=== PATIENT | female | born 1930 | race Caucasian/White ===

== ENCOUNTER 2017-10-26 19:03 | Inpatient (IN) | payer MEDICARE, OTHER ==
--- NOTE | 2017-10-26 20:23 | ED Physician Chart ---
ED Chief Complaint/HPI - Patient Information Date Seen:: 10/26/17 Time Seen:: 20:20 Chief Complaint:: agitation History of Present Illness:: location: general quality: agitation severity: moderate duration: one day context: SNF pt with psyc history today very agitated, striking out at staff and other residents, confused. no trauma to staff or patient reported. pt has no pain complaint. pt is deaf, cannot hear but is alert and can follow commands and read. transferred here from [facility]. no fever, no vomiting, no diarrhea. mod factors: none assoc s/s: none hx from SNF/EMS Allergies:: Allergies Allergy/AdvReac Type Severity Reaction Status Date / Time amoxicillin [From Augmentin] Allergy Verified 10/26/17 19:24 aspirin Allergy Verified 10/26/17 19:24 clavulanic acid Allergy Verified 10/26/17 19:24 [From Augmentin] Vitals:: Vital Signs - 8 hr 10/26/17 19:25 Temp 97.6 F HR 87 RR 19 BP 94/60 O2 Sat % 96 Historian:: EMS, Medical Records Review:: Nurse's Note Reviewed, EMS run form Reviewed ED Review of Systems - Review of Systems General/Constitutional: No fever Skin: No skin lesions ENT: No nasal drainage Neck: No stiffness Cardio Vascular: No edema Pulmonary: No cough GI: No vomiting, No diarrhea G/U: No hematuria Musculoskeletal: No bone or joint pain Psychiatric: Prior psych history Hematopoietic: No bruising Allergic/Immuno: No angioedema Neurological: No syncope, No seizure ED Past Medical History - Past Medical History Past Medical History: CHF, Dyslipidemia, Thyroid disorder, Other (pulmonary embolism) Family History: None Social History: Non Smoker, No Alcohol, No Drug Use, Single, Care Facility Surgical History: other (thyroidectomy) Psychiatricy History: Other Medication: Reviewed Family Medical History - Family Member Mother History Unknown: Yes ED Physical Exam - Physical Examination General/Constitutional: Awake, Well-developed, well-nourished, Alert, No distress, GCS 15, Non-toxic appearing, Ambulatory Head: Atraumatic Eyes: Lids, conjuctiva normal, PERRL, EOMI Skin: Nl inspection, No skin lesions, Well hydrated, No lymphadenopathy ENMT: External ears, nose nl, Nasal exam nl, Oropharynx nl Neck: Nontender, Full ROM w/o pain, No nuchal rigidity Respiratory: Nl effort/Exclusion, Clear to Auscultation, No Wheeze/Rhonchi/Rales Cardio Vascular: RRR, No murmur, gallop, rubs, NL S1 S2 GI: No tenderness/rebounding/guarding, Normal BS's, Nondistended : No CVA tenderness Extremities: No tenderness or effusion, Full ROM, normal strength in all extremities, No edema, Normal digits & nails Neuro/Psych: Normal motor strength, No focal deficits Misc: Normal back, No paraspinal tenderness ED Labs/Radiology/EKG Results - Lab Results Results: Laboratory Tests 10/26/17 10/26/17 10/26/17 20:30 20:30 20:30 WBC 6.4 RBC 4.96 Hgb 11.4 L Hct 35.5 L MCV 71.4 L MCH 23.0 L MCHC Differential 32.1 RDW 16.1 Plt Count 216 MPV 8.6 Band Neutrophils % 1 Neutrophils (Manual) 78 Lymphocytes 19 L Monocytes 2 Eosinophils 0 Basophils 0 Microcytosis 3+ Sodium 139 Potassium 4.0 Chloride 106 Carbon Dioxide 24.8 Anion Gap 12.2 BUN 27 H Creatinine 1.3 H Est GFR ( Amer) TNP Est GFR (Non-Af Amer) TNP BUN/Creatinine Ratio 20.8 Glucose 134 H Calcium 9.1 Total Bilirubin 0.5 AST 17 ALT 14 Alkaline Phosphatase 80 Total Protein 6.0 Albumin 3.7 Globulin 2.3 Albumin/Globulin Ratio 1.6 Triglycerides 64 Cholesterol 93 LDL Cholesterol Direct 39 L HDL Cholesterol 40 TSH 0.30 L Salicylates < 25.0 L Urine Opiates Screen Urine Methadone Screen Acetaminophen < 10.0 L Ur Barbiturates Screen Ur Tricyclics Screen Ur Phencyclidine Scrn Amphetamines Screen U Methamphetamines Scrn U Benzodiazepines Scrn U Cocaine Metab Screen U Cannabinoids Screen Ethyl Alcohol < 10 10/26/17 21:00 WBC RBC Hgb Hct MCV MCH MCHC Differential RDW Plt Count MPV Band Neutrophils % Neutrophils (Manual) Lymphocytes Monocytes Eosinophils Basophils Microcytosis Sodium Potassium Chloride Carbon Dioxide Anion Gap BUN Creatinine Est GFR ( Amer) Est GFR (Non-Af Amer) BUN/Creatinine Ratio Glucose Calcium Total Bilirubin AST ALT Alkaline Phosphatase Total Protein Albumin Globulin Albumin/Globulin Ratio Triglycerides Cholesterol LDL Cholesterol Direct HDL Cholesterol TSH Salicylates Urine Opiates Screen NEGATIVE Urine Methadone Screen NEGATIVE Acetaminophen Ur Barbiturates Screen NEGATIVE Ur Tricyclics Screen NEGATIVE Ur Phencyclidine Scrn NEGATIVE Amphetamines Screen NEGATIVE U Methamphetamines Scrn NEGATIVE U Benzodiazepines Scrn NEGATIVE U Cocaine Metab Screen NEGATIVE U Cannabinoids Screen NEGATIVE Ethyl Alcohol - EKG Interpretations Comments:: EKG NSR 80 prolonged [place] interval right bundle branch block inferior infarct, age indeterminate pt with no chest pain, no discomfort abnormal EKG with chronic findings ER READ ED Assessment - Assessment General Assessment: pt with stable vital signs in ER. ED Septic Shock - . Is Septic Shock (SBP<90, OR Lactate>4 mmol\L) present?: No - <6hrs of presentation: Vital Signs: Vital Signs - 8 hr 10/26/17 19:25 Temp 97.6 F HR 87 RR 19 BP 94/60 O2 Sat % 96 ED Reassessment (Disposition) - Reassessment Reassessment:: pt with medical clearance for asad psyc Reassessment Condition:: Unchanged - Diagnosis Diagnosis:: acute psychosis NOS, medical clearance for asad psyc - Patient Disposition Discharge/Transfer:: Acute Care w/in this hosp Admitted to:: [facility] Admitting Medical Physician:: Gopi Hodgson Admitting Psych Physician:: Kieran Drummond Time:: 23:05 Condition at Disposition:: Stable ED Discharge Plan - Patient Disposition Instructions: Psychosis
[2017-10-26 20:43] LABS: HEMATOCRIT 35.5 % (41.0-60); HEMOGLOBIN 11.4 gm/dL (12-16); MEAN CELL VOLUME 71.4 fl (81-100); MEAN CORPUSCULAR HGB CONC 32.1 pg (28.0-36.0); MEAN PLATELET VOLUME 8.6 fl; PLATELET COUNT 216 Th/cmm (150-400); RED BLOOD COUNT 4.96 Mil/cmm (3.80-5.20); RED CELL DISTRIBUTION WIDTH 16.1 % (11.5-20.0); WHITE BLOOD COUNT 6.4 Th/cmm (4.8-10.8)
[2017-10-26 20:46] LABS: MANUAL DIFF REQUIRED? YES
[2017-10-26 20:54] LABS: ACETAMINOPHEN < 10.0 ug/mL (10.0-30.0); ALB/GLOB RATIO 1.6 (1.0-1.8); ALBUMIN 3.7 gm/dL (3.7-5.3); ALKALINE PHOSPHATASE 80 U/L (34-104); ANION GAP 12.2 (7.0-16.0); BILIRUBIN,TOTAL 0.5 mg/dL (0.3-1.0); BUN - UREA NITROGEN 27 mg/dL (7-25); CALCIUM SERUM 9.1 mg/dL (8.6-10.3); CARBON DIOXIDE 24.8 mEq/L (21.0-31.0); CHLORIDE 106 mEq/L (98-107); CHOLESTEROL 93 mg/dL (<200); CREATININE - SERUM 1.3 mg/dL (0.6-1.2); GLUCOSE 134 mg/dL (70-105); HDL -HIGH DENSITY LIPOPROTEIN 40 mg/dL (23-92); SGOT 17 U/L (13-39); SGPT/ALT 14 U/L (7-52); SODIUM SERUM 139 mEq/L (136-145); TRIGLYCERIDES 64 mg/dL (<150)
[2017-10-26 21:11] LABS: SALICYLATES (ASPIRIN) < 25.0 mg/L (30.0-100.0)
[2017-10-26 21:16] LABS: BAND NEUTROPHILE 1 % (0-10); BASOPHIL 0 % (0-3); EOSINOPHIL 0 % (0-5); LYMPHOCYTE 19 % (20-50); MONOCYTE 2 % (2-10); NEUTROPHILS 78 % (40-80); TOTAL CELLS COUNTED 100
[2017-10-26 21:44] LABS: AMPHETAMINE URINE NEGATIVE (NEGATIVE); BARBITURATES URINE NEGATIVE (NEGATIVE); BENZODIAZEPINES QUAL URINE NEGATIVE (NEGATIVE); CANNABINOID THC NEGATIVE (NEGATIVE); COCAINE METABOLITE QUAL URINE NEGATIVE (NEGATIVE); METHADONE URINE NEGATIVE (NEGATIVE); METHAMPHETAMINES QUAL URINE NEGATIVE (NEGATIVE); OPIATES (MORPHINE) QUAL. URINE NEGATIVE (NEGATIVE); PHENCYCLIDINE (PCP) URINE NEGATIVE (NEGATIVE); TRICYCLICS (TCA) QUAL. URINE NEGATIVE (NEGATIVE)
[2017-10-27 00:12] VITALS: BP 100/64
--- NOTE | 2017-10-27 13:17 | Internal Medicine Prog Note ---
Internal Medicine Subjective - Subjective Service Date: 10/27/17 ([facility] dictated [id number]) Internal Medicine Objective - Results Result Diagrams: 10/26/17 20:30 10/26/17 20:30 Recent Labs: Laboratory Last Values WBC 6.4 Th/cmm (4.8-10.8) 10/26/17 20:30 RBC 4.96 Mil/cmm (3.80-5.20) 10/26/17 20:30 Hgb 11.4 gm/dL (12-16) L 10/26/17 20:30 Hct 35.5 % (41.0-60) L 10/26/17 20:30 MCV 71.4 fl (81-100) L 10/26/17 20:30 MCH 23.0 pg (27.0-31.0) L 10/26/17 20:30 MCHC Differential 32.1 pg (28.0-36.0) 10/26/17 20:30 RDW 16.1 % (11.5-20.0) 10/26/17 20:30 Plt Count 216 Th/cmm (150-400) 10/26/17 20:30 MPV 8.6 fl 10/26/17 20:30 Band Neutrophils % 1 % (0-10) 10/26/17 20:30 Neutrophils (Manual) 78 % (40-80) 10/26/17 20:30 Lymphocytes 19 % (20-50) L 10/26/17 20:30 Monocytes 2 % (2-10) 10/26/17 20:30 Eosinophils 0 % (0-5) 10/26/17 20:30 Basophils 0 % (0-3) 10/26/17 20:30 Microcytosis 3+ 10/26/17 20:30 Sodium 139 mEq/L (136-145) 10/26/17 20:30 Potassium 4.0 mEq/L (3.5-5.1) 10/26/17 20:30 Chloride 106 mEq/L (98-107) 10/26/17 20:30 Carbon Dioxide 24.8 mEq/L (21.0-31.0) 10/26/17 20:30 Anion Gap 12.2 (7.0-16.0) 10/26/17 20:30 BUN 27 mg/dL (7-25) H 10/26/17 20:30 Creatinine 1.3 mg/dL (0.6-1.2) H 10/26/17 20:30 Est GFR ( Amer) TNP 10/26/17 20:30 Est GFR (Non-Af Amer) TNP 10/26/17 20:30 BUN/Creatinine Ratio 20.8 10/26/17 20:30 Glucose 134 mg/dL (70-105) H 10/26/17 20:30 Calcium 9.1 mg/dL (8.6-10.3) 10/26/17 20:30 Total Bilirubin 0.5 mg/dL (0.3-1.0) 10/26/17 20:30 AST 17 U/L (13-39) 10/26/17 20:30 ALT 14 U/L (7-52) 10/26/17 20:30 Alkaline Phosphatase 80 U/L (34-104) 10/26/17 20:30 Total Protein 6.0 gm/dL (6.0-8.3) 10/26/17 20:30 Albumin 3.7 gm/dL (3.7-5.3) 10/26/17 20:30 Globulin 2.3 gm/dL 10/26/17 20:30 Albumin/Globulin Ratio 1.6 (1.0-1.8) 10/26/17 20:30 Triglycerides 64 mg/dL (<150) 10/26/17 20:30 Cholesterol 93 mg/dL (<200) 10/26/17 20:30 LDL Cholesterol Direct 39 mg/dL (75-193) L 10/26/17 20:30 HDL Cholesterol 40 mg/dL (23-92) 10/26/17 20:30 TSH 0.30 uIU/ml (0.34-5.60) L 10/26/17 20:30 Salicylates < 25.0 mg/L (30.0-100.0) L 10/26/17 20:30 Urine Opiates Screen NEGATIVE (NEGATIVE) 10/26/17 21:00 Urine Methadone Screen NEGATIVE (NEGATIVE) 10/26/17 21:00 Acetaminophen < 10.0 ug/mL (10.0-30.0) L 10/26/17 20:30 Ur Barbiturates Screen NEGATIVE (NEGATIVE) 10/26/17 21:00 Ur Tricyclics Screen NEGATIVE (NEGATIVE) 10/26/17 21:00 Ur Phencyclidine Scrn NEGATIVE (NEGATIVE) 10/26/17 21:00 Amphetamines Screen NEGATIVE (NEGATIVE) 10/26/17 21:00 U Methamphetamines Scrn NEGATIVE (NEGATIVE) 10/26/17 21:00 U Benzodiazepines Scrn NEGATIVE (NEGATIVE) 10/26/17 21:00 U Cocaine Metab Screen NEGATIVE (NEGATIVE) 10/26/17 21:00 U Cannabinoids Screen NEGATIVE (NEGATIVE) 10/26/17 21:00 Ethyl Alcohol < 10 mg/dL (0-10) 10/26/17 20:30 - Physical Exam Vitals and I&O: Vital Signs Temp 99.3 F 10/27/17 06:44 Pulse 71 10/27/17 06:44 Resp 20 10/27/17 06:44 BP 96/54 10/27/17 06:44 Pulse Ox 98 10/27/17 06:44 Intake & Output 10/26/17 10/27/17 10/27/17 18:59 06:59 18:59 Weight (lbs) 165 lb Other: # Voids 3 # Bowel Movements 0 Weight Source Bedscale Active Medications: Current Medications Acetaminophen (Tylenol) 650 mg PO Q4HR PRN PRN Reason: Mild Pain / Temp above 100 Stop: 12/26/17 00:12 Acetaminophen (Tylenol) 325 mg PO Q4H PRN PRN Reason: MILD PAIN Stop: 12/26/17 12:39 Atorvastatin Calcium (Lipitor) 20 mg PO HS BEVERLY Stop: 12/26/17 20:59 Ferrous Sulfate (Iron) 325 mg PO DAILY BEVERLY Stop: 12/27/17 08:59 Furosemide (Lasix) 20 mg PO DAILY [facility]LY Stop: 12/27/17 08:59 Levothyroxine Sodium (Synthroid) 0.1 mg PO QDAC [facility] Stop: 12/27/17 07:29 Lorazepam (Ativan) 0.5 mg PO Q4H PRN; Protocol PRN Reason: Anxiety Stop: 12/26/17 00:12 Losartan Potassium (Cozaar) 100 mg PO DAILY BEVERLY Stop: 12/27/17 08:59 Magnesium Hydroxide (Milk Of Magnesia) 30 ml PO DAILY BEVERLY Stop: 12/27/17 08:59 Magnesium Oxide (Mag-Oxide) 400 mg PO DAILY BEVERLY Stop: 12/27/17 08:59 Pantoprazole Sodium (Protonix) 40 mg PO QDAC [facility] Stop: 12/27/17 07:29 Potassium Chloride (Klor-Con) 20 meq PO DAILY BEVERLY Stop: 12/27/17 08:59 Rivaroxaban (Xarelto) 10 mg PO DAILY BEVERLY Stop: 12/27/17 08:59 Zolpidem Tartrate (Ambien) 5 mg PO HS PRN PRN Reason: Insomnia Stop: 12/26/17 00:12
--- NOTE | 2017-10-27 15:15 | History & Physical ---
ADMIT DATE: 10/27/2017 CHIEF COMPLAINT: Agitation. HISTORY OF PRESENT ILLNESS: This is an 87-year-old female who is a skilled nursing resident with a 1-day history of agitation and striking out again towards nursing staff. PAST MEDICAL HISTORY: CHF, dyslipidemia, hypothyroid, pulmonary embolism. FAMILY HISTORY: Noncontributory. SOCIAL HISTORY: The patient is a skilled nursing resident requiring 24-hour nursing care. SURGICAL HISTORY: Thyroidectomy. MEDICATIONS: Please see medication list. REVIEW OF SYSTEMS: GENERAL: Denies any fevers and chills. CARDIOVASCULAR: Denies chest pain. RESPIRATORY: Denies shortness of breath. GASTROINTESTINAL: Denies nausea, vomiting, abdominal pain. GENITOURINARY: Denies increased frequency or dysuria. NEUROLOGIC: No headaches, seizures or syncope. All other systems are reviewed and are negative. PHYSICAL EXAMINATION: GENERAL: Elderly female, awake, alert with some confusion. No apparent distress. VITAL SIGNS: Temperature 99.3, heart rate 71, blood pressure 196/54, respirations 20, O2 98%. HEENT: Head normocephalic, atraumatic. NECK: Supple. No mass. LUNGS: Clear bilaterally. HEART: Regular rate and rhythm. ABDOMEN: Soft, nontender. LABORATORY DATA: WBC 6.4, H and H 11.4 and 35.5, platelet of 216. Sodium 139, potassium 4.0, chloride 106, BUN 27, creatinine 1.3. ASSESSMENT: Acute dehydration, agitation, hypothyroid, congestive heart failure, dyslipidemia. PLAN: We will give the patient some gentle hydration. We will monitor the patient's I's and O's. Fall precautions will be initiated. We will continue to monitor this patient. JOB# [id number]
[2017-10-27 17:27] LABS: A1C % 6.7 % (4.0-6.0)
--- NOTE | 2017-10-27 20:18 | Psychosocial Evaluation ---
DATE OF SERVICE: 10/27/2017 IDENTIFYING DATA: The patient is an 87-year-old woman, resident of [facility]. JUSTIFICATION FOR HOSPITALIZATION: The patient is admitted here for acute agitation and confusion. CHIEF COMPLAINT: "I don't know, I cannot hear." HISTORY OF PRESENT ILLNESS: This is the first psychiatric hospitalization to [facility] for this patient who is reported to have been getting easily agitated and has been screaming and yelling. The patient could not be contained at a lower level of care and hence the patient has been referred over here for stabilization, I tried to interview the patient and get more information, but the patient is stating that she is hard of hearing and she cannot give any information. It is noted that the patient's lower extremity is noted to be extremely edematous and the case management coordinator and the staff have been requested to contact Dr. Barakat to review the labs and examined the patient. PAST PSYCHIATRIC HISTORY: Details are not known. MEDICAL HISTORY AND PHYSICAL EXAMINATION: Requested done by Dr. Barakat. SUBSTANCE ABUSE HISTORY: None. PHYSICAL OR SEXUAL ABUSE HISTORY: None. LEGAL PROBLEMS: None at this time. MENTAL STATUS EXAMINATION: The patient is an 87-year-old woman looking at her stated age, superficially cooperative. Eye contact is poor. Mood is irritable. Affect is constricted. Insight and judgment at this time are to be still impaired. Impulse control seems to be limited. The patient has poor short-term and residential memory deficits. The patient has been getting easily agitated. The patient is confused and patient has been having problems with both short as well as long-term memory. The patient gets easily angry and frustrated. DIAGNOSTIC IMPRESSION: AXIS I: Dementia and behavioral change, secondary trait. AXIS II: None. AXIS III: As per Dr. Hodgson. IMMEDIATE TREATMENT PLAN: The patient is going to be observed on inpatient unit, provided with supportive psychotherapy. The patient is going to be closely monitored. Once stabilized, the patient is going to be discharged to [facility] to be followed up on an outpatient basis. JOB# [id number]
[2017-10-27] MEDS: Atorvastatin Calcium 10 MG TAB PO SCH (21:25)
[2017-10-28] MEDS: Pantoprazole 40 mg EC Tab PO SCH (06:39)
[2017-10-28] MEDS: Levothyroxine 0.1 Mg Tab PO SCH (06:39)
[2017-10-28] MEDS: Ferrous Sulfate 325 MG TAB PO SCH (08:48)
[2017-10-28] MEDS: Potassium Chloride 20 mEq ER Tab PO SCH (08:48)
[2017-10-28] MEDS: Magnesium Hydroxide (MOM) 30 mL UDC PO SCH ×2 (08:48→09:01)
[2017-10-28] MEDS: Multivitamin w/ Minerals Tab PO SCH (08:48)
--- NOTE | 2017-10-28 15:05 | Internal Medicine Prog Note ---
Internal Medicine Subjective - Subjective Service Date: 10/28/17 Patient seen and examined:: with staff Patient is:: awake Per staff patient has:: tolerating meds Internal Medicine Objective - Results Result Diagrams: 10/26/17 20:30 10/26/17 20:30 Recent Labs: Laboratory Last Values WBC 6.4 Th/cmm (4.8-10.8) 10/26/17 20:30 RBC 4.96 Mil/cmm (3.80-5.20) 10/26/17 20:30 Hgb 11.4 gm/dL (12-16) L 10/26/17 20:30 Hct 35.5 % (41.0-60) L 10/26/17 20:30 MCV 71.4 fl (81-100) L 10/26/17 20:30 MCH 23.0 pg (27.0-31.0) L 10/26/17 20:30 MCHC Differential 32.1 pg (28.0-36.0) 10/26/17 20:30 RDW 16.1 % (11.5-20.0) 10/26/17 20:30 Plt Count 216 Th/cmm (150-400) 10/26/17 20:30 MPV 8.6 fl 10/26/17 20:30 Band Neutrophils % 1 % (0-10) 10/26/17 20:30 Neutrophils (Manual) 78 % (40-80) 10/26/17 20:30 Lymphocytes 19 % (20-50) L 10/26/17 20:30 Monocytes 2 % (2-10) 10/26/17 20:30 Eosinophils 0 % (0-5) 10/26/17 20:30 Basophils 0 % (0-3) 10/26/17 20:30 Microcytosis 3+ 10/26/17 20:30 Sodium 139 mEq/L (136-145) 10/26/17 20:30 Potassium 4.0 mEq/L (3.5-5.1) 10/26/17 20:30 Chloride 106 mEq/L (98-107) 10/26/17 20:30 Carbon Dioxide 24.8 mEq/L (21.0-31.0) 10/26/17 20:30 Anion Gap 12.2 (7.0-16.0) 10/26/17 20:30 BUN 27 mg/dL (7-25) H 10/26/17 20:30 Creatinine 1.3 mg/dL (0.6-1.2) H 10/26/17 20:30 Est GFR ( Amer) TNP 10/26/17 20:30 Est GFR (Non-Af Amer) TNP 10/26/17 20:30 BUN/Creatinine Ratio 20.8 10/26/17 20:30 Glucose 134 mg/dL (70-105) H 10/26/17 20:30 Hemoglobin A1c % 6.7 % (4.0-6.0) H 10/26/17 20:30 Calcium 9.1 mg/dL (8.6-10.3) 10/26/17 20:30 Total Bilirubin 0.5 mg/dL (0.3-1.0) 10/26/17 20:30 AST 17 U/L (13-39) 10/26/17 20:30 ALT 14 U/L (7-52) 10/26/17 20:30 Alkaline Phosphatase 80 U/L (34-104) 10/26/17 20:30 Total Protein 6.0 gm/dL (6.0-8.3) 10/26/17 20:30 Albumin 3.7 gm/dL (3.7-5.3) 10/26/17 20:30 Globulin 2.3 gm/dL 10/26/17 20:30 Albumin/Globulin Ratio 1.6 (1.0-1.8) 10/26/17 20:30 Triglycerides 64 mg/dL (<150) 10/26/17 20:30 Cholesterol 93 mg/dL (<200) 10/26/17 20:30 LDL Cholesterol Direct 39 mg/dL (75-193) L 10/26/17 20:30 HDL Cholesterol 40 mg/dL (23-92) 10/26/17 20:30 TSH 0.30 uIU/ml (0.34-5.60) L 10/26/17 20:30 Salicylates < 25.0 mg/L (30.0-100.0) L 10/26/17 20:30 Urine Opiates Screen NEGATIVE (NEGATIVE) 10/26/17 21:00 Urine Methadone Screen NEGATIVE (NEGATIVE) 10/26/17 21:00 Acetaminophen < 10.0 ug/mL (10.0-30.0) L 10/26/17 20:30 Ur Barbiturates Screen NEGATIVE (NEGATIVE) 10/26/17 21:00 Ur Tricyclics Screen NEGATIVE (NEGATIVE) 10/26/17 21:00 Ur Phencyclidine Scrn NEGATIVE (NEGATIVE) 10/26/17 21:00 Amphetamines Screen NEGATIVE (NEGATIVE) 10/26/17 21:00 U Methamphetamines Scrn NEGATIVE (NEGATIVE) 10/26/17 21:00 U Benzodiazepines Scrn NEGATIVE (NEGATIVE) 10/26/17 21:00 U Cocaine Metab Screen NEGATIVE (NEGATIVE) 10/26/17 21:00 U Cannabinoids Screen NEGATIVE (NEGATIVE) 10/26/17 21:00 Ethyl Alcohol < 10 mg/dL (0-10) 10/26/17 20:30 - Physical Exam Vitals and I&O: Vital Signs Temp 98.4 F 10/28/17 06:28 Pulse 69 10/28/17 08:33 Resp 19 10/28/17 06:28 BP 102/64 10/28/17 08:33 Pulse Ox 95 10/28/17 06:28 Intake & Output 10/27/17 10/28/17 10/28/17 18:59 06:59 18:59 Intake Total 900 240 Balance 900 240 Intake: Oral 900 240 Other: # Voids 3 1 # Bowel Movements 0 Active Medications: Current Medications Acetaminophen (Tylenol) 650 mg PO Q4HR PRN PRN Reason: Mild Pain / Temp above 100 Stop: 12/26/17 00:12 Acetaminophen (Tylenol) 325 mg PO Q4H PRN PRN Reason: MILD PAIN Stop: 12/26/17 12:39 Atorvastatin Calcium (Lipitor) 20 mg PO HS BEVERLY Stop: 12/26/17 20:59 Last Admin: 10/27/17 21:25 Dose: 20 mg Ferrous Sulfate (Iron) 325 mg PO DAILY BEVERLY Stop: 12/27/17 08:59 Last Admin: 10/28/17 08:48 Dose: 325 mg Furosemide (Lasix) 20 mg PO DAILY [facility] Stop: 12/27/17 08:59 Last Admin: 10/28/17 08:33 Dose: Not Given Levothyroxine Sodium (Synthroid) 0.1 mg PO QDAC [facility] Stop: 12/27/17 07:29 Last Admin: 04/11/18 06:39 Dose: 0.1 mg Lorazepam (Ativan) 0.5 mg PO Q4H PRN; Protocol PRN Reason: Anxiety Stop: 12/26/17 00:12 Losartan Potassium (Cozaar) 100 mg PO DAILY BEVER[facility] Stop: 12/27/17 08:59 Last Admin: 10/28/17 08:33 Dose: Not Given Magnesium Hydroxide (Milk Of Magnesia) 30 ml PO DAILY [facility]LY Stop: 12/27/17 08:59 Last Admin: 10/28/17 09:01 Dose: Not Given Magnesium Oxide (Mag-Oxide) 400 mg PO DAILY [facility] Stop: 12/27/17 08:59 Last Admin: 10/28/17 08:49 Dose: 400 mg Pantoprazole Sodium (Protonix) 40 mg PO QDAC [facility] Stop: 12/27/17 07:29 Last Admin: 10/28/17 06:39 Dose: 40 mg Potassium Chloride (Klor-Con) 20 meq PO DAILY BEVERLY Stop: 12/27/17 08:59 Last Admin: 10/28/17 08:48 Dose: Not Given Rivaroxaban (Xarelto) 10 mg PO DAILY [facility] Stop: 12/27/17 08:59 Last Admin: 10/28/17 08:49 Dose: 10 mg Zolpidem Tartrate (Ambien) 5 mg PO HS PRN PRN Reason: Insomnia Stop: 12/26/17 00:12 General: alert HEENT: NC/AT, PERRLA Neck: Supple Lungs: CTAB Cardiovascular: RRR, Normal S1, Normal S2, without murmur Neurological: alert Internal Medicine Assmt/Plan - Assessment Assessment: acute dehydration agitation hypothyroid chf dyslipidemia - Plan Plan: hydrate patient monitor i+o fall precautions continue current plan of care
[2017-10-28] MEDS: Atorvastatin Calcium 10 MG TAB PO SCH (20:20)
--- NOTE | 2017-10-29 02:23 | Consultation ---
DATE OF CONSULTATION: 10/28/2017 REQUESTING PHYSICIAN: Dr. Kieran Drummond. TYPE OF CONSULTATION: Psychology. HISTORY OF PRESENT ILLNESS: The following is by review of the medical record and by patient's self report. The patient is an 87-year-old female who is a resident of [facility]. According to record review, the patient has been getting easily agitated with screaming and yelling episodes according to the staff at her facility. The patient was unable to be contained and behaviorally redirected. The patient presents as hard of hearing as well as guarded. The patient denied any suicidal ideation, plan or intention. The patient responded mostly by saying she was unable to hear this appeals writer and the clinical interview assessment questions. PAST MEDICAL HISTORY: Please see history and physical by Dr. Barakat. PAST PSYCHIATRIC HISTORY: Unknown. Records unavailable at this time. SUBSTANCE ABUSE HISTORY: None according to record review. PSYCHOSOCIAL HISTORY: The patient is a resident of [facility]. The patient did not answer questions about her occupational history or educational history or mu-ism affiliation. The patient did not answer questions about physical or sexual abuse history or any legal issues. The patient is hard of hearing and was having difficulty responding relevantly and coherently. MENTAL STATUS EXAMINATION: The patient appears to be her stated age. The patient's attitude is superficially cooperative. Eye contact is poor. Speech is slow and delayed. The patient presents as quite hard of hearing. Mood is irritable. Affect is constricted. The patient did not participate in the assessment for memory. The patient may have both short-term and long-term memory deficits. The patient denied any suicidal ideation, plan or intention. She denied any auditory or visual hallucinations or delusions. The patient's thought process shows to be confused and highly distractible. The patient's behavior has been easily agitated and frustrated according to the staff on the unit. Impulse control is limited. Sensorium is alert and oriented to self and place only. The patient did not participate in the interpretation of proverbs. Insight is poor. Judgment is compromised. DIAGNOSTIC IMPRESSION: AXIS I: Dementia with behavioral disturbance. AXIS II: Deferred. AXIS III: Please see history and physical by Dr. aBrakat. TREATMENT PLAN: The patient has been seen by Dr. Drummond for psychiatric evaluation and for the management of the patient's psychotropic medications. We will provide supportive psychotherapy. We will provide reality orientation, reality differentiation and reality integration. We will provide motivational enhancement for the patient to become compliant and stay compliant with all aspects of her care and treatment. We will provide coping strategies for phase of life issues. We will provide stress management skills to increase the patient's frustration tolerance as well as to encourage her to verbalize her concerns rather than act out. We will provide coping strategies for phase of life issues. Thank you, Dr. Drummond, for this consult and the opportunity to participate with you in this patient's care. JOB# [id number] GABRIELA
[2017-10-29] MEDS: Levothyroxine 0.1 Mg Tab PO SCH (06:33)
[2017-10-29] MEDS: Pantoprazole 40 mg EC Tab PO SCH (06:33)
--- NOTE | 2017-10-29 07:17 | Progress Notes ---
DATE: 10/28/2017 PSYCHIATRIC PROGRESS NOTE Staff was spoken to. The patient is interviewed. Mood is noted to be irritable. Affect is constricted. Insight and judgment are noted to be still impaired. The patient has been having difficult time to cope with the stress. The patient is getting easily agitated. Coping skills at this time are noted to be very poor. No side effects to the medications are noted. In view of her psychosis, it is decided to add 12.5 mg of the Seroquel at night time and follow the patient up. It is noted that the patient has been having both short-term as well as long-term memory deficit, but the problem with the patient is agitation and psychosis at this time. [facility]# [id number]
[2017-10-29] MEDS: Multivitamin w/ Minerals Tab PO SCH (09:48)
[2017-10-29] MEDS: Potassium Chloride 20 mEq ER Tab PO SCH (09:48)
[2017-10-29] MEDS: Ferrous Sulfate 325 MG TAB PO SCH (09:48)
[2017-10-29] MEDS: Magnesium Hydroxide (MOM) 30 mL UDC PO SCH (09:48)
--- NOTE | 2017-10-29 13:09 | Internal Medicine Prog Note ---
Internal Medicine Subjective - Subjective Service Date: 10/29/17 Patient is:: awake Per staff patient has:: tolerating meds Internal Medicine Objective - Results Result Diagrams: 10/26/17 20:30 10/26/17 20:30 Recent Labs: Laboratory Last Values WBC 6.4 Th/cmm (4.8-10.8) 10/26/17 20:30 RBC 4.96 Mil/cmm (3.80-5.20) 10/26/17 20:30 Hgb 11.4 gm/dL (12-16) L 10/26/17 20:30 Hct 35.5 % (41.0-60) L 10/26/17 20:30 MCV 71.4 fl (81-100) L 10/26/17 20:30 MCH 23.0 pg (27.0-31.0) L 10/26/17 20:30 MCHC Differential 32.1 pg (28.0-36.0) 10/26/17 20:30 RDW 16.1 % (11.5-20.0) 10/26/17 20:30 Plt Count 216 Th/cmm (150-400) 10/26/17 20:30 MPV 8.6 fl 10/26/17 20:30 Band Neutrophils % 1 % (0-10) 10/26/17 20:30 Neutrophils (Manual) 78 % (40-80) 10/26/17 20:30 Lymphocytes 19 % (20-50) L 10/26/17 20:30 Monocytes 2 % (2-10) 10/26/17 20:30 Eosinophils 0 % (0-5) 10/26/17 20:30 Basophils 0 % (0-3) 10/26/17 20:30 Microcytosis 3+ 10/26/17 20:30 Sodium 139 mEq/L (136-145) 10/26/17 20:30 Potassium 4.0 mEq/L (3.5-5.1) 10/26/17 20:30 Chloride 106 mEq/L (98-107) 10/26/17 20:30 Carbon Dioxide 24.8 mEq/L (21.0-31.0) 10/26/17 20:30 Anion Gap 12.2 (7.0-16.0) 10/26/17 20:30 BUN 27 mg/dL (7-25) H 10/26/17 20:30 Creatinine 1.3 mg/dL (0.6-1.2) H 10/26/17 20:30 Est GFR ( Amer) TNP 10/26/17 20:30 Est GFR (Non-Af Amer) TNP 10/26/17 20:30 BUN/Creatinine Ratio 20.8 10/26/17 20:30 Glucose 134 mg/dL (70-105) H 10/26/17 20:30 Hemoglobin A1c % 6.7 % (4.0-6.0) H 10/26/17 20:30 Calcium 9.1 mg/dL (8.6-10.3) 10/26/17 20:30 Total Bilirubin 0.5 mg/dL (0.3-1.0) 10/26/17 20:30 AST 17 U/L (13-39) 10/26/17 20:30 ALT 14 U/L (7-52) 10/26/17 20:30 Alkaline Phosphatase 80 U/L (34-104) 10/26/17 20:30 Total Protein 6.0 gm/dL (6.0-8.3) 10/26/17 20:30 Albumin 3.7 gm/dL (3.7-5.3) 10/26/17 20:30 Globulin 2.3 gm/dL 10/26/17 20:30 Albumin/Globulin Ratio 1.6 (1.0-1.8) 10/26/17 20:30 Triglycerides 64 mg/dL (<150) 10/26/17 20:30 Cholesterol 93 mg/dL (<200) 10/26/17 20:30 LDL Cholesterol Direct 39 mg/dL (75-193) L 10/26/17 20:30 HDL Cholesterol 40 mg/dL (23-92) 10/26/17 20:30 TSH 0.30 uIU/ml (0.34-5.60) L 10/26/17 20:30 Salicylates < 25.0 mg/L (30.0-100.0) L 10/26/17 20:30 Urine Opiates Screen NEGATIVE (NEGATIVE) 10/26/17 21:00 Urine Methadone Screen NEGATIVE (NEGATIVE) 10/26/17 21:00 Acetaminophen < 10.0 ug/mL (10.0-30.0) L 04/09/18 20:30 Ur Barbiturates Screen NEGATIVE (NEGATIVE) 10/26/17 21:00 Ur Tricyclics Screen NEGATIVE (NEGATIVE) 10/26/17 21:00 Ur Phencyclidine Scrn NEGATIVE (NEGATIVE) 10/26/17 21:00 Amphetamines Screen NEGATIVE (NEGATIVE) 10/26/17 21:00 U Methamphetamines Scrn NEGATIVE (NEGATIVE) 10/26/17 21:00 U Benzodiazepines Scrn NEGATIVE (NEGATIVE) 10/26/17 21:00 U Cocaine Metab Screen NEGATIVE (NEGATIVE) 10/26/17 21:00 U Cannabinoids Screen NEGATIVE (NEGATIVE) 10/26/17 21:00 Ethyl Alcohol < 10 mg/dL (0-10) 10/26/17 20:30 RPR NONREACTIVE (NONREACTIVE) 10/26/17 20:30 - Physical Exam Vitals and I&O: Vital Signs Temp 97 F 10/29/17 07:10 Pulse 69 10/29/17 07:10 Resp 20 10/29/17 07:10 BP 115/64 10/29/17 07:10 Pulse Ox 98 10/29/17 07:10 Intake & Output 10/28/17 10/29/17 10/29/17 18:59 06:59 18:59 Intake Total 1600 120 Balance 1600 120 Intake: Oral 1600 120 Other: # Voids 4 3 # Bowel Movements 1 Active Medications: Current Medications Acetaminophen (Tylenol) 650 mg PO Q4HR PRN PRN Reason: Mild Pain / Temp above 100 Stop: 12/26/17 00:12 Acetaminophen (Tylenol) 325 mg PO Q4H PRN PRN Reason: MILD PAIN Stop: 12/26/17 12:39 Atorvastatin Calcium (Lipitor) 20 mg PO HS [facility] Stop: 12/26/17 20:59 Last Admin: 10/28/17 20:20 Dose: 20 mg Ferrous Sulfate (Iron) 325 mg PO DAILY [facility] Stop: 12/27/17 08:59 Last Admin: 10/29/17 09:48 Dose: 325 mg Furosemide (Lasix) 20 mg PO DAILY [facility] Stop: 12/27/17 08:59 Last Admin: 10/29/17 09:40 Dose: Not Given Levothyroxine Sodium (Synthroid) 0.1 mg PO QDAC [facility] Stop: 12/27/17 07:29 Last Admin: 10/29/17 06:33 Dose: 0.1 mg Lorazepam (Ativan) 0.5 mg PO Q4H PRN; Protocol PRN Reason: Anxiety Stop: 12/26/17 00:12 Losartan Potassium (Cozaar) 100 mg PO DAILY [facility] Stop: 12/27/17 08:59 Last Admin: 10/29/17 09:40 Dose: Not Given Magnesium Hydroxide (Milk Of Magnesia) 30 ml PO DAILY [facility] Stop: 12/27/17 08:59 Last Admin: 10/29/17 09:48 Dose: Not Given Magnesium Oxide (Mag-Oxide) 400 mg PO DAILY [facility] Stop: 12/27/17 08:59 Last Admin: 10/29/17 09:48 Dose: 400 mg Pantoprazole Sodium (Protonix) 40 mg PO QDAC [facility] Stop: 12/27/17 07:29 Last Admin: 10/29/17 06:33 Dose: 40 mg Potassium Chloride (Klor-Con) 20 meq PO DAILY [facility] Stop: 12/27/17 08:59 Last Admin: 10/29/17 09:48 Dose: Not Given Quetiapine Fumarate (Seroquel) 12.5 mg PO HS [facility] PRN Reason: Protocol Stop: 12/27/17 20:59 Rivaroxaban (Xarelto) 10 mg PO DAILY [facility] Stop: 12/27/17 08:59 Last Admin: 10/29/17 09:48 Dose: 10 mg Zolpidem Tartrate (Ambien) 5 mg PO HS PRN PRN Reason: Insomnia Stop: 12/26/17 00:12 General: alert HEENT: NC/AT, PERRLA Neck: Supple Lungs: CTAB Cardiovascular: RRR, Normal S1, Normal S2, without murmur Neurological: alert Internal Medicine Assmt/Plan - Assessment Assessment: acute dehydration agitation hypothyroid chf dyslipidemia - Plan Plan: hydrate patient monitor i+o fall precautions continue current plan of care
[2017-10-29] MEDS: Atorvastatin Calcium 10 MG TAB PO SCH (21:00)
--- NOTE | 2017-10-29 23:35 | Progress Notes ---
DATE: 10/29/2017 SUBJECTIVE: Staff was spoken to. The patient is interviewed. Mood is irritable. Affect is constricted. Insight and judgment at this time are noted to be still impaired. Impulse control is noted to be limited. The patient has been having difficult time to participate in the groups. The patient is getting easily irritable. The patient is confused and has problem with both short-term as well as long-term memories. The patient has been placed on low dose of Seroquel last night in view of her paranoia. The patient has been able to tolerate the medications. No side effects to the medications are noted at this time. ASSESSMENT: The patient is still paranoid and confused. PLAN: To continue the patient with the supportive therapy. I encouraged the patient to verbalize the concerns rather than to act out. JOB# [id number]
[2017-10-30] MEDS: Pantoprazole 40 mg EC Tab PO SCH (06:50)
[2017-10-30] MEDS: Levothyroxine 0.1 Mg Tab PO SCH (06:50)
[2017-10-30] MEDS: Ferrous Sulfate 325 MG TAB PO SCH (09:02)
[2017-10-30] MEDS: Multivitamin w/ Minerals Tab PO SCH (09:03)
[2017-10-30] MEDS: Potassium Chloride 20 mEq ER Tab PO SCH (09:03)
[2017-10-30] MEDS: Magnesium Hydroxide (MOM) 30 mL UDC PO SCH (09:03)
--- NOTE | 2017-10-30 13:33 | Internal Medicine Prog Note ---
Internal Medicine Subjective - Subjective Service Date: 10/30/17 Patient is:: awake Per staff patient has:: tolerating meds Internal Medicine Objective - Results Result Diagrams: 10/26/17 20:30 10/26/17 20:30 Recent Labs: Laboratory Last Values WBC 6.4 Th/cmm (4.8-10.8) 10/26/17 20:30 RBC 4.96 Mil/cmm (3.80-5.20) 10/26/17 20:30 Hgb 11.4 gm/dL (12-16) L 10/26/17 20:30 Hct 35.5 % (41.0-60) L 10/26/17 20:30 MCV 71.4 fl (81-100) L 10/26/17 20:30 MCH 23.0 pg (27.0-31.0) L 10/26/17 20:30 MCHC Differential 32.1 pg (28.0-36.0) 10/26/17 20:30 RDW 16.1 % (11.5-20.0) 10/26/17 20:30 Plt Count 216 Th/cmm (150-400) 10/26/17 20:30 MPV 8.6 fl 10/26/17 20:30 Band Neutrophils % 1 % (0-10) 10/26/17 20:30 Neutrophils (Manual) 78 % (40-80) 10/26/17 20:30 Lymphocytes 19 % (20-50) L 10/26/17 20:30 Monocytes 2 % (2-10) 10/26/17 20:30 Eosinophils 0 % (0-5) 10/26/17 20:30 Basophils 0 % (0-3) 10/26/17 20:30 Microcytosis 3+ 10/26/17 20:30 Sodium 139 mEq/L (136-145) 10/26/17 20:30 Potassium 4.0 mEq/L (3.5-5.1) 10/26/17 20:30 Chloride 106 mEq/L (98-107) 10/26/17 20:30 Carbon Dioxide 24.8 mEq/L (21.0-31.0) 10/26/17 20:30 Anion Gap 12.2 (7.0-16.0) 10/26/17 20:30 BUN 27 mg/dL (7-25) H 10/26/17 20:30 Creatinine 1.3 mg/dL (0.6-1.2) H 10/26/17 20:30 Est GFR ( Amer) TNP 10/26/17 20:30 Est GFR (Non-Af Amer) TNP 10/26/17 20:30 BUN/Creatinine Ratio 20.8 10/26/17 20:30 Glucose 134 mg/dL (70-105) H 10/26/17 20:30 Hemoglobin A1c % 6.7 % (4.0-6.0) H 10/26/17 20:30 Calcium 9.1 mg/dL (8.6-10.3) 10/26/17 20:30 Total Bilirubin 0.5 mg/dL (0.3-1.0) 10/26/17 20:30 AST 17 U/L (13-39) 10/26/17 20:30 ALT 14 U/L (7-52) 10/26/17 20:30 Alkaline Phosphatase 80 U/L (34-104) 10/26/17 20:30 Total Protein 6.0 gm/dL (6.0-8.3) 10/26/17 20:30 Albumin 3.7 gm/dL (3.7-5.3) 10/26/17 20:30 Globulin 2.3 gm/dL 10/26/17 20:30 Albumin/Globulin Ratio 1.6 (1.0-1.8) 10/26/17 20:30 Triglycerides 64 mg/dL (<150) 10/26/17 20:30 Cholesterol 93 mg/dL (<200) 10/26/17 20:30 LDL Cholesterol Direct 39 mg/dL (75-193) L 10/26/17 20:30 HDL Cholesterol 40 mg/dL (23-92) 10/26/17 20:30 TSH 0.30 uIU/ml (0.34-5.60) L 10/26/17 20:30 Salicylates < 25.0 mg/L (30.0-100.0) L 10/26/17 20:30 Urine Opiates Screen NEGATIVE (NEGATIVE) 10/26/17 21:00 Urine Methadone Screen NEGATIVE (NEGATIVE) 10/26/17 21:00 Acetaminophen < 10.0 ug/mL (10.0-30.0) L 04/09/18 20:30 Ur Barbiturates Screen NEGATIVE (NEGATIVE) 10/26/17 21:00 Ur Tricyclics Screen NEGATIVE (NEGATIVE) 10/26/17 21:00 Ur Phencyclidine Scrn NEGATIVE (NEGATIVE) 10/26/17 21:00 Amphetamines Screen NEGATIVE (NEGATIVE) 10/26/17 21:00 U Methamphetamines Scrn NEGATIVE (NEGATIVE) 10/26/17 21:00 U Benzodiazepines Scrn NEGATIVE (NEGATIVE) 10/26/17 21:00 U Cocaine Metab Screen NEGATIVE (NEGATIVE) 10/26/17 21:00 U Cannabinoids Screen NEGATIVE (NEGATIVE) 10/26/17 21:00 Ethyl Alcohol < 10 mg/dL (0-10) 10/26/17 20:30 RPR NONREACTIVE (NONREACTIVE) 10/26/17 20:30 - Physical Exam Vitals and I&O: Vital Signs Temp 98.4 F 10/30/17 07:37 Pulse 63 10/30/17 09:02 Resp 19 10/30/17 07:37 BP 109/61 10/30/17 09:02 Pulse Ox 97 10/30/17 07:37 Intake & Output 10/29/17 10/30/17 10/30/17 18:59 06:59 18:59 Intake Total 1920 240 Balance 1920 240 Intake: Oral 1920 240 Other: # Voids 4 3 # Bowel Movements 1 1 Active Medications: Current Medications Acetaminophen (Tylenol) 650 mg PO Q4HR PRN PRN Reason: Mild Pain / Temp above 100 Stop: 12/26/17 00:12 Acetaminophen (Tylenol) 325 mg PO Q4H PRN PRN Reason: MILD PAIN Stop: 12/26/17 12:39 Last Admin: 10/29/17 21:11 Dose: 325 mg Atorvastatin Calcium (Lipitor) 20 mg PO HS [facility] Stop: 12/26/17 20:59 Last Admin: 10/29/17 21:00 Dose: 20 mg Ferrous Sulfate (Iron) 325 mg PO DAILY [facility] Stop: 12/27/17 08:59 Last Admin: 10/30/17 09:02 Dose: 325 mg Furosemide (Lasix) 20 mg PO DAILY [facility] Stop: 12/27/17 08:59 Last Admin: 10/30/17 09:02 Dose: 20 mg Levothyroxine Sodium (Synthroid) 0.1 mg PO QDAC [facility] Stop: 12/27/17 07:29 Last Admin: 10/30/17 06:50 Dose: 0.1 mg Lorazepam (Ativan) 0.5 mg PO Q4H PRN; Protocol PRN Reason: Anxiety Stop: 12/26/17 00:12 Losartan Potassium (Cozaar) 100 mg PO DAILY [facility] Stop: 12/27/17 08:59 Last Admin: 10/30/17 09:02 Dose: Not Given Magnesium Hydroxide (Milk Of Magnesia) 30 ml PO DAILY [facility] Stop: 12/27/17 08:59 Last Admin: 10/30/17 09:03 Dose: 30 ml Magnesium Oxide (Mag-Oxide) 400 mg PO DAILY [facility] Stop: 12/27/17 08:59 Last Admin: 10/30/17 09:03 Dose: 400 mg Pantoprazole Sodium (Protonix) 40 mg PO QDAC [facility] Stop: 12/27/17 07:29 Last Admin: 10/30/17 06:50 Dose: 40 mg Potassium Chloride (Klor-Con) 20 meq PO DAILY [facility] Stop: 12/27/17 08:59 Last Admin: 10/30/17 09:03 Dose: 20 meq Quetiapine Fumarate (Seroquel) 12.5 mg PO HS [facility] PRN Reason: Protocol Stop: 12/27/17 20:59 Last Admin: 10/29/17 21:04 Dose: 12.5 mg Rivaroxaban (Xarelto) 10 mg PO DAILY [facility] Stop: 12/27/17 08:59 Last Admin: 10/30/17 09:03 Dose: 10 mg Zolpidem Tartrate (Ambien) 5 mg PO HS PRN PRN Reason: Insomnia Stop: 12/26/17 00:12 General: alert HEENT: NC/AT, PERRLA Neck: Supple Lungs: CTAB Cardiovascular: RRR, Normal S1, Normal S2, without murmur Neurological: alert Internal Medicine Assmt/Plan - Assessment Assessment: acute dehydration agitation hypothyroid chf dyslipidemia - Plan Plan: hydrate patient monitor i+o fall precautions continue current plan of care
--- NOTE | 2017-10-30 19:16 | Progress Notes ---
DATE: 10/30/2017 SUBJECTIVE: Staff was spoken to. The patient is interviewed. Mood is noted to be depressed. Affect is constricted. The patient is isolative and withdrawn. Coping skills are noted to be very poor. No side effects to the medications are noted. The patient has been having difficult time to cope with the stress. The patient is getting easily upset towards the end of the day. No side effects to the medications are noted. The patient is currently 12.5 mg of the Seroquel and has been able to tolerate the medication. ASSESSMENT: The patient is still confused and demented. PLAN: To continue the patient with the supportive therapy and followup. JOB# [id number]
[2017-10-30] MEDS: Atorvastatin Calcium 10 MG TAB PO SCH (21:17)
[2017-10-31] MEDS: Levothyroxine 0.1 Mg Tab PO SCH (06:30)
[2017-10-31] MEDS: Pantoprazole 40 mg EC Tab PO SCH (06:30)
[2017-10-31] MEDS: Multivitamin w/ Minerals Tab PO SCH (09:17)
[2017-10-31] MEDS: Potassium Chloride 20 mEq ER Tab PO SCH (09:17)
[2017-10-31] MEDS: Ferrous Sulfate 325 MG TAB PO SCH (09:17)
[2017-10-31] MEDS: Magnesium Hydroxide (MOM) 30 mL UDC PO SCH (09:18)
--- NOTE | 2017-10-31 17:46 | Progress Notes ---
DATE: 10/31/2017 SUBJECTIVE: Staff was spoken to. The patient is interviewed. Mood is noted to be depressed. Affect is constricted. The patient is isolative and withdrawn. Coping skills are noted to be still poor. The patient has short-term as well as long-term memory deficits and gets easily confused towards the end of the day. The patient has been having sundowner syndrome. The patient is currently on 12.5 mg of the Seroquel and has been able to tolerate. No side effects to the medications are noted at this time. ASSESSMENT: The patient is still paranoid. PLAN: To continue the patient with the supportive therapy and followup. JOB# [id number]
--- NOTE | 2017-10-31 18:48 | Internal Medicine Prog Note ---
Internal Medicine Subjective - Subjective Patient seen and examined:: with staff, chart reviewed Patient is:: awake, verbal, interactive Patient Complaints of:: cough Per staff patient has:: no adverse event, no episodes of fall, tolerating meds Internal Medicine Objective - Results Result Diagrams: 10/26/17 20:30 10/26/17 20:30 Recent Labs: Laboratory Last Values WBC 6.4 Th/cmm (4.8-10.8) 10/26/17 20:30 RBC 4.96 Mil/cmm (3.80-5.20) 10/26/17 20:30 Hgb 11.4 gm/dL (12-16) L 10/26/17 20:30 Hct 35.5 % (41.0-60) L 10/26/17 20:30 MCV 71.4 fl (81-100) L 10/26/17 20:30 MCH 23.0 pg (27.0-31.0) L 10/26/17 20:30 MCHC Differential 32.1 pg (28.0-36.0) 10/26/17 20:30 RDW 16.1 % (11.5-20.0) 10/26/17 20:30 Plt Count 216 Th/cmm (150-400) 10/26/17 20:30 MPV 8.6 fl 10/26/17 20:30 Band Neutrophils % 1 % (0-10) 10/26/17 20:30 Neutrophils (Manual) 78 % (40-80) 10/26/17 20:30 Lymphocytes 19 % (20-50) L 10/26/17 20:30 Monocytes 2 % (2-10) 10/26/17 20:30 Eosinophils 0 % (0-5) 10/26/17 20:30 Basophils 0 % (0-3) 10/26/17 20:30 Microcytosis 3+ 10/26/17 20:30 Sodium 139 mEq/L (136-145) 10/26/17 20:30 Potassium 4.0 mEq/L (3.5-5.1) 10/26/17 20:30 Chloride 106 mEq/L (98-107) 10/26/17 20:30 Carbon Dioxide 24.8 mEq/L (21.0-31.0) 10/26/17 20:30 Anion Gap 12.2 (7.0-16.0) 10/26/17 20:30 BUN 27 mg/dL (7-25) H 10/26/17 20:30 Creatinine 1.3 mg/dL (0.6-1.2) H 10/26/17 20:30 Est GFR ( Amer) TNP 10/26/17 20:30 Est GFR (Non-Af Amer) TNP 10/26/17 20:30 BUN/Creatinine Ratio 20.8 10/26/17 20:30 Glucose 134 mg/dL (70-105) H 10/26/17 20:30 Hemoglobin A1c % 6.7 % (4.0-6.0) H 10/26/17 20:30 Calcium 9.1 mg/dL (8.6-10.3) 10/26/17 20:30 Total Bilirubin 0.5 mg/dL (0.3-1.0) 10/26/17 20:30 AST 17 U/L (13-39) 10/26/17 20:30 ALT 14 U/L (7-52) 10/26/17 20:30 Alkaline Phosphatase 80 U/L (34-104) 10/26/17 20:30 Total Protein 6.0 gm/dL (6.0-8.3) 10/26/17 20:30 Albumin 3.7 gm/dL (3.7-5.3) 10/26/17 20:30 Globulin 2.3 gm/dL 10/26/17 20:30 Albumin/Globulin Ratio 1.6 (1.0-1.8) 10/26/17 20:30 Triglycerides 64 mg/dL (<150) 10/26/17 20:30 Cholesterol 93 mg/dL (<200) 10/26/17 20:30 LDL Cholesterol Direct 39 mg/dL (75-193) L 10/26/17 20:30 HDL Cholesterol 40 mg/dL (23-92) 10/26/17 20:30 TSH 0.30 uIU/ml (0.34-5.60) L 10/26/17 20:30 Salicylates < 25.0 mg/L (30.0-100.0) L 10/26/17 20:30 Urine Opiates Screen NEGATIVE (NEGATIVE) 10/26/17 21:00 Urine Methadone Screen NEGATIVE (NEGATIVE) 10/26/17 21:00 Acetaminophen < 10.0 ug/mL (10.0-30.0) L 10/26/17 20:30 Ur Barbiturates Screen NEGATIVE (NEGATIVE) 10/26/17 21:00 Ur Tricyclics Screen NEGATIVE (NEGATIVE) 10/26/17 21:00 Ur Phencyclidine Scrn NEGATIVE (NEGATIVE) 10/26/17 21:00 Amphetamines Screen NEGATIVE (NEGATIVE) 10/26/17 21:00 U Methamphetamines Scrn NEGATIVE (NEGATIVE) 10/26/17 21:00 U Benzodiazepines Scrn NEGATIVE (NEGATIVE) 10/26/17 21:00 U Cocaine Metab Screen NEGATIVE (NEGATIVE) 10/26/17 21:00 U Cannabinoids Screen NEGATIVE (NEGATIVE) 10/26/17 21:00 Ethyl Alcohol < 10 mg/dL (0-10) 10/26/17 20:30 RPR NONREACTIVE (NONREACTIVE) 10/26/17 20:30 - Physical Exam Vitals and I&O: Vital Signs Temp 98.5 F 10/31/17 18:31 Pulse 84 10/31/17 18:31 Resp 18 10/31/17 18:31 BP 95/52 10/31/17 18:31 Pulse Ox 97 10/31/17 18:31 Intake & Output 10/30/17 10/31/17 10/31/17 18:59 06:59 18:59 Intake Total 8871 [id number] Balance 2481 148 1208 Intake: Oral 2340 895 1649 Other: # Voids 2 2 # Bowel Movements 0 1 Active Medications: Current Medications Acetaminophen (Tylenol) 650 mg PO Q4HR PRN PRN Reason: Mild Pain / Temp above 100 Stop: 12/26/17 00:12 Last Admin: 10/30/17 21:19 Dose: 650 mg Acetaminophen (Tylenol) 325 mg PO Q4H PRN PRN Reason: MILD PAIN Stop: 12/26/17 12:39 Last Admin: 10/29/17 21:11 Dose: 325 mg Atorvastatin Calcium (Lipitor) 20 mg PO HS [facility] Stop: 12/26/17 20:59 Last Admin: 10/30/17 21:17 Dose: 20 mg Ferrous Sulfate (Iron) 325 mg PO DAILY [facility] Stop: 12/27/17 08:59 Last Admin: 10/31/17 09:17 Dose: 325 mg Furosemide (Lasix) 20 mg PO DAILY [facility] Stop: 12/27/17 08:59 Last Admin: 10/31/17 09:17 Dose: 20 mg Levothyroxine Sodium (Synthroid) 0.1 mg PO QDAC [facility] Stop: 12/27/17 07:29 Last Admin: 10/31/17 06:30 Dose: 0.1 mg Lorazepam (Ativan) 0.5 mg PO Q4H PRN; Protocol PRN Reason: Anxiety Stop: 12/26/17 00:12 Losartan Potassium (Cozaar) 100 mg PO DAILY [facility] Stop: 12/27/17 08:59 Last Admin: 10/31/17 09:18 Dose: Not Given Magnesium Hydroxide (Milk Of Magnesia) 30 ml PO DAILY [facility] Stop: 12/27/17 08:59 Last Admin: 10/31/17 09:18 Dose: 30 ml Magnesium Oxide (Mag-Oxide) 400 mg PO DAILY [facility] Stop: 12/27/17 08:59 Last Admin: 10/31/17 09:18 Dose: 400 mg Pantoprazole Sodium (Protonix) 40 mg PO QDAC [facility] Stop: 12/27/17 07:29 Last Admin: 10/31/17 06:30 Dose: 40 mg Potassium Chloride (Klor-Con) 10 meq PO DAILY [facility] Stop: 12/30/17 18:45 Quetiapine Fumarate (Seroquel) 12.5 mg PO HS [facility] PRN Reason: Protocol Stop: 12/27/17 20:59 Last Admin: 10/30/17 21:18 Dose: 12.5 mg Rivaroxaban (Xarelto) 10 mg PO DAILY [facility] Stop: 12/27/17 08:59 Last Admin: 10/31/17 09:17 Dose: 10 mg Zolpidem Tartrate (Ambien) 5 mg PO HS PRN PRN Reason: Insomnia Stop: 12/26/17 00:12 General: alert, vegetative state HEENT: NC/AT, PERRLA Neck: Supple Lungs: CTAB Cardiovascular: RRR, Normal S1, Normal S2, without murmur Abdomen: soft, globular, non-distended, positive bowel sound Extremities: edema, excoriation Neurological: no change, alert Internal Medicine Assmt/Plan - Assessment Assessment: agitation hypothyroid chf dyslipidemia - Plan Plan: hydrate patient monitor i+o fall precautions continue current plan of care - Plan Plan: monitor swelling, fluid overload dw rn and pt
[2017-10-31] MEDS: Atorvastatin Calcium 10 MG TAB PO SCH (20:55)
[2017-11-01] MEDS: Pantoprazole 40 mg EC Tab PO SCH (06:36)
[2017-11-01] MEDS: Levothyroxine 0.1 Mg Tab PO SCH (06:36)
[2017-11-01] MEDS: Magnesium Hydroxide (MOM) 30 mL UDC PO SCH (09:41)
[2017-11-01] MEDS: Ferrous Sulfate 325 MG TAB PO SCH (09:41)
[2017-11-01] MEDS: Multivitamin w/ Minerals Tab PO SCH (09:41)
[2017-11-01] MEDS: Potassium Chloride 10 mEq ER Tab PO SCH (09:42)
--- NOTE | 2017-11-01 13:53 | Internal Medicine Prog Note ---
Internal Medicine Subjective - Subjective Patient seen and examined:: with staff, chart reviewed Patient is:: awake, verbal, interactive Patient Complaints of:: cough Per staff patient has:: no adverse event, no episodes of fall, tolerating meds Internal Medicine Objective - Results Result Diagrams: 10/26/17 20:30 10/26/17 20:30 Recent Labs: Laboratory Last Values WBC 6.4 Th/cmm (4.8-10.8) 10/26/17 20:30 RBC 4.96 Mil/cmm (3.80-5.20) 10/26/17 20:30 Hgb 11.4 gm/dL (12-16) L 10/26/17 20:30 Hct 35.5 % (41.0-60) L 10/26/17 20:30 MCV 71.4 fl (81-100) L 10/26/17 20:30 MCH 23.0 pg (27.0-31.0) L 10/26/17 20:30 MCHC Differential 32.1 pg (28.0-36.0) 10/26/17 20:30 RDW 16.1 % (11.5-20.0) 10/26/17 20:30 Plt Count 216 Th/cmm (150-400) 10/26/17 20:30 MPV 8.6 fl 10/26/17 20:30 Band Neutrophils % 1 % (0-10) 10/26/17 20:30 Neutrophils (Manual) 78 % (40-80) 10/26/17 20:30 Lymphocytes 19 % (20-50) L 10/26/17 20:30 Monocytes 2 % (2-10) 10/26/17 20:30 Eosinophils 0 % (0-5) 10/26/17 20:30 Basophils 0 % (0-3) 10/26/17 20:30 Microcytosis 3+ 10/26/17 20:30 Sodium 139 mEq/L (136-145) 10/26/17 20:30 Potassium 4.0 mEq/L (3.5-5.1) 10/26/17 20:30 Chloride 106 mEq/L (98-107) 10/26/17 20:30 Carbon Dioxide 24.8 mEq/L (21.0-31.0) 10/26/17 20:30 Anion Gap 12.2 (7.0-16.0) 10/26/17 20:30 BUN 27 mg/dL (7-25) H 10/26/17 20:30 Creatinine 1.3 mg/dL (0.6-1.2) H 10/26/17 20:30 Est GFR ( Amer) TNP 10/26/17 20:30 Est GFR (Non-Af Amer) TNP 10/26/17 20:30 BUN/Creatinine Ratio 20.8 10/26/17 20:30 Glucose 134 mg/dL (70-105) H 10/26/17 20:30 Hemoglobin A1c % 6.7 % (4.0-6.0) H 10/26/17 20:30 Calcium 9.1 mg/dL (8.6-10.3) 10/26/17 20:30 Total Bilirubin 0.5 mg/dL (0.3-1.0) 10/26/17 20:30 AST 17 U/L (13-39) 10/26/17 20:30 ALT 14 U/L (7-52) 10/26/17 20:30 Alkaline Phosphatase 80 U/L (34-104) 10/26/17 20:30 Total Protein 6.0 gm/dL (6.0-8.3) 10/26/17 20:30 Albumin 3.7 gm/dL (3.7-5.3) 10/26/17 20:30 Globulin 2.3 gm/dL 10/26/17 20:30 Albumin/Globulin Ratio 1.6 (1.0-1.8) 10/26/17 20:30 Triglycerides 64 mg/dL (<150) 10/26/17 20:30 Cholesterol 93 mg/dL (<200) 10/26/17 20:30 LDL Cholesterol Direct 39 mg/dL (75-193) L 10/26/17 20:30 HDL Cholesterol 40 mg/dL (23-92) 10/26/17 20:30 TSH 0.30 uIU/ml (0.34-5.60) L 10/26/17 20:30 Salicylates < 25.0 mg/L (30.0-100.0) L 10/26/17 20:30 Urine Opiates Screen NEGATIVE (NEGATIVE) 10/26/17 21:00 Urine Methadone Screen NEGATIVE (NEGATIVE) 10/26/17 21:00 Acetaminophen < 10.0 ug/mL (10.0-30.0) L 10/26/17 20:30 Ur Barbiturates Screen NEGATIVE (NEGATIVE) 10/26/17 21:00 Ur Tricyclics Screen NEGATIVE (NEGATIVE) 10/26/17 21:00 Ur Phencyclidine Scrn NEGATIVE (NEGATIVE) 10/26/17 21:00 Amphetamines Screen NEGATIVE (NEGATIVE) 10/26/17 21:00 U Methamphetamines Scrn NEGATIVE (NEGATIVE) 10/26/17 21:00 U Benzodiazepines Scrn NEGATIVE (NEGATIVE) 10/26/17 21:00 U Cocaine Metab Screen NEGATIVE (NEGATIVE) 10/26/17 21:00 U Cannabinoids Screen NEGATIVE (NEGATIVE) 10/26/17 21:00 Ethyl Alcohol < 10 mg/dL (0-10) 10/26/17 20:30 RPR NONREACTIVE (NONREACTIVE) 10/26/17 20:30 - Physical Exam Vitals and I&O: Vital Signs Temp 98.3 F 11/01/17 06:47 Pulse 63 11/01/17 13:45 Resp 20 11/01/17 13:45 BP 123/62 11/01/17 09:42 Pulse Ox 97 11/01/17 06:47 Intake & Output 10/31/17 11/01/17 11/01/17 18:59 06:59 18:59 Intake Total 1200 480 Balance 1200 480 Intake: Oral 1200 480 Other: # Voids 1 # Bowel Movements 1 Stool Characteristics Soft Soft Formed Formed Active Medications: Current Medications Acetaminophen (Tylenol) 650 mg PO Q4HR PRN PRN Reason: Mild Pain / Temp above 100 Stop: 12/26/17 00:12 Last Admin: 10/31/17 20:54 Dose: 650 mg Acetaminophen (Tylenol) 325 mg PO Q4H PRN PRN Reason: MILD PAIN Stop: 12/26/17 12:39 Last Admin: 10/29/17 21:11 Dose: 325 mg Atorvastatin Calcium (Lipitor) 20 mg PO HS BEVERLY Stop: 12/26/17 20:59 Last Admin: 10/31/17 20:55 Dose: 20 mg Ferrous Sulfate (Iron) 325 mg PO DAILY BEVERLY Stop: 12/27/17 08:59 Last Admin: 11/01/17 09:41 Dose: 325 mg Furosemide (Lasix) 20 mg PO DAILY BEVERLY Stop: 12/27/17 08:59 Last Admin: 11/01/17 09:41 Dose: 20 mg Levothyroxine Sodium (Synthroid) 0.1 mg PO QDAC BEVERLY Stop: 12/27/17 07:29 Last Admin: 11/01/17 06:36 Dose: 0.1 mg Lorazepam (Ativan) 0.5 mg PO Q4H PRN; Protocol PRN Reason: Anxiety Stop: 12/26/17 00:12 Losartan Potassium (Cozaar) 100 mg PO DAILY BEVERLY Stop: 12/27/17 08:59 Last Admin: 11/01/17 09:42 Dose: 100 mg Magnesium Hydroxide (Milk Of Magnesia) 30 ml PO DAILY BEVERLY Stop: 12/27/17 08:59 Last Admin: 11/01/17 09:41 Dose: 30 ml Magnesium Oxide (Mag-Oxide) 400 mg PO DAILY BEVERLY Stop: 12/27/17 08:59 Last Admin: 11/01/17 09:41 Dose: 400 mg Pantoprazole Sodium (Protonix) 40 mg PO QDAC BEVERLY Stop: 12/27/17 07:29 Last Admin: 11/01/17 06:36 Dose: 40 mg Potassium Chloride (Klor-Con) 10 meq PO DAILY BEVERLY Stop: 12/30/17 18:45 Last Admin: 11/01/17 09:42 Dose: 10 meq Quetiapine Fumarate (Seroquel) 12.5 mg PO HS BEVERLY PRN Reason: Protocol Stop: 12/27/17 20:59 Last Admin: 10/31/17 20:53 Dose: 12.5 mg Rivaroxaban (Xarelto) 10 mg PO DAILY BEVERLY Stop: 12/27/17 08:59 Last Admin: 11/01/17 09:42 Dose: 10 mg Zolpidem Tartrate (Ambien) 5 mg PO HS PRN PRN Reason: Insomnia Stop: 12/26/17 00:12 General: alert, vegetative state HEENT: NC/AT, PERRLA Neck: Supple Lungs: CTAB Cardiovascular: RRR, Normal S1, Normal S2, without murmur Abdomen: soft, globular, non-distended, positive bowel sound Extremities: edema, excoriation Neurological: no change, alert Internal Medicine Assmt/Plan - Assessment Assessment: agitation hypothyroid chf dyslipidemia - Plan Plan: hydrate patient monitor i+o fall precautions continue current plan of care - Plan Plan: monitor swelling, fluid overload dw rn and pt Nutritional Asmnt/Malnutr-PDOC - Dietary Evaluation Malnutrition Findings (Please click <Entered> for more info): Nutritional Asmnt/Malnutrition Start: 11/01/17 11: 00 Text: Status: Active Freq: Document 11/01/17 11:00 [email or web address] (Rec: 11/01/17 11:18 [email or web address]- [email or web address]) Nutritional Asmnt/Malnutrition Patient General Information Nutritional Screening Moderate Risk Diagnosis Psyhchosis NOS Pertinent Medical Hx/Surgical Hx CHF, dyslipidemia, hypothyroid , pulmonary embolism Current Diet Order/ Nutrition Support Mechanical soft, chopped Pertinent Medications lipitor, iron, lasix, synthroid, cozaar, MOM, mag- oxide, protonix, Klor Pertinent Labs (10/26) BUN 27, Cr 1.3 Nutritional Hx/Data Height 1.7 m Height (Calculated Centimeters) 170.2 Current Weight (lbs) 74.843 kg Weight (Calculated Kilograms) 74.8 Weight (Calculated Grams) 13124.7 [place] Body Weight 135 % [place] Body Weight 122 Body Mass Index (BMI) 25.8 Recent Weight Change No Weight Status Overweight GI Symptoms GI Symptoms None Last BM 10/31 x 1 Difficult in: None Food Allergies No Cultural/Ethnic/Judaism Belief None indicated Skin Integrity/Comment: Shaquille 15, itnact Current %PO Good (75-100%) Estimated Nutritional Goals BEE in Kcals: Using Current wt Calories/Kcals/Kg 75kg CBW Kcals Calculated 8624-9899 kcal/day (22-27 kcal /kg) Protein: Using Current wt Protein g/kg: (1 gm/kg) Protein Calculated 75gm/day Fluid: ml 4771-1852 ml/day (1 ml/kcal) Nutritional Problem 1. Problem Problem No nutrition diagnosis at this time Intervention/Recommendation Comments 1. Continue TONIO, mechanical soft chopped diet as tolerated by patietn. Expected Outcomes/Goals Expected Outcomes/Goals Orak intake to meet >75% of nutrient needs, weight stable or trends toward ideal body weight, nutrition related labs normalize, skin integrity remains intact
[2017-11-01] MEDS: Atorvastatin Calcium 10 MG TAB PO SCH (21:45)
--- NOTE | 2017-11-02 04:41 | Progress Notes ---
DATE: 11/01/2017 SUBJECTIVE: Staff was spoken to. The patient is interviewed. Mood is noted to be less irritable. Affect is appropriate. The patient is still isolative and withdrawn. The patient continues to be having a depressive episode and the patient is encouraged to ____ and participating in the groups. The patient is currently on 12.5 mg of the Seroquel and has been able to tolerate the medications. No side effects to the medications are noted. The patient gets easily agitated and confused at around 3:00 p.m. ASSESSMENT: The patient is still paranoid. PLAN: To continue the patient with the supportive therapy and followup. JOB# [id number]
[2017-11-02] MEDS: Levothyroxine 0.1 Mg Tab PO SCH (06:31)
[2017-11-02] MEDS: Pantoprazole 40 mg EC Tab PO SCH (06:31)
[2017-11-02] MEDS: Potassium Chloride 10 mEq ER Tab PO SCH (09:18)
[2017-11-02] MEDS: Magnesium Hydroxide (MOM) 30 mL UDC PO SCH (09:18)
[2017-11-02] MEDS: Ferrous Sulfate 325 MG TAB PO SCH (09:19)
[2017-11-02] MEDS: Multivitamin w/ Minerals Tab PO SCH (09:19)
--- NOTE | 2017-11-02 10:58 | Internal Medicine Prog Note ---
Internal Medicine Subjective - Subjective Service Date: 11/02/17 Patient is:: awake, verbal, interactive Patient Complaints of:: cough Per staff patient has:: no adverse event, no episodes of fall, tolerating meds Internal Medicine Objective - Results Result Diagrams: 10/26/17 20:30 10/26/17 20:30 Recent Labs: Laboratory Last Values WBC 6.4 Th/cmm (4.8-10.8) 10/26/17 20:30 RBC 4.96 Mil/cmm (3.80-5.20) 10/26/17 20:30 Hgb 11.4 gm/dL (12-16) L 10/26/17 20:30 Hct 35.5 % (41.0-60) L 10/26/17 20:30 MCV 71.4 fl (81-100) L 10/26/17 20:30 MCH 23.0 pg (27.0-31.0) L 10/26/17 20:30 MCHC Differential 32.1 pg (28.0-36.0) 10/26/17 20:30 RDW 16.1 % (11.5-20.0) 10/26/17 20:30 Plt Count 216 Th/cmm (150-400) 10/26/17 20:30 MPV 8.6 fl 10/26/17 20:30 Band Neutrophils % 1 % (0-10) 10/26/17 20:30 Neutrophils (Manual) 78 % (40-80) 10/26/17 20:30 Lymphocytes 19 % (20-50) L 10/26/17 20:30 Monocytes 2 % (2-10) 10/26/17 20:30 Eosinophils 0 % (0-5) 10/26/17 20:30 Basophils 0 % (0-3) 10/26/17 20:30 Microcytosis 3+ 10/26/17 20:30 Sodium 139 mEq/L (136-145) 10/26/17 20:30 Potassium 4.0 mEq/L (3.5-5.1) 10/26/17 20:30 Chloride 106 mEq/L (98-107) 10/26/17 20:30 Carbon Dioxide 24.8 mEq/L (21.0-31.0) 10/26/17 20:30 Anion Gap 12.2 (7.0-16.0) 10/26/17 20:30 BUN 27 mg/dL (7-25) H 10/26/17 20:30 Creatinine 1.3 mg/dL (0.6-1.2) H 10/26/17 20:30 Est GFR ( Amer) TNP 10/26/17 20:30 Est GFR (Non-Af Amer) TNP 10/26/17 20:30 BUN/Creatinine Ratio 20.8 10/26/17 20:30 Glucose 134 mg/dL (70-105) H 10/26/17 20:30 Hemoglobin A1c % 6.7 % (4.0-6.0) H 10/26/17 20:30 Calcium 9.1 mg/dL (8.6-10.3) 10/26/17 20:30 Total Bilirubin 0.5 mg/dL (0.3-1.0) 10/26/17 20:30 AST 17 U/L (13-39) 10/26/17 20:30 ALT 14 U/L (7-52) 10/26/17 20:30 Alkaline Phosphatase 80 U/L (34-104) 10/26/17 20:30 Total Protein 6.0 gm/dL (6.0-8.3) 10/26/17 20:30 Albumin 3.7 gm/dL (3.7-5.3) 10/26/17 20:30 Globulin 2.3 gm/dL 10/26/17 20:30 Albumin/Globulin Ratio 1.6 (1.0-1.8) 10/26/17 20:30 Triglycerides 64 mg/dL (<150) 10/26/17 20:30 Cholesterol 93 mg/dL (<200) 10/26/17 20:30 LDL Cholesterol Direct 39 mg/dL (75-193) L 10/26/17 20:30 HDL Cholesterol 40 mg/dL (23-92) 10/26/17 20:30 TSH 0.30 uIU/ml (0.34-5.60) L 10/26/17 20:30 Salicylates < 25.0 mg/L (30.0-100.0) L 10/26/17 20:30 Urine Opiates Screen NEGATIVE (NEGATIVE) 10/26/17 21:00 Urine Methadone Screen NEGATIVE (NEGATIVE) 10/26/17 21:00 Acetaminophen < 10.0 ug/mL (10.0-30.0) L 10/26/17 20:30 Ur Barbiturates Screen NEGATIVE (NEGATIVE) 10/26/17 21:00 Ur Tricyclics Screen NEGATIVE (NEGATIVE) 10/26/17 21:00 Ur Phencyclidine Scrn NEGATIVE (NEGATIVE) 10/26/17 21:00 Amphetamines Screen NEGATIVE (NEGATIVE) 10/26/17 21:00 U Methamphetamines Scrn NEGATIVE (NEGATIVE) 10/26/17 21:00 U Benzodiazepines Scrn NEGATIVE (NEGATIVE) 10/26/17 21:00 U Cocaine Metab Screen NEGATIVE (NEGATIVE) 10/26/17 21:00 U Cannabinoids Screen NEGATIVE (NEGATIVE) 10/26/17 21:00 Ethyl Alcohol < 10 mg/dL (0-10) 10/26/17 20:30 RPR NONREACTIVE (NONREACTIVE) 10/26/17 20:30 - Physical Exam Vitals and I&O: Vital Signs Temp 98 F 11/02/17 06:47 Pulse 67 11/02/17 09:18 Resp 20 11/02/17 06:47 BP 117/61 11/02/17 09:18 Pulse Ox 96 11/02/17 06:47 Intake & Output 11/01/17 11/02/17 11/02/17 18:59 06:59 18:59 Intake Total 950 240 Balance 950 240 Weight (lbs) 165 lb Intake: Oral 950 240 Other: # Voids 4 3 # Bowel Movements 1 0 Stool Characteristics Soft Soft Formed Formed Weight Source Bedscale Active Medications: Current Medications Acetaminophen (Tylenol) 650 mg PO Q4HR PRN PRN Reason: Mild Pain / Temp above 100 Stop: 12/26/17 00:12 Last Admin: 10/31/17 20:54 Dose: 650 mg Acetaminophen (Tylenol) 325 mg PO Q4H PRN PRN Reason: MILD PAIN Stop: 12/26/17 12:39 Last Admin: 10/29/17 21:11 Dose: 325 mg Atorvastatin Calcium (Lipitor) 20 mg PO HS BEVERLY Stop: 12/26/17 20:59 Last Admin: 11/01/17 21:45 Dose: 20 mg Ferrous Sulfate (Iron) 325 mg PO DAILY BEVERLY Stop: 12/27/17 08:59 Last Admin: 11/02/17 09:19 Dose: 325 mg Furosemide (Lasix) 20 mg PO DAILY BEVERLY Stop: 12/27/17 08:59 Last Admin: 11/02/17 09:18 Dose: 20 mg Levothyroxine Sodium (Synthroid) 0.1 mg PO QDAC BEVERLY Stop: 12/27/17 07:29 Last Admin: 11/02/17 06:31 Dose: 0.1 mg Lorazepam (Ativan) 0.5 mg PO Q4H PRN; Protocol PRN Reason: Anxiety Stop: 12/26/17 00:12 Losartan Potassium (Cozaar) 100 mg PO DAILY BEVERLY Stop: 12/27/17 08:59 Last Admin: 11/02/17 09:18 Dose: 100 mg Magnesium Hydroxide (Milk Of Magnesia) 30 ml PO DAILY BEVERLY Stop: 12/27/17 08:59 Last Admin: 11/02/17 09:18 Dose: 30 ml Magnesium Oxide (Mag-Oxide) 400 mg PO DAILY BEVERLY Stop: 12/27/17 08:59 Last Admin: 11/02/17 09:19 Dose: 400 mg Pantoprazole Sodium (Protonix) 40 mg PO QDAC BEVERLY Stop: 12/27/17 07:29 Last Admin: 11/02/17 06:31 Dose: 40 mg Potassium Chloride (Klor-Con) 10 meq PO DAILY BEVERLY Stop: 12/30/17 18:45 Last Admin: 11/02/17 09:18 Dose: 10 meq Quetiapine Fumarate (Seroquel) 12.5 mg PO HS BEVERLY PRN Reason: Protocol Stop: 12/27/17 20:59 Last Admin: 11/01/17 21:48 Dose: 12.5 mg Rivaroxaban (Xarelto) 10 mg PO DAILY BEVERLY Stop: 12/27/17 08:59 Last Admin: 11/02/17 09:19 Dose: 10 mg Zolpidem Tartrate (Ambien) 5 mg PO HS PRN PRN Reason: Insomnia Stop: 12/26/17 00:12 General: alert, vegetative state HEENT: NC/AT, PERRLA Neck: Supple Lungs: CTAB Cardiovascular: RRR, Normal S1, Normal S2, without murmur Abdomen: soft, globular, non-distended, positive bowel sound Extremities: edema, excoriation Neurological: no change, alert Internal Medicine Assmt/Plan - Assessment Assessment: acute dehydration agitation hypothyroid chf dyslipidemia - Plan Plan: hydrate patient monitor i+o fall precautions continue current plan of care Nutritional Asmnt/Malnutr-PDOC - Dietary Evaluation Malnutrition Findings (Please click <Entered> for more info): Nutritional Asmnt/Malnutrition Start: 11/01/17 11: 00 Text: Status: Complete Freq: Document 11/01/17 11:00 MMULHERN (Rec: 11/01/17 11:18 [email or web address] MITCH- [email or web address]) Nutritional Asmnt/Malnutrition Patient General Information Nutritional Screening Moderate Risk Diagnosis Psyhchosis NOS Pertinent Medical Hx/Surgical Hx CHF, dyslipidemia, hypothyroid , pulmonary embolism Subjective Information Patient in day room at time of visit. Current Diet Order/ Nutrition Support Mechanical soft, chopped Patient / S.O Not Indicated Pertinent Medications lipitor, iron, lasix, synthroid, cozaar, MOM, mag- oxide, protonix, Klor Pertinent Labs (10/26) BUN 27, Cr 1.3 Nutritional Hx/Data Height 5 ft 7 in Height (Calculated Centimeters) 170.2 Current Weight (lbs) 165 lb Weight (Calculated Kilograms) 74.8 Weight (Calculated Grams) 94938.7 [place] Body Weight 135 % [place] Body Weight 122 Body Mass Index (BMI) 25.8 Recent Weight Change No Weight Status Overweight GI Symptoms GI Symptoms None Last BM 10/31 x 1 Difficult in: None Food Allergies No Cultural/Ethnic/Yarsanism Belief None indicated Skin Integrity/Comment: Shaquille 15, itnact Current %PO Good (75-100%) Estimated Nutritional Goals BEE in Kcals: Using Current wt Calories/Kcals/Kg 75kg CBW Kcals Calculated 2332-1870 kcal/day (22-27 kcal /kg) Protein: Using Current wt Protein g/kg: (1 gm/kg) Protein Calculated 75gm/day Fluid: ml 8878-9444 ml/day (1 ml/kcal) Nutritional Problem 1. Problem Problem No nutrition diagnosis at this time Intervention/Recommendation Comments 1. Continue TONIO, mechanical soft chopped diet as tolerated by patient. Expected Outcomes/Goals Expected Outcomes/Goals Orak intake to meet >75% of nutrient needs, weight stable or trends toward ideal body weight, nutrition related labs normalize, skin integrity remains intact F/U MR 11/04-
[2017-11-02] MEDS: Atorvastatin Calcium 10 MG TAB PO SCH (20:45)
--- NOTE | 2017-11-03 03:20 | Progress Notes ---
DATE: 11/02/2017 SUBJECTIVE: Staff was spoken to. The patient is interviewed. Mood is noted to be anxious. Affect is constricted. The patient is isolative and withdrawn. The patient's coping skills are noted to be still poor. The patient has been isolative and withdrawn, participation in the groups is noted to be very minimal. The patient wants to be there in the bed most of the time. PLAN: The patient is currently on 12.5 mg of the Seroquel and is going to be increased to 25 mg. The patient is going to be followed up with the supportive therapy. The patient is not ready to be discharged to a lower level of care in view of her paranoia and agitation. JOB# [id number]
[2017-11-03] MEDS: Pantoprazole 40 mg EC Tab PO SCH (06:52)
[2017-11-03] MEDS: Levothyroxine 0.1 Mg Tab PO SCH (06:53)
[2017-11-03] MEDS: Ferrous Sulfate 325 MG TAB PO SCH (09:02)
[2017-11-03] MEDS: Potassium Chloride 10 mEq ER Tab PO SCH (09:02)
[2017-11-03] MEDS: Multivitamin w/ Minerals Tab PO SCH (09:03)
[2017-11-03] MEDS: Magnesium Hydroxide (MOM) 30 mL UDC PO SCH (09:03)
--- NOTE | 2017-11-03 13:37 | Internal Medicine Prog Note ---
Internal Medicine Subjective - Subjective Service Date: 11/03/17 Patient is:: awake, verbal, interactive Patient Complaints of:: cough Per staff patient has:: no adverse event, no episodes of fall, tolerating meds Internal Medicine Objective - Results Result Diagrams: 10/26/17 20:30 10/26/17 20:30 Recent Labs: Laboratory Last Values WBC 6.4 Th/cmm (4.8-10.8) 10/26/17 20:30 RBC 4.96 Mil/cmm (3.80-5.20) 10/26/17 20:30 Hgb 11.4 gm/dL (12-16) L 10/26/17 20:30 Hct 35.5 % (41.0-60) L 10/26/17 20:30 MCV 71.4 fl (81-100) L 10/26/17 20:30 MCH 23.0 pg (27.0-31.0) L 10/26/17 20:30 MCHC Differential 32.1 pg (28.0-36.0) 10/26/17 20:30 RDW 16.1 % (11.5-20.0) 10/26/17 20:30 Plt Count 216 Th/cmm (150-400) 10/26/17 20:30 MPV 8.6 fl 10/26/17 20:30 Band Neutrophils % 1 % (0-10) 10/26/17 20:30 Neutrophils (Manual) 78 % (40-80) 10/26/17 20:30 Lymphocytes 19 % (20-50) L 10/26/17 20:30 Monocytes 2 % (2-10) 10/26/17 20:30 Eosinophils 0 % (0-5) 10/26/17 20:30 Basophils 0 % (0-3) 10/26/17 20:30 Microcytosis 3+ 10/26/17 20:30 Sodium 139 mEq/L (136-145) 10/26/17 20:30 Potassium 4.0 mEq/L (3.5-5.1) 10/26/17 20:30 Chloride 106 mEq/L (98-107) 10/26/17 20:30 Carbon Dioxide 24.8 mEq/L (21.0-31.0) 10/26/17 20:30 Anion Gap 12.2 (7.0-16.0) 10/26/17 20:30 BUN 27 mg/dL (7-25) H 10/26/17 20:30 Creatinine 1.3 mg/dL (0.6-1.2) H 10/26/17 20:30 Est GFR ( Amer) TNP 10/26/17 20:30 Est GFR (Non-Af Amer) TNP 10/26/17 20:30 BUN/Creatinine Ratio 20.8 10/26/17 20:30 Glucose 134 mg/dL (70-105) H 10/26/17 20:30 Hemoglobin A1c % 6.7 % (4.0-6.0) H 10/26/17 20:30 Calcium 9.1 mg/dL (8.6-10.3) 10/26/17 20:30 Total Bilirubin 0.5 mg/dL (0.3-1.0) 10/26/17 20:30 AST 17 U/L (13-39) 10/26/17 20:30 ALT 14 U/L (7-52) 10/26/17 20:30 Alkaline Phosphatase 80 U/L (34-104) 10/26/17 20:30 Total Protein 6.0 gm/dL (6.0-8.3) 10/26/17 20:30 Albumin 3.7 gm/dL (3.7-5.3) 10/26/17 20:30 Globulin 2.3 gm/dL 10/26/17 20:30 Albumin/Globulin Ratio 1.6 (1.0-1.8) 10/26/17 20:30 Triglycerides 64 mg/dL (<150) 10/26/17 20:30 Cholesterol 93 mg/dL (<200) 10/26/17 20:30 LDL Cholesterol Direct 39 mg/dL (75-193) L 10/26/17 20:30 HDL Cholesterol 40 mg/dL (23-92) 10/26/17 20:30 TSH 0.30 uIU/ml (0.34-5.60) L 10/26/17 20:30 Salicylates < 25.0 mg/L (30.0-100.0) L 10/26/17 20:30 Urine Opiates Screen NEGATIVE (NEGATIVE) 10/26/17 21:00 Urine Methadone Screen NEGATIVE (NEGATIVE) 10/26/17 21:00 Acetaminophen < 10.0 ug/mL (10.0-30.0) L 10/26/17 20:30 Ur Barbiturates Screen NEGATIVE (NEGATIVE) 10/26/17 21:00 Ur Tricyclics Screen NEGATIVE (NEGATIVE) 10/26/17 21:00 Ur Phencyclidine Scrn NEGATIVE (NEGATIVE) 10/26/17 21:00 Amphetamines Screen NEGATIVE (NEGATIVE) 10/26/17 21:00 U Methamphetamines Scrn NEGATIVE (NEGATIVE) 10/26/17 21:00 U Benzodiazepines Scrn NEGATIVE (NEGATIVE) 10/26/17 21:00 U Cocaine Metab Screen NEGATIVE (NEGATIVE) 10/26/17 21:00 U Cannabinoids Screen NEGATIVE (NEGATIVE) 10/26/17 21:00 Ethyl Alcohol < 10 mg/dL (0-10) 10/26/17 20:30 RPR NONREACTIVE (NONREACTIVE) 10/26/17 20:30 - Physical Exam Vitals and I&O: Vital Signs Temp 97.8 F 11/03/17 06:24 Pulse 64 11/03/17 10:14 Resp 20 11/03/17 10:14 BP 115/65 11/03/17 09:03 Pulse Ox 95 11/03/17 06:24 Intake & Output 11/02/17 11/03/17 11/03/17 18:59 06:59 18:59 Intake Total 1400 300 Balance 1400 300 Intake: Oral 1400 300 Other: # Voids 4 2 # Bowel Movements 1 0 Active Medications: Current Medications Acetaminophen (Tylenol) 650 mg PO Q4HR PRN PRN Reason: Mild Pain / Temp above 100 Stop: 12/26/17 00:12 Last Admin: 10/31/17 20:54 Dose: 650 mg Acetaminophen (Tylenol) 325 mg PO Q4H PRN PRN Reason: MILD PAIN Stop: 12/26/17 12:39 Last Admin: 10/29/17 21:11 Dose: 325 mg Atorvastatin Calcium (Lipitor) 20 mg PO HS BEVERLY Stop: 12/26/17 20:59 Last Admin: 11/02/17 20:45 Dose: 20 mg Escitalopram Oxalate (Lexapro) 5 mg PO DAILY B[facility]LY PRN Reason: Protocol Stop: 01/03/18 08:59 Ferrous Sulfate (Iron) 325 mg PO DAILY B[facility]LY Stop: 12/27/17 08:59 Last Admin: 11/03/17 09:02 Dose: 325 mg Furosemide (Lasix) 20 mg PO DAILY B[facility] Stop: 12/27/17 08:59 Last Admin: 11/03/17 09:02 Dose: 20 mg Levothyroxine Sodium (Synthroid) 0.1 mg PO QDAC B[facility] Stop: 12/27/17 07:29 Last Admin: 11/03/17 06:53 Dose: 0.1 mg Lorazepam (Ativan) 0.5 mg PO Q4H PRN; Protocol PRN Reason: Anxiety Stop: 12/26/17 00:12 Losartan Potassium (Cozaar) 100 mg PO DAILY B[facility]LY Stop: 12/27/17 08:59 Last Admin: 11/03/17 09:03 Dose: 100 mg Magnesium Hydroxide (Milk Of Magnesia) 30 ml PO DAILY B[facility] Stop: 12/27/17 08:59 Last Admin: 11/03/17 09:03 Dose: 30 ml Magnesium Oxide (Mag-Oxide) 400 mg PO DAILY B[facility]LY Stop: 12/27/17 08:59 Last Admin: 11/03/17 09:02 Dose: 400 mg Pantoprazole Sodium (Protonix) 40 mg PO QDAC [facility] Stop: 12/27/17 07:29 Last Admin: 11/03/17 06:52 Dose: 40 mg Potassium Chloride (Klor-Con) 10 meq PO DAILY BEVERLY Stop: 12/30/17 18:45 Last Admin: 11/03/17 09:02 Dose: 10 meq Quetiapine Fumarate (Seroquel) 25 mg PO HS BEVERLY PRN Reason: Protocol Stop: 01/02/18 20:59 Rivaroxaban (Xarelto) 10 mg PO DAILY B[facility] Stop: 12/27/17 08:59 Last Admin: 11/03/17 09:02 Dose: 10 mg Zolpidem Tartrate (Ambien) 5 mg PO HS PRN PRN Reason: Insomnia Stop: 12/26/17 00:12 Last Admin: 11/02/17 20:45 Dose: 5 mg General: alert, vegetative state HEENT: NC/AT, PERRLA Neck: Supple Lungs: CTAB Cardiovascular: RRR, Normal S1, Normal S2, without murmur Abdomen: soft, globular, non-distended, positive bowel sound Extremities: edema, excoriation Neurological: no change, alert Internal Medicine Assmt/Plan - Assessment Assessment: acute dehydration agitation hypothyroid chf dyslipidemia - Plan Plan: hydrate patient monitor i+o fall precautions continue current plan of care Nutritional Asmnt/Malnutr-PDOC - Dietary Evaluation Malnutrition Findings (Please click <Entered> for more info): Nutritional Asmnt/Malnutrition Start: 11/01/17 11: 00 Text: Status: Complete Freq: Document 11/01/17 11:00 [email or web address] (Rec: 11/01/17 11:18 [email or web address]) Nutritional Asmnt/Malnutrition Patient General Information Nutritional Screening Moderate Risk Diagnosis Psyhchosis NOS Pertinent Medical Hx/Surgical Hx CHF, dyslipidemia, hypothyroid , pulmonary embolism Subjective Information Patient in day room at time of visit. Current Diet Order/ Nutrition Support Mechanical soft, chopped Patient / S.O Not Indicated Pertinent Medications lipitor, iron, lasix, synthroid, cozaar, MOM, mag- oxide, protonix, Klor Pertinent Labs (10/26) BUN 27, Cr 1.3 Nutritional Hx/Data Height 5 ft 7 in Height (Calculated Centimeters) 170.2 Current Weight (lbs) 165 lb Weight (Calculated Kilograms) 74.8 Weight (Calculated Grams) 47710.7 [place] Body Weight 135 % [place] Body Weight 122 Body Mass Index (BMI) 25.8 Recent Weight Change No Weight Status Overweight GI Symptoms GI Symptoms None Last BM 10/31 x 1 Difficult in: None Food Allergies No Cultural/Ethnic/Uatsdin Belief None indicated Skin Integrity/Comment: Shaquille 15, itnact Current %PO Good (75-100%) Estimated Nutritional Goals BEE in Kcals: Using Current wt Calories/Kcals/Kg 75kg CBW Kcals Calculated 9337-5906 kcal/day (22-27 kcal /kg) Protein: Using Current wt Protein g/kg: (1 gm/kg) Protein Calculated 75gm/day Fluid: ml 1028-0287 ml/day (1 ml/kcal) Nutritional Problem 1. Problem Problem No nutrition diagnosis at this time Intervention/Recommendation Comments 1. Continue TONIO, mechanical soft chopped diet as tolerated by patient. Expected Outcomes/Goals Expected Outcomes/Goals Orak intake to meet >75% of nutrient needs, weight stable or trends toward ideal body weight, nutrition related labs normalize, skin integrity remains intact F/U MR 11/04-
--- NOTE | 2017-11-03 14:20 | Progress Notes ---
DATE: 11/03/2017 SUBJECTIVE: Staff was spoken to. The patient is interviewed. Mood is noted to be depressed. The patient is isolative and withdrawn. Coping skills are noted to be very poor. Sleep and appetite are also noted to be very poor. The patient has been having difficult time to cope with the stress. The patient is currently on 25 mg of the Seroquel and has been able to tolerate the medication. Sleep is noted to be fair, but mood is noted to be slightly depressed and the patient has been persistently presenting with the depressed mood. PLAN: The patient is going to be ordered a low dose of the Lexapro today to address the issue of the depression and the patient is going to be followed up with the supportive therapy. [facility]# [id number]
[2017-11-03] MEDS: Atorvastatin Calcium 10 MG TAB PO SCH (21:01)
[2017-11-04] MEDS: Levothyroxine 0.1 Mg Tab PO SCH (06:40)
[2017-11-04] MEDS: Pantoprazole 40 mg EC Tab PO SCH (06:40)
[2017-11-04] MEDS: Magnesium Hydroxide (MOM) 30 mL UDC PO SCH (08:57)
[2017-11-04] MEDS: Multivitamin w/ Minerals Tab PO SCH (08:58)
[2017-11-04] MEDS: Ferrous Sulfate 325 MG TAB PO SCH (08:58)
[2017-11-04] MEDS ORDERED: Escitalopram Oxalate 5 mg Tab PO SCH ×2 (09:00→18:47)
[2017-11-04] MEDS: Potassium Chloride 10 mEq ER Tab PO SCH (09:45)
--- NOTE | 2017-11-04 12:39 | Internal Medicine Prog Note ---
Internal Medicine Subjective - Subjective Service Date: 11/04/17 Patient is:: awake, verbal, interactive Patient Complaints of:: cough Per staff patient has:: no adverse event, no episodes of fall, tolerating meds Internal Medicine Objective - Results Result Diagrams: 10/26/17 20:30 10/26/17 20:30 Recent Labs: Laboratory Last Values WBC 6.4 Th/cmm (4.8-10.8) 10/26/17 20:30 RBC 4.96 Mil/cmm (3.80-5.20) 10/26/17 20:30 Hgb 11.4 gm/dL (12-16) L 10/26/17 20:30 Hct 35.5 % (41.0-60) L 10/26/17 20:30 MCV 71.4 fl (81-100) L 10/26/17 20:30 MCH 23.0 pg (27.0-31.0) L 10/26/17 20:30 MCHC Differential 32.1 pg (28.0-36.0) 10/26/17 20:30 RDW 16.1 % (11.5-20.0) 10/26/17 20:30 Plt Count 216 Th/cmm (150-400) 10/26/17 20:30 MPV 8.6 fl 10/26/17 20:30 Band Neutrophils % 1 % (0-10) 10/26/17 20:30 Neutrophils (Manual) 78 % (40-80) 10/26/17 20:30 Lymphocytes 19 % (20-50) L 10/26/17 20:30 Monocytes 2 % (2-10) 10/26/17 20:30 Eosinophils 0 % (0-5) 10/26/17 20:30 Basophils 0 % (0-3) 10/26/17 20:30 Microcytosis 3+ 10/26/17 20:30 Sodium 139 mEq/L (136-145) 10/26/17 20:30 Potassium 4.0 mEq/L (3.5-5.1) 10/26/17 20:30 Chloride 106 mEq/L (98-107) 10/26/17 20:30 Carbon Dioxide 24.8 mEq/L (21.0-31.0) 10/26/17 20:30 Anion Gap 12.2 (7.0-16.0) 10/26/17 20:30 BUN 27 mg/dL (7-25) H 10/26/17 20:30 Creatinine 1.3 mg/dL (0.6-1.2) H 10/26/17 20:30 Est GFR ( Amer) TNP 10/26/17 20:30 Est GFR (Non-Af Amer) TNP 10/26/17 20:30 BUN/Creatinine Ratio 20.8 10/26/17 20:30 Glucose 134 mg/dL (70-105) H 10/26/17 20:30 Hemoglobin A1c % 6.7 % (4.0-6.0) H 10/26/17 20:30 Calcium 9.1 mg/dL (8.6-10.3) 10/26/17 20:30 Total Bilirubin 0.5 mg/dL (0.3-1.0) 10/26/17 20:30 AST 17 U/L (13-39) 10/26/17 20:30 ALT 14 U/L (7-52) 10/26/17 20:30 Alkaline Phosphatase 80 U/L (34-104) 10/26/17 20:30 Total Protein 6.0 gm/dL (6.0-8.3) 10/26/17 20:30 Albumin 3.7 gm/dL (3.7-5.3) 10/26/17 20:30 Globulin 2.3 gm/dL 10/26/17 20:30 Albumin/Globulin Ratio 1.6 (1.0-1.8) 10/26/17 20:30 Triglycerides 64 mg/dL (<150) 10/26/17 20:30 Cholesterol 93 mg/dL (<200) 10/26/17 20:30 LDL Cholesterol Direct 39 mg/dL (75-193) L 10/26/17 20:30 HDL Cholesterol 40 mg/dL (23-92) 10/26/17 20:30 TSH 0.30 uIU/ml (0.34-5.60) L 10/26/17 20:30 Salicylates < 25.0 mg/L (30.0-100.0) L 10/26/17 20:30 Urine Opiates Screen NEGATIVE (NEGATIVE) 10/26/17 21:00 Urine Methadone Screen NEGATIVE (NEGATIVE) 10/26/17 21:00 Acetaminophen < 10.0 ug/mL (10.0-30.0) L 10/26/17 20:30 Ur Barbiturates Screen NEGATIVE (NEGATIVE) 10/26/17 21:00 Ur Tricyclics Screen NEGATIVE (NEGATIVE) 10/26/17 21:00 Ur Phencyclidine Scrn NEGATIVE (NEGATIVE) 10/26/17 21:00 Amphetamines Screen NEGATIVE (NEGATIVE) 10/26/17 21:00 U Methamphetamines Scrn NEGATIVE (NEGATIVE) 10/26/17 21:00 U Benzodiazepines Scrn NEGATIVE (NEGATIVE) 10/26/17 21:00 U Cocaine Metab Screen NEGATIVE (NEGATIVE) 10/26/17 21:00 U Cannabinoids Screen NEGATIVE (NEGATIVE) 10/26/17 21:00 Ethyl Alcohol < 10 mg/dL (0-10) 10/26/17 20:30 RPR NONREACTIVE (NONREACTIVE) 10/26/17 20:30 - Physical Exam Vitals and I&O: Vital Signs Temp 98.3 F 11/04/17 06:27 Pulse 74 11/04/17 08:58 Resp 20 11/04/17 08:00 BP 113/76 11/04/17 08:58 Pulse Ox 97 11/04/17 06:27 Intake & Output 11/03/17 11/04/17 11/04/17 18:59 06:59 18:59 Intake Total 1200 120 Balance 1200 120 Intake: Oral 1200 120 Other: # Voids 3 3 # Bowel Movements 1 Active Medications: Current Medications Acetaminophen (Tylenol) 650 mg PO Q4HR PRN PRN Reason: Mild Pain / Temp above 100 Stop: 12/26/17 00:12 Last Admin: 10/31/17 20:54 Dose: 650 mg Acetaminophen (Tylenol) 325 mg PO Q4H PRN PRN Reason: MILD PAIN Stop: 12/26/17 12:39 Last Admin: 10/29/17 21:11 Dose: 325 mg Atorvastatin Calcium (Lipitor) 20 mg PO [facility] Stop: 12/26/17 20:59 Last Admin: 11/03/17 21:01 Dose: 20 mg Escitalopram Oxalate (Lexapro) 5 mg PO DAILY BEVERLY PRN Reason: Protocol Stop: 01/03/18 08:59 Last Admin: 11/04/17 08:57 Dose: 5 mg Ferrous Sulfate (Iron) 325 mg PO DAILY B[facility]LY Stop: 12/27/17 08:59 Last Admin: 11/04/17 08:58 Dose: 325 mg Furosemide (Lasix) 20 mg PO DAILY B[facility] Stop: 12/27/17 08:59 Last Admin: 11/04/17 08:57 Dose: 20 mg Levothyroxine Sodium (Synthroid) 0.1 mg PO QDAC B[facility] Stop: 12/27/17 07:29 Last Admin: 11/04/17 06:40 Dose: 0.1 mg Lorazepam (Ativan) 0.5 mg PO Q4H PRN; Protocol PRN Reason: Anxiety Stop: 12/26/17 00:12 Losartan Potassium (Cozaar) 100 mg PO DAILY B[facility] Stop: 12/27/17 08:59 Last Admin: 11/04/17 08:58 Dose: 100 mg Magnesium Hydroxide (Milk Of Magnesia) 30 ml PO DAILY BEVERLY Stop: 12/27/17 08:59 Last Admin: 11/04/17 08:57 Dose: 30 ml Magnesium Oxide (Mag-Oxide) 400 mg PO DAILY B[facility]LY Stop: 12/27/17 08:59 Last Admin: 11/04/17 08:58 Dose: 400 mg Pantoprazole Sodium (Protonix) 40 mg PO QDAC B[facility] Stop: 12/27/17 07:29 Last Admin: 11/04/17 06:40 Dose: 40 mg Potassium Chloride (Klor-Con) 10 meq PO DAILY BEVERLY Stop: 12/30/17 18:45 Last Admin: 11/04/17 09:45 Dose: 10 meq Quetiapine Fumarate (Seroquel) 25 mg PO HS BEVERLY PRN Reason: Protocol Stop: 01/02/18 20:59 Last Admin: 11/03/17 21:01 Dose: 25 mg Rivaroxaban (Xarelto) 10 mg PO DAILY B[facility] Stop: 12/27/17 08:59 Last Admin: 11/04/17 09:45 Dose: 10 mg Zolpidem Tartrate (Ambien) 5 mg PO HS PRN PRN Reason: Insomnia Stop: 12/26/17 00:12 Last Admin: 11/03/17 21:01 Dose: 5 mg General: alert, vegetative state HEENT: NC/AT, PERRLA Neck: Supple Lungs: CTAB Cardiovascular: RRR, Normal S1, Normal S2, without murmur Abdomen: soft, globular, non-distended, positive bowel sound Extremities: edema, excoriation Neurological: no change, alert Internal Medicine Assmt/Plan - Assessment Assessment: acute dehydration agitation hypothyroid chf dyslipidemia - Plan Plan: hydrate patient monitor i+o fall precautions continue current plan of care Nutritional Asmnt/Malnutr-PDOC - Dietary Evaluation Malnutrition Findings (Please click <Entered> for more info): Nutritional Asmnt/Malnutrition Start: 11/01/17 11: 00 Text: Status: Complete Freq: Document 11/01/17 11:00 MMULHERN (Rec: 11/01/17 11:18 MMULHERN MITCH- FN) Nutritional Asmnt/Malnutrition Patient General Information Nutritional Screening Moderate Risk Diagnosis Psyhchosis NOS Pertinent Medical Hx/Surgical Hx CHF, dyslipidemia, hypothyroid , pulmonary embolism Subjective Information Patient in day room at time of visit. Current Diet Order/ Nutrition Support Mechanical soft, chopped Patient / S.O Not Indicated Pertinent Medications lipitor, iron, lasix, synthroid, cozaar, MOM, mag- oxide, protonix, Klor Pertinent Labs (10/26) BUN 27, Cr 1.3 Nutritional Hx/Data Height 5 ft 7 in Height (Calculated Centimeters) 170.2 Current Weight (lbs) 165 lb Weight (Calculated Kilograms) 74.8 Weight (Calculated Grams) 37042.7 [place] Body Weight 135 % [place] Body Weight 122 Body Mass Index (BMI) 25.8 Recent Weight Change No Weight Status Overweight GI Symptoms GI Symptoms None Last BM 10/31 x 1 Difficult in: None Food Allergies No Cultural/Ethnic/[place] Belief None indicated Skin Integrity/Comment: Shaquille 15, itnact Current %PO Good (75-100%) Estimated Nutritional Goals BEE in Kcals: Using Current wt Calories/Kcals/Kg 75kg CBW Kcals Calculated 5887-8008 kcal/day (22-27 kcal /kg) Protein: Using Current wt Protein g/kg: (1 gm/kg) Protein Calculated 75gm/day Fluid: ml 1171-2025 ml/day (1 ml/kcal) Nutritional Problem 1. Problem Problem No nutrition diagnosis at this time Intervention/Recommendation Comments 1. Continue TONIO, mechanical soft chopped diet as tolerated by patient. Expected Outcomes/Goals Expected Outcomes/Goals Orak intake to meet >75% of nutrient needs, weight stable or trends toward ideal body weight, nutrition related labs normalize, skin integrity remains intact F/U MR 11/04-
[2017-11-04] MEDS: Atorvastatin Calcium 10 MG TAB PO SCH (21:29)
--- NOTE | 2017-11-05 03:03 | Progress Notes ---
DATE: 11/04/2017 SUBJECTIVE: Staff was spoken to. The patient is interviewed. Mood is noted to be irritable. Affect is constricted. The patient has been less irritable. Coping skills are noted to be still poor. The patient is isolative and withdrawn. The patient is able to tolerate the antidepressant medications. No side effects to the medications are noted. The patient is not presenting with any threats to harm self. ASSESSMENT: The patient is still depressed. PLAN: To change the Lexapro to 10 mg and follow the patient with the supportive therapy. JOB# [id number]
[2017-11-05] MEDS: Levothyroxine 0.1 Mg Tab PO SCH (06:31)
[2017-11-05] MEDS: Pantoprazole 40 mg EC Tab PO SCH (06:32)
[2017-11-05] MEDS: Magnesium Hydroxide (MOM) 30 mL UDC PO SCH (08:54)
[2017-11-05] MEDS: Multivitamin w/ Minerals Tab PO SCH (08:56)
[2017-11-05] MEDS: Ferrous Sulfate 325 MG TAB PO SCH (08:56)
[2017-11-05] MEDS: Potassium Chloride 10 mEq ER Tab PO SCH (08:56)
--- NOTE | 2017-11-05 14:06 | Internal Medicine Prog Note ---
Internal Medicine Subjective - Subjective Service Date: 11/05/17 Patient is:: awake, verbal, interactive Patient Complaints of:: cough Per staff patient has:: no adverse event, no episodes of fall, tolerating meds Internal Medicine Objective - Results Result Diagrams: 10/26/17 20:30 10/26/17 20:30 Recent Labs: Laboratory Last Values WBC 6.4 Th/cmm (4.8-10.8) 10/26/17 20:30 RBC 4.96 Mil/cmm (3.80-5.20) 10/26/17 20:30 Hgb 11.4 gm/dL (12-16) L 10/26/17 20:30 Hct 35.5 % (41.0-60) L 10/26/17 20:30 MCV 71.4 fl (81-100) L 10/26/17 20:30 MCH 23.0 pg (27.0-31.0) L 10/26/17 20:30 MCHC Differential 32.1 pg (28.0-36.0) 10/26/17 20:30 RDW 16.1 % (11.5-20.0) 10/26/17 20:30 Plt Count 216 Th/cmm (150-400) 10/26/17 20:30 MPV 8.6 fl 10/26/17 20:30 Band Neutrophils % 1 % (0-10) 10/26/17 20:30 Neutrophils (Manual) 78 % (40-80) 10/26/17 20:30 Lymphocytes 19 % (20-50) L 10/26/17 20:30 Monocytes 2 % (2-10) 10/26/17 20:30 Eosinophils 0 % (0-5) 10/26/17 20:30 Basophils 0 % (0-3) 10/26/17 20:30 Microcytosis 3+ 10/26/17 20:30 Sodium 139 mEq/L (136-145) 10/26/17 20:30 Potassium 4.0 mEq/L (3.5-5.1) 10/26/17 20:30 Chloride 106 mEq/L (98-107) 10/26/17 20:30 Carbon Dioxide 24.8 mEq/L (21.0-31.0) 10/26/17 20:30 Anion Gap 12.2 (7.0-16.0) 10/26/17 20:30 BUN 27 mg/dL (7-25) H 10/26/17 20:30 Creatinine 1.3 mg/dL (0.6-1.2) H 10/26/17 20:30 Est GFR ( Amer) TNP 10/26/17 20:30 Est GFR (Non-Af Amer) TNP 10/26/17 20:30 BUN/Creatinine Ratio 20.8 10/26/17 20:30 Glucose 134 mg/dL (70-105) H 10/26/17 20:30 Hemoglobin A1c % 6.7 % (4.0-6.0) H 10/26/17 20:30 Calcium 9.1 mg/dL (8.6-10.3) 10/26/17 20:30 Total Bilirubin 0.5 mg/dL (0.3-1.0) 10/26/17 20:30 AST 17 U/L (13-39) 10/26/17 20:30 ALT 14 U/L (7-52) 10/26/17 20:30 Alkaline Phosphatase 80 U/L (34-104) 10/26/17 20:30 Total Protein 6.0 gm/dL (6.0-8.3) 10/26/17 20:30 Albumin 3.7 gm/dL (3.7-5.3) 10/26/17 20:30 Globulin 2.3 gm/dL 10/26/17 20:30 Albumin/Globulin Ratio 1.6 (1.0-1.8) 10/26/17 20:30 Triglycerides 64 mg/dL (<150) 10/26/17 20:30 Cholesterol 93 mg/dL (<200) 10/26/17 20:30 LDL Cholesterol Direct 39 mg/dL (75-193) L 10/26/17 20:30 HDL Cholesterol 40 mg/dL (23-92) 10/26/17 20:30 TSH 0.30 uIU/ml (0.34-5.60) L 10/26/17 20:30 Salicylates < 25.0 mg/L (30.0-100.0) L 10/26/17 20:30 Urine Opiates Screen NEGATIVE (NEGATIVE) 10/26/17 21:00 Urine Methadone Screen NEGATIVE (NEGATIVE) 10/26/17 21:00 Acetaminophen < 10.0 ug/mL (10.0-30.0) L 10/26/17 20:30 Ur Barbiturates Screen NEGATIVE (NEGATIVE) 10/26/17 21:00 Ur Tricyclics Screen NEGATIVE (NEGATIVE) 10/26/17 21:00 Ur Phencyclidine Scrn NEGATIVE (NEGATIVE) 10/26/17 21:00 Amphetamines Screen NEGATIVE (NEGATIVE) 10/26/17 21:00 U Methamphetamines Scrn NEGATIVE (NEGATIVE) 10/26/17 21:00 U Benzodiazepines Scrn NEGATIVE (NEGATIVE) 10/26/17 21:00 U Cocaine Metab Screen NEGATIVE (NEGATIVE) 10/26/17 21:00 U Cannabinoids Screen NEGATIVE (NEGATIVE) 10/26/17 21:00 Ethyl Alcohol < 10 mg/dL (0-10) 10/26/17 20:30 RPR NONREACTIVE (NONREACTIVE) 10/26/17 20:30 - Physical Exam Vitals and I&O: Vital Signs Temp 97.6 F 11/05/17 06:55 Pulse 68 11/05/17 08:55 Resp 19 11/05/17 06:55 BP 121/66 11/05/17 08:55 Pulse Ox 97 11/05/17 06:55 Intake & Output 11/04/17 11/05/17 11/05/17 18:59 06:59 18:59 Intake Total 900 120 Balance 900 120 Intake: Oral 900 120 Other: # Voids 3 3 # Bowel Movements 1 Active Medications: Current Medications Acetaminophen (Tylenol) 650 mg PO Q4HR PRN PRN Reason: Mild Pain / Temp above 100 Stop: 12/26/17 00:12 Last Admin: 10/31/17 20:54 Dose: 650 mg Acetaminophen (Tylenol) 325 mg PO Q4H PRN PRN Reason: MILD PAIN Stop: 12/26/17 12:39 Last Admin: 10/29/17 21:11 Dose: 325 mg Atorvastatin Calcium (Lipitor) 20 mg PO [facility] Stop: 12/26/17 20:59 Last Admin: 11/04/17 21:29 Dose: 20 mg Escitalopram Oxalate (Lexapro) 10 mg PO DAILY BEVERLY PRN Reason: Protocol Stop: 01/03/18 18:46 Last Admin: 11/05/17 08:56 Dose: 10 mg Ferrous Sulfate (Iron) 325 mg PO DAILY BEVERLY Stop: 12/27/17 08:59 Last Admin: 11/05/17 08:56 Dose: 325 mg Furosemide (Lasix) 20 mg PO DAILY B[facility] Stop: 12/27/17 08:59 Last Admin: 11/05/17 08:55 Dose: 20 mg Levothyroxine Sodium (Synthroid) 0.1 mg PO QDAC BEVERLY Stop: 12/27/17 07:29 Last Admin: 11/05/17 06:31 Dose: 0.1 mg Lorazepam (Ativan) 0.5 mg PO Q4H PRN; Protocol PRN Reason: Anxiety Stop: 12/26/17 00:12 Losartan Potassium (Cozaar) 100 mg PO DAILY BEVERLY Stop: 12/27/17 08:59 Last Admin: 11/05/17 08:55 Dose: 100 mg Magnesium Hydroxide (Milk Of Magnesia) 30 ml PO DAILY BEVERYL Stop: 12/27/17 08:59 Last Admin: 11/05/17 08:54 Dose: 30 ml Magnesium Oxide (Mag-Oxide) 400 mg PO DAILY BEVERLY Stop: 12/27/17 08:59 Last Admin: 11/05/17 08:55 Dose: 400 mg Pantoprazole Sodium (Protonix) 40 mg PO QDAC BEVERLY Stop: 12/27/17 07:29 Last Admin: 11/05/17 06:32 Dose: 40 mg Potassium Chloride (Klor-Con) 10 meq PO DAILY BEVERLY Stop: 12/30/17 18:45 Last Admin: 11/05/17 08:56 Dose: 10 meq Quetiapine Fumarate (Seroquel) 25 mg PO HS BEVERLY PRN Reason: Protocol Stop: 01/02/18 20:59 Last Admin: 11/04/17 21:30 Dose: 25 mg Rivaroxaban (Xarelto) 10 mg PO DAILY BEVERLY Stop: 12/27/17 08:59 Last Admin: 11/05/17 08:56 Dose: 10 mg Zolpidem Tartrate (Ambien) 5 mg PO HS PRN PRN Reason: Insomnia Stop: 12/26/17 00:12 Last Admin: 11/03/17 21:01 Dose: 5 mg General: alert, vegetative state HEENT: NC/AT, PERRLA Neck: Supple Lungs: CTAB Cardiovascular: RRR, Normal S1, Normal S2, without murmur Abdomen: soft, globular, non-distended, positive bowel sound Extremities: edema, excoriation Neurological: no change, alert Internal Medicine Assmt/Plan - Assessment Assessment: acute dehydration agitation hypothyroid chf dyslipidemia - Plan Plan: hydrate patient monitor i+o fall precautions continue current plan of care Nutritional Asmnt/Malnutr-PDOC - Dietary Evaluation Malnutrition Findings (Please click <Entered> for more info): Nutritional Asmnt/Malnutrition Start: 11/01/17 11: 00 Text: Status: Complete Freq: Document 11/01/17 11:00 MMULHERN (Rec: 11/01/17 11:18 MMULHERN MITCH- FN) Nutritional Asmnt/Malnutrition Patient General Information Nutritional Screening Moderate Risk Diagnosis Psyhchosis NOS Pertinent Medical Hx/Surgical Hx CHF, dyslipidemia, hypothyroid , pulmonary embolism Subjective Information Patient in day room at time of visit. Current Diet Order/ Nutrition Support Mechanical soft, chopped Patient / S.O Not Indicated Pertinent Medications lipitor, iron, lasix, synthroid, cozaar, MOM, mag- oxide, protonix, Klor Pertinent Labs (10/26) BUN 27, Cr 1.3 Nutritional Hx/Data Height 5 ft 7 in Height (Calculated Centimeters) 170.2 Current Weight (lbs) 165 lb Weight (Calculated Kilograms) 74.8 Weight (Calculated Grams) 08275.7 [place] Body Weight 135 % [place] Body Weight 122 Body Mass Index (BMI) 25.8 Recent Weight Change No Weight Status Overweight GI Symptoms GI Symptoms None Last BM 10/31 x 1 Difficult in: None Food Allergies No Cultural/Ethnic/Restorationist Belief None indicated Skin Integrity/Comment: Shaquille 15, itnact Current %PO Good (75-100%) Estimated Nutritional Goals BEE in Kcals: Using Current wt Calories/Kcals/Kg 75kg CBW Kcals Calculated 8528-2698 kcal/day (22-27 kcal /kg) Protein: Using Current wt Protein g/kg: (1 gm/kg) Protein Calculated 75gm/day Fluid: ml 9951-9888 ml/day (1 ml/kcal) Nutritional Problem 1. Problem Problem No nutrition diagnosis at this time Intervention/Recommendation Comments 1. Continue TONIO, mechanical soft chopped diet as tolerated by patient. Expected Outcomes/Goals Expected Outcomes/Goals Orak intake to meet >75% of nutrient needs, weight stable or trends toward ideal body weight, nutrition related labs normalize, skin integrity remains intact F/U MR 11/04-
--- NOTE | 2017-11-05 17:15 | Progress Notes ---
DATE: 11/05/2017 SUBJECTIVE: Staff was spoken to. The patient is interviewed. Mood is noted to be anxious. Affect is appropriate. Not suicidal or homicidal. Insight and judgment are improving. Impulse control seems to be fair. The patient has been able to verbalize the concerns rather than to act out. ASSESSMENT: The patient is stabilizing. PLAN: To discharge the patient today for followup on outpatient basis. [facility]# [id number]
[2017-11-05] MEDS: Atorvastatin Calcium 10 MG TAB PO SCH (20:42)
== END 2017-11-05 20:00 | DRG 884 ==
LOC: ER 19:03 → GERO 23:06
PROVIDERS: ADMIT Psychiatry & Neurology Psychiatry; ATTEND Psychiatry & Neurology Psychiatry
DX: F03.91 Unspecified dementia, unspecified severity, with behavioral disturbance (principal); F23 Brief psychotic disorder; E86.0 Dehydration; E03.9 Hypothyroidism, unspecified; I50.9 Heart failure, unspecified; E78.5 Hyperlipidemia, unspecified; Z86.711 Personal history of pulmonary embolism; Z88.6 Allergy status to analgesic agent; Z88.1 Allergy status to other antibiotic agents; Z88.8 Allergy status to other drugs, medicaments and biological substances; Z90.89 Acquired absence of other organs
CPT/HCPCS: 36415-UA; 80053-TC; 80061-TC; 80307; 80320-TC; 80329-TC; 83036-90; 84443-TC; 85007-TC; 85025-TC; 85027-TC; 86592-TC; 93005; G0410; Z7610

== ENCOUNTER 2018-08-27 18:12 | Inpatient (IN) | payer MEDICARE, OTHER ==
[2018-08-27 18:39] LABS: URINE SOURCE CLEAN C
[2018-08-27 18:39] LABS: % BASOPHILS 0.4 % (0.0-2.0); % EOSINOPHILS 0.8 % (0.0-5.0); % LYMPHOCYTES 21.8 % (20.0-50.0); % MONOCYTES 6.1 % (2.0-10.0); % NEUTROPHILS 70.9 % (40.0-80.0); HEMATOCRIT 40.2 % (41.0-60); LYMPHOCYTE ABSOLUTE 1.2 Th/cmm (1.5-3.0); MEAN CELL VOLUME 85.5 fl (81-100); MEAN CORPUSCULAR HEMOGLOBIN 27.8 pg (27.0-31.0); MEAN CORPUSCULAR HGB CONC 32.5 pg (28.0-36.0); MEAN PLATELET VOLUME 8.6 fl; MONOCYTE ABSOLUTE 0.3 Th/cmm (0.3-1.0); NEUTROPHILE ABSOLUTE 4.2 Th/cmm (1.8-8.0); PLATELET COUNT 160 Th/cmm (150-400); RED CELL DISTRIBUTION WIDTH 15.8 % (11.5-20.0); WHITE BLOOD COUNT 5.7 Th/cmm (4.8-10.8)
[2018-08-27 18:49] LABS: URINE BILIRUBIN NEGATIVE (NEGATIVE); URINE BLOOD NEGATIVE (NEGATIVE); URINE GLUCOSE (UA) NEGATIVE (NEGATIVE); URINE KETONE NEGATIVE (NEGATIVE); URINE LEUKOCYTE ESTERASE SMALL (NEGATIVE); URINE NITRATE NEGATIVE (NEGATIVE); URINE PH 5.5 (4.6 - 8.0); URINE PROTEIN NEGATIVE (NEGATIVE); URINE UROBILINOGEN 0.2 E.U./dL (0.2 - 1.0)
[2018-08-27 18:57] LABS: ALB/GLOB RATIO 1.8 (1.0-1.8); ALBUMIN 3.7 gm/dL (3.7-5.3); ALKALINE PHOSPHATASE 65 U/L (34-104); BILIRUBIN,TOTAL 0.6 mg/dL (0.3-1.0); BUN - UREA NITROGEN 34 mg/dL (7-25); CALCIUM SERUM 9.3 mg/dL (8.6-10.3); CARBON DIOXIDE 26.1 mEq/L (21.0-31.0); CHLORIDE 106 mEq/L (98-107); CREATININE - SERUM 1.3 mg/dL (0.6-1.2); GLUCOSE 128 mg/dL (70-105); MAGNESIUM 2.1 mg/dL (1.9-2.7); PHOSPHOROUS 2.8 mg/dL (2.5-5.0); POTASSIUM SERUM 4.1 mEq/L (3.5-5.1); SGOT 26 U/L (13-39); SGPT/ALT 27 U/L (7-52); SODIUM SERUM 140 mEq/L (136-145); TOTAL PROTEIN,SERUM 5.8 gm/dL (6.0-8.3)
[2018-08-27 19:00] LABS: URINE CLARITY HAZY (CLEAR); URINE COLOR YELLOW; URINE MICROSCOPIC INDICATED? YES; URINE RBC NONE SEEN /hpf (0-5)
[2018-08-27 19:01] LABS: URINE BACTERIA MODERATE /hpf (NONE SEEN); URINE EPITHELIAL CELLS FEW /lpf (FEW)
[2018-08-27] MEDS ORDERED: Sulfamethoxazole/TMP 800/160mg Tab PO ONE (19:08)
[2018-08-27] MEDS ORDERED: Sulfamethoxazole/TMP 800/160mg Tab ONE (19:12)
--- NOTE | 2018-08-27 19:14 | ED Physician Chart ---
ED Chief Complaint/HPI - Patient Information Date Seen:: 08/27/18 Time Seen:: 18:10 Chief Complaint:: increased depression History of Present Illness:: increased depression Allergies:: Allergies Allergy/AdvReac Type Severity Reaction Status Date / Time amoxicillin [From Augmentin] Allergy Verified 10/26/17 19:24 aspirin Allergy Verified 10/26/17 19:24 clavulanic acid Allergy Verified 10/26/17 19:24 [From Augmentin] Historian:: Patient Review:: Nurse's Note Reviewed ED Past Medical History - Past Medical History Obtainable: No Past Medical History: HTN, PUD/GERD, Other (muscle weakness) Family Medical History - Family Member Mother History Unknown: Yes ED Physical Exam - Physical Examination General/Constitutional: Awake, Well-developed, well-nourished Head: Atraumatic Eyes: Lids, conjuctiva normal, PERRL, EOMI Skin: Nl inspection, No rash, No skin lesions, No ecchymosis, Well hydrated, No lymphadenopathy ENMT: External ears, nose nl Neck: Nontender, No nuchal rigidity, No stridor Respiratory: Nl effort/Exclusion, Clear to Auscultation, No Wheeze/Rhonchi/Rales Cardio Vascular: RRR, No murmur, gallop, rubs, NL S1 S2 GI: No tenderness/rebounding/guarding, No organomegaly, No hernia, Normal BS's, Nondistended, No mass/bruits, No McBurney tenderness : No CVA tenderness Other Extremities comments:: BLE edema (stable) Neuro/Psych: Mood normal Other Neuro/Psych comments:: doesn't walk. Misc: Normal back, No paraspinal tenderness ED Labs/Radiology/EKG Results - Lab Results Results: Laboratory Tests 08/27/18 08/27/18 08/27/18 18:15 18:25 18:25 WBC 5.7 RBC 4.70 Hgb 13.0 Hct 40.2 L MCV 85.5 MCH 27.8 MCHC Differential 32.5 RDW 15.8 Plt Count 160 MPV 8.6 Neutrophils % 70.9 Lymphocytes % 21.8 Monocytes % 6.1 Eosinophils % 0.8 Basophils % 0.4 Sodium 140 Potassium 4.1 Chloride 106 Carbon Dioxide 26.1 Anion Gap 12.0 BUN 34 H Creatinine 1.3 H Est GFR ( Amer) TNP Est GFR (Non-Af Amer) TNP BUN/Creatinine Ratio 26.2 Glucose 128 H Calcium 9.3 Phosphorus 2.8 Magnesium 2.1 Total Bilirubin 0.6 AST 26 ALT 27 Alkaline Phosphatase 65 Total Protein 5.8 L Albumin 3.7 Globulin 2.1 Albumin/Globulin Ratio 1.8 Urine Source CLEAN C Urine Color YELLOW Urine Clarity HAZY Urine pH 5.5 Ur Specific Markle 1.010 Urine Protein NEGATIVE Urine Glucose (UA) NEGATIVE Urine Ketones NEGATIVE Urine Blood NEGATIVE Urine Nitrate NEGATIVE Urine Bilirubin NEGATIVE Urine Urobilinogen 0.2 Ur Leukocyte Esterase SMALL H Urine RBC NONE SEEN Urine WBC 6-10 H Ur Epithelial Cells FEW Urine Bacteria MODERATE H ED Assessment - Assessment General Assessment: PATIENT IS CLEARED FROM A MEDICAL STANDPOINT FOR THE GEROPSYCH UNIT: PATIENT HAS A URINARY TRACT INFECTION. PLEASE MAKE SURE THAT SHE IS TREATED FOR THE URINARY TRACT INFECTION AND THAT SOMEONE CHECKS THE URINE CULTURE WE SENT. ED Septic Shock - . Is Septic Shock (SBP<90, OR Lactate>4 mmol\L) present?: No ED Reassessment (Disposition) - Reassessment Reassessment:: PATIENT IS CLEARED FROM A MEDICAL STANDPOINT FOR THE GEROPSYCH UNIT: PATIENT HAS A URINARY TRACT INFECTION. PLEASE MAKE SURE THAT SHE IS TREATED FOR THE URINARY TRACT INFECTION AND THAT SOMEONE CHECKS THE URINE CULTURE WE SENT. Reassessment Condition:: Unchanged - Diagnosis Diagnosis:: Increased depression Urinary tract infection Chronic renal insufficiency PATIENT IS CLEARED FROM A MEDICAL STANDPOINT FOR THE GEROPSYCH UNIT - Patient Disposition Discharge/Transfer:: Acute Care w/in this hosp Admitted to:: [facility] Condition at Disposition:: Stable, Unchanged
[2018-08-27 22:04] VITALS: BP 127/75
[2018-08-27 23:23] LABS: CHOLESTEROL 106 mg/dL (<200); HDL -HIGH DENSITY LIPOPROTEIN 41 mg/dL (23-92); TRIGLYCERIDES 70 mg/dL (<150)
[2018-08-28] MEDS ORDERED: Magnesium Hydroxide (MOM) 30 mL UDC PO PRN (03:54)
[2018-08-28] MEDS: Levothyroxine 0.1 Mg Tab PO SCH (06:51)
[2018-08-28] MEDS: Pantoprazole 40 mg EC Tab PO SCH (06:51)
[2018-08-28] MEDS: Multivitamin w/ Minerals Tab PO SCH (08:45)
[2018-08-28] MEDS: Escitalopram Oxalate 5 mg Tab PO SCH (08:45)
[2018-08-28] MEDS: Ferrous Sulfate 325 MG TAB PO SCH (08:45)
[2018-08-28] MEDS ORDERED: Non-Formulary Item 1 EA (Amino Acids/Protein Hydrolys [Pro-Stat Sugar Free Liquid] 30 ML) PO SCH (09:00)
--- NOTE | 2018-08-28 14:43 | Psychiatric Evaluation ---
DATE OF SERVICE: 08/27/2018 IDENTIFYING DATA: The patient is an 88-year-old woman, resident of intermediate facility that is the [facility]. Information obtained by directly interviewing the patient as well as reviewing the admission papers and they are reliable. JUSTIFICATION FOR HOSPITALIZATION: The patient is admitted on a voluntary basis in view of her depression. CHIEF COMPLAINT: "I do not know, I need some help." HISTORY OF PRESENT ILLNESS: This is the second psychiatric hospitalization for this patient who was hospitalized under my care in October. The patient is reporting that she has been feeling depressed for no reason. The patient at the time of the hospitalization has been having difficult time to cope with the stress. Sleep and appetite prior to the hospitalization are reported to be poor. PAST PSYCHIATRIC HISTORY: Please refer to the above. MEDICAL HISTORY: Physical examination is requested to be done by Dr. Jackson. SUBSTANCE ABUSE HISTORY: None. LEGAL PROBLEMS: None at this time. STRENGTH AND ASSETS: The patient is motivated. MENTAL STATUS EXAMINATION: The patient is an 88-year-old woman, thin built. The patient is lying down in the bed. Coping skills are noted to be very poor. Mood is noted to be depressed. The patient is not presenting with any suicidal ideation, but feels helpless and hopeless and feels frustrated. The patient has both short-term and long-term memory deficits at this time. The patient is also stating that she is hard of hearing. The patient is alert and awake and is aware that she is in the hospital. DIAGNOSTIC IMPRESSION: AXIS I: A. Major depressive disorder, recurrent and moderate. B. Dementia and behavioral change secondary to it. AXIS II: None. AXIS III: As per Dr. Hodgson. IMMEDIATE TREATMENT PLAN: The patient is going to be observed on inpatient unit, provided with supportive psychotherapy. The patient is going to be closely monitored. I encouraged her to verbalize the concerns rather than to act out and once stabilized, the patient is going to be discharged to [facility] to be followed up on an outpatient basis. The patient is going to be continued on the low dose of the escitalopram, and then Seroquel and then followed up with the supportive therapy. JOB# [id number]
[2018-08-28] MEDS: Atorvastatin Calcium 10 MG TAB PO SCH (20:23)
[2018-08-29] MEDS: Levothyroxine 0.1 Mg Tab PO SCH (06:33)
[2018-08-29] MEDS: Pantoprazole 40 mg EC Tab PO SCH (06:33)
[2018-08-29] MEDS: Ferrous Sulfate 325 MG TAB PO SCH (09:04)
[2018-08-29] MEDS: Multivitamin w/ Minerals Tab PO SCH (09:04)
[2018-08-29] MEDS: Escitalopram Oxalate 5 mg Tab PO SCH (09:04)
[2018-08-29] MEDS: Atorvastatin Calcium 10 MG TAB PO SCH (21:17)
--- NOTE | 2018-08-29 23:15 | Progress Notes ---
DATE: 08/29/2018 SUBJECTIVE: Staff was spoken to. The patient is interviewed. Mood is noted to be irritable. Affect is constricted. The patient is stating that she came in here for the checkup of her blood pressure. The patient is getting easily frustrated. Coping skills are noted to be extremely poor. No side effects to the medications are noted at this time. ASSESSMENT: The patient is still depressed and frustrated. The patient is also having hearing problems and whatever that we are trying to tell her she is processing it in a totally different way. PLAN: To continue the patient with the supportive therapy. I encouraged the patient to verbalize the concerns rather than to act out. JOB# [id number]
[2018-08-30] MEDS: Pantoprazole 40 mg EC Tab PO SCH (06:30)
[2018-08-30] MEDS: Levothyroxine 0.1 Mg Tab PO SCH (06:30)
[2018-08-30] MEDS: Multivitamin w/ Minerals Tab PO SCH (10:38)
[2018-08-30] MEDS: Escitalopram Oxalate 5 mg Tab PO SCH (10:39)
[2018-08-30] MEDS: Ferrous Sulfate 325 MG TAB PO SCH (10:39)
--- NOTE | 2018-08-30 20:12 | Consultation ---
DATE OF CONSULTATION: 08/30/2018 REFERRING PHYSICIAN: Kieran Drummond M.D. TYPE OF CONSULTATION: Psychology. HISTORY OF PRESENT ILLNESS: The patient is an 88-year-old female. The patient is a resident of [facility]. The following is by review of the medical record and by the patient's self-report. The patient is being admitted due to increased depression. Upon interview, the patient states she does not know why she is being hospitalized and believes she is here to check her blood pressure. The staff at the patient's facility report that she is having a difficult time coping and had complained of feeling depressed and that she was unable to identify any specific reason for her depression. The patient denied any suicidal ideation, plan, or intention at the time of this clinical interview. PAST MEDICAL HISTORY: Please see history and physical by Dr. Hodgson. PAST PSYCHIATRIC HISTORY: The patient has a history of depression. The patient is under the care of a psychiatrist at her placement. The patient has a previous psychiatric hospitalization here. SUBSTANCE ABUSE HISTORY: The patient denied any history of alcohol, tobacco, or drug use. PSYCHOSOCIAL HISTORY: The patient states that she is . The patient did not answer questions about occupational or educational history or synagogue affiliation. The patient denied any history of physical or sexual abuse. She denies any current legal problems. The patient states that she does not have any family members involved in her care. MENTAL STATUS EXAMINATION: The patient appears to be her stated age although somewhat frail. Attitude is superficially cooperative. Eye contact is poor. Speech is spontaneous. Mood is depressed. Affect is mood congruent. Thought process shows to be confused. The patient is having difficulty understanding the purpose of this examination and the clinical questions. The patient may be hard of hearing. There may be receptive aphasia. This needs further evaluation. The patient denied any suicidal ideation, plan, or intention. However, the patient states that she feels helpless and hopeless. The patient denied any auditory or visual hallucinations. The patient's behavior has been redirectable. Impulse control is limited. Concentration is fair to poor. Sensorium is alert and oriented to self and place. The patient did not participate in the memory assessment. The patient did not participate in the interpretation of proverbs. Insight is poor. Judgment is compromised. DIAGNOSTIC IMPRESSION: AXIS I: 1. Major depressive disorder, recurrent, moderate. 2. Provisional diagnosis of dementia with behavioral disturbance. AXIS II: Deferred. AXIS III: Per Dr. Hodgson. TREATMENT PLAN: The patient has been seen by Dr. Drummond for psychiatric evaluation and for the management of the patient's psychotropic medications. We will provide supportive psychotherapy to include reality orientation, differentiation, and integration. We will provide motivational enhancement for the patient to become compliant and stay compliant with all aspects of her care and treatment. We will provide coping strategies for phase of life issues. We will provide cognitive behavioral therapy to reduce the patient's depression. We will encourage the patient to verbalize her concerns. We will continue to provide supportive psychotherapy throughout the patient's hospital stay. Thank you, Dr. Drummond, for this consult and the opportunity to participate in this patient's care. JOB# [id number]
[2018-08-30] MEDS: Atorvastatin Calcium 10 MG TAB PO SCH (21:34)
--- NOTE | 2018-08-31 00:37 | Progress Notes ---
DATE: 08/30/2018 SUBJECTIVE: Staff was spoken to. The patient is interviewed. Mood is noted to be irritable. Affect is constricted. Insight and judgment are noted to be still impaired. Impulse control is noted to be poor. Coping skills are also noted to be very poor. The patient has been having difficult time to cope with the stress. No side effects to the medications are noted at this time. The patient is still insisting that this is not the place for her and she needs to go back to the facility. ASSESSMENT: The patient is still depressed. PLAN: Continue the patient with the supportive therapy. I encouraged the patient to verbalize the concerns rather than to act out. JOB# [id number]
[2018-08-31] MEDS: Pantoprazole 40 mg EC Tab PO SCH (06:36)
[2018-08-31] MEDS: Levothyroxine 0.1 Mg Tab PO SCH (06:36)
[2018-08-31] MEDS: Escitalopram Oxalate 5 mg Tab PO SCH (09:10)
[2018-08-31] MEDS: Multivitamin w/ Minerals Tab PO SCH (09:11)
[2018-08-31] MEDS: Ferrous Sulfate 325 MG TAB PO SCH (09:11)
--- NOTE | 2018-08-31 13:35 | History & Physical ---
ADMIT DATE: 08/27/2018 CHIEF COMPLAINT: Admitted for inpatient unit in psych. HISTORY OF PRESENT ILLNESS: This is an 88-year-old female with history of CHF, hypertension, GERD, gait imbalance and renal insufficiency, admitted from nursing facility secondary to decompensation of her psych disorder. The patient is admitted under the service of Dr. Drummond. The patient is not a best historian. She sits in a chair and stairs blankly. PAST MEDICAL HISTORY: As mentioned in history of present illness. PAST SURGICAL HISTORY: Unable to obtain from the patient. ALLERGIES: AMOXICILLIN, ASPIRIN, CLAVULANIC ACID. MEDICATIONS: Tylenol, atorvastatin, Lexapro, Lasix, iron, Synthroid, lorazepam, losartan, multivitamins, pantoprazole, Xarelto, and Ambien. FAMILY HISTORY: Noncontributory. SOCIAL HISTORY: The patient is a correction, patient requiring 24-hour total care. REVIEW OF SYSTEMS: This is limited secondary to the patient's comatose state. We will try to obtain more detailed review of system at a later date by talking to family members. There is a niece, Sharonda Barreto, her number #[phone]. We will also try to get information from nursing staff at ____ facility in [place] as well from Dr. Jackson, who follows the patient. PHYSICAL EXAMINATION: VITAL SIGNS: Blood pressure 105/50, respirations 19, pulse 67, temperature 97.1. GENERAL: Mildly obese elderly female, appears younger. NECK: Supple. No mass. LUNGS: Equal breath sounds, otherwise clear to auscultation. HEART: Regular rate and rhythm with systolic ejection murmur. ABDOMEN: Soft, globular. EXTREMITIES: Positive excoriations, nonpitting edema. LABORATORY DATA: WBC 5.7, hemoglobin 13, platelets 116. Sodium 140, potassium 4.1, BUN 34, creatinine 1.3, blood sugar 128, total protein 5.8. Albumin 3.7. UA moderate bacteria, positive for E. coli, positive for MRSA of the nares. ASSESSMENT AND PLAN: Urinary tract infection, Escherichia coli and methicillin-resistant Staphylococcus aureus of the nares, obesity, congestive heart failure, hypertension, gastroesophageal reflux disease, gait imbalance, renal insufficiency, hypercholesterolemia, and hypothyroidism. We will provide the patient with p.o. antibiotic as well as Bactroban. We will monitor for any signs or symptoms of fluid overload. Continue on a diuretic. We will titrate the patient on antihypertensive medication. We will monitor her blood pressure closely. Continue proton pump inhibitor. Continue on anticoagulation. Continue with current care. We will follow residential solar consultant recommendations. JOB# [id number]
[2018-08-31] MEDS: Sulfamethoxazole/TMP 800/160mg Tab PO SCH (17:18)
[2018-08-31] MEDS: Atorvastatin Calcium 10 MG TAB PO SCH (21:08)
--- NOTE | 2018-09-01 04:13 | Progress Notes ---
DATE: 08/31/2018 SUBJECTIVE: Staff was spoken to. The patient is interviewed. Mood is noted to be depressed. Affect is constricted. The patient is insisting that she should be back at the facility. Insight and judgment at this time are noted to be still impaired. Impulse control seems to be limited. ASSESSMENT: The patient is still depressed and demented. PLAN: To continue the patient with the current medications and followup. JOB# [id number]
[2018-09-01] MEDS: Pantoprazole 40 mg EC Tab PO SCH (06:48)
[2018-09-01] MEDS: Levothyroxine 0.1 Mg Tab PO SCH (06:48)
[2018-09-01] MEDS: Escitalopram Oxalate 5 mg Tab PO SCH ×2 (09:00→09:28)
[2018-09-01] MEDS: Ferrous Sulfate 325 MG TAB PO SCH (09:27)
[2018-09-01] MEDS: Sulfamethoxazole/TMP 800/160mg Tab PO SCH ×2 (09:28→18:00)
[2018-09-01] MEDS: Multivitamin w/ Minerals Tab PO SCH (09:29)
--- NOTE | 2018-09-01 13:33 | Progress Notes ---
DATE: 09/01/2018 SUBJECTIVE: Staff was spoken to. The patient is interviewed. Mood is noted to be irritable. Affect is constricted. Insight and judgment at this time are noted to be still impaired. Impulse control is noted to be limited. The patient is still isolative and withdrawn. Coping skills are noted to be very poor. The patient is currently on 25 mg of the Seroquel at night time and the patient has been getting easily frustrated. No side effects to the medications are noted. In view of the depression, it is decided to start the patient on low dose of Lexapro, which is going to be given at 5 mg and followed up with the supportive therapy. ASSESSMENT: The patient is depressed and paranoid. PLAN: To continue the patient with the supportive therapy, encouraged the patient to verbalize the concerns rather than to act out. JOB# [id number]
--- NOTE | 2018-09-01 14:19 | Internal Medicine Prog Note ---
Internal Medicine Subjective - Subjective Service Date: 09/01/18 Patient seen and examined:: with staff Patient is:: awake, verbal Per staff patient has:: tolerating meds Internal Medicine Objective - Results Result Diagrams: 08/27/18 18:25 08/27/18 18:25 Recent Labs: Laboratory Last Values WBC 5.7 Th/cmm (4.8-10.8) 08/27/18 18:25 RBC 4.70 Mil/cmm (3.80-5.20) 08/27/18 18:25 Hgb 13.0 gm/dL (12-16) 08/27/18 18:25 Hct 40.2 % (41.0-60) L 08/27/18 18:25 MCV 85.5 fl (81-100) 08/27/18 18:25 MCH 27.8 pg (27.0-31.0) 08/27/18 18:25 MCHC Differential 32.5 pg (28.0-36.0) 08/27/18 18:25 RDW 15.8 % (11.5-20.0) 08/27/18 18:25 Plt Count 160 Th/cmm (150-400) 08/27/18 18:25 MPV 8.6 fl 08/27/18 18:25 Neutrophils % 70.9 % (40.0-80.0) 08/27/18 18:25 Lymphocytes % 21.8 % (20.0-50.0) 08/27/18 18:25 Monocytes % 6.1 % (2.0-10.0) 08/27/18 18:25 Eosinophils % 0.8 % (0.0-5.0) 08/27/18 18:25 Basophils % 0.4 % (0.0-2.0) 08/27/18 18:25 Sodium 140 mEq/L (136-145) 08/27/18 18:25 Potassium 4.1 mEq/L (3.5-5.1) 08/27/18 18:25 Chloride 106 mEq/L (98-107) 08/27/18 18:25 Carbon Dioxide 26.1 mEq/L (21.0-31.0) 08/27/18 18:25 Anion Gap 12.0 (7.0-16.0) 08/27/18 18:25 BUN 34 mg/dL (7-25) H 08/27/18 18:25 Creatinine 1.3 mg/dL (0.6-1.2) H 08/27/18 18:25 Est GFR ( Amer) TNP 08/27/18 18:25 Est GFR (Non-Af Amer) TNP 08/27/18 18:25 BUN/Creatinine Ratio 26.2 08/27/18 18:25 Glucose 128 mg/dL (70-105) H 08/27/18 18:25 POC Glucose 115 MG/DL (70 - 105) H 08/27/18 23:22 Calcium 9.3 mg/dL (8.6-10.3) 08/27/18 18:25 Phosphorus 2.8 mg/dL (2.5-5.0) 08/27/18 18:25 Magnesium 2.1 mg/dL (1.9-2.7) 08/27/18 18:25 Total Bilirubin 0.6 mg/dL (0.3-1.0) 08/27/18 18:25 AST 26 U/L (13-39) 08/27/18 18:25 ALT 27 U/L (7-52) 08/27/18 18:25 Alkaline Phosphatase 65 U/L (34-104) 08/27/18 18:25 Total Protein 5.8 gm/dL (6.0-8.3) L 08/27/18 18:25 Albumin 3.7 gm/dL (3.7-5.3) 08/27/18 18:25 Globulin 2.1 gm/dL 08/27/18 18:25 Albumin/Globulin Ratio 1.8 (1.0-1.8) 08/27/18 18:25 Triglycerides 70 mg/dL (<150) 08/27/18 18:25 Cholesterol 106 mg/dL (<200) 08/27/18 18:25 LDL Cholesterol Direct 55 mg/dL (75-193) L 08/27/18 18:25 HDL Cholesterol 41 mg/dL (23-92) 08/27/18 18:25 TSH 5.36 uIU/ml (0.34-5.60) 08/27/18 18:25 Urine Source CLEAN C 08/27/18 18:15 Urine Color YELLOW 08/27/18 18:15 Urine Clarity HAZY (CLEAR) 08/27/18 18:15 Urine pH 5.5 (4.6 - 8.0) 08/27/18 18:15 Ur Specific [place] 1.010 (1.005-1.030) 08/27/18 18:15 Urine Protein NEGATIVE mg/dL (NEGATIVE) 08/27/18 18:15 Urine Glucose (UA) NEGATIVE mg/dL (NEGATIVE) 08/27/18 18:15 Urine Ketones NEGATIVE mg/dL (NEGATIVE) 08/27/18 18:15 Urine Blood NEGATIVE (NEGATIVE) 08/27/18 18:15 Urine Nitrate NEGATIVE (NEGATIVE) 08/27/18 18:15 Urine Bilirubin NEGATIVE (NEGATIVE) 08/27/18 18:15 Urine Urobilinogen 0.2 E.U./dL (0.2 - 1.0) 08/27/18 18:15 Ur Leukocyte Esterase SMALL (NEGATIVE) H 08/27/18 18:15 Urine RBC NONE SEEN /hpf (0-5) 08/27/18 18:15 Urine WBC 6-10 /hpf (0-5) H 08/27/18 18:15 Ur Epithelial Cells FEW /lpf (FEW) 08/27/18 18:15 Urine Bacteria MODERATE /hpf (NONE SEEN) H 08/27/18 18:15 - Physical Exam Vitals and I&O: Vital Signs Temp 98.4 F 09/01/18 06:28 Pulse 70 09/01/18 09:27 Resp 19 09/01/18 06:28 BP 128/66 09/01/18 09:28 Pulse Ox 96 09/01/18 06:28 Intake & Output 08/31/18 09/01/18 09/01/18 18:59 06:59 18:59 Intake Total 240 Balance 240 Intake: Oral 240 Other: # Voids 3 # Bowel Movements 0 Active Medications: Current Medications Acetaminophen (Tylenol) 325 mg PO Q4H PRN PRN Reason: MILD PAIN Stop: 10/27/18 03:53 Atorvastatin Calcium (Lipitor) 20 mg PO HS [facility]; Protocol Stop: 10/27/18 20:59 Last Admin: 08/31/18 21:08 Dose: 20 mg Bisacodyl (Dulcolax 10 Mg Supp) 10 mg RC DAILY PRN PRN Reason: IF MOM INEFFECTIVE Stop: 10/27/18 03:53 Escitalopram Oxalate (Lexapro) 5 mg PO DAILY [facility]; Protocol Stop: 10/27/18 08:59 Last Admin: 09/01/18 09:28 Dose: 5 mg Escitalopram Oxalate (Lexapro) 5 mg PO DAILY [facility]; Protocol Stop: 10/31/18 08:59 Last Admin: 09/01/18 09:00 Dose: Not Given Ferrous Sulfate (Iron) 325 mg PO DAILY [facility] Stop: 10/27/18 08:59 Last Admin: 09/01/18 09:27 Dose: 325 mg Furosemide (Lasix) 20 mg PO DAILY [facility] Stop: 10/27/18 08:59 Last Admin: 09/01/18 09:28 Dose: 20 mg Levothyroxine Sodium (Synthroid) 0.1 mg PO QDAC [facility] Stop: 10/27/18 07:29 Last Admin: 09/01/18 06:48 Dose: 0.1 mg Lorazepam (Ativan) 0.5 mg PO Q4HR PRN; Protocol PRN Reason: Anxiety Stop: 09/26/18 20:29 Losartan Potassium (Cozaar) 50 mg PO DAILY [facility] Stop: 10/31/18 08:59 Last Admin: 09/01/18 09:27 Dose: 50 mg Magnesium Hydroxide (Milk Of Magnesia) 30 ml PO DAILY PRN PRN Reason: BOWEL MAINTENANCE Stop: 10/27/18 03:53 Magnesium Oxide (Mag-Oxide) 400 mg PO DAILY [facility] Stop: 10/27/18 08:59 Last Admin: 09/01/18 09:29 Dose: 400 mg Mupirocin (Bactroban Oint) 1 appl TP BID [facility] Stop: 09/05/18 16:59 Last Admin: 09/01/18 09:26 Dose: 1 appl Pantoprazole Sodium (Protonix) 40 mg PO QDAC [facility] Stop: 10/27/18 07:29 Last Admin: 09/01/18 06:48 Dose: 40 mg Quetiapine Fumarate (Seroquel) 25 mg PO HS [facility]; Protocol Stop: 10/26/18 22:59 Last Admin: 08/31/18 21:08 Dose: 25 mg Rivaroxaban (Xarelto) 10 mg PO DAILY [facility] Stop: 10/27/18 08:59 Last Admin: 09/01/18 09:28 Dose: 10 mg Trimethoprim/Sulfamethoxazole (Bactrim Ds) 1 tab PO BID [facility] Stop: 09/05/18 16:59 Last Admin: 09/01/18 09:28 Dose: 1 tab Zolpidem Tartrate (Ambien) 5 mg PO HS PRN PRN Reason: Insomnia Stop: 10/26/18 22:13 General: alert HEENT: NC/AT, PERRLA Neck: Supple Lungs: CTAB Cardiovascular: RRR, Normal S1, without murmur Extremities: excoriation Internal Medicine Assmt/Plan - Assessment Assessment: uti mrsa nares obesity chf htn gerd gait imbalance - Plan Plan: monitor i+o closely fall precautions cont bactroban and oral abx continue current plan of care Nutritional Asmnt/Malnutr-PDOC - Dietary Evaluation Malnutrition Findings (Please click <Entered> for more info): Nutritional Asmnt/Malnutrition Start: 09/01/18 13: 45 Text: Status: Complete Freq: Protocol: Document 09/01/18 13:45 SARAH (Rec: 09/01/18 14:00 SARAH [email or web address]) Nutritional Asmnt/Malnutrition Patient General Information Nutritional Screening Moderate Risk Diagnosis depression Pertinent Medical Hx/Surgical Hx HTN, PUD/GERD, muscle weakness Subjective Information Per EMR, PO intake 75-100%. Current Diet Order/ Nutrition Support [facility] soft chopped Pertinent Medications lipitor, iron, lasix, synthroid, mag-oxide, protonix , seroquel Pertinent Labs 08/27 BUN 34, Cr 1.3, glucose 128, POC 115 Nutritional Hx/Data Height 5 ft 7 in Height (Calculated Centimeters) 170.2 Current Weight (lbs) 170 lb Weight (Calculated Kilograms) 77.1 Weight (Calculated Grams) 30740.7 [place] Body Weight 135 Body Mass Index (BMI) 26.6 Weight Status Overweight GI Symptoms GI Symptoms None Last BM 08/30 Difficult in: None Skin Integrity/Comment: intact Current %PO Good (75-100%) Estimated Nutritional Goals BEE in Kcals: Using Current wt Calories/Kcals/Kg 23-27 Kcals Calculated 9004-8335 Protein: Using Current wt Protein g/k.8 monitor renal labs Protein Calculated 62 Fluid: ml 1771-2079ml (1m/kcal) Nutritional Problem 1. Problem Problem altered nutrition relate labs Etiology possible renal dysfunction Signs/Symptoms: BUN 34, Cr 1.3 Malnutrition Alert Is there a minimum of two criteria No selected? Query Text:Check all the applicable criteria. A minimum of two criteria are recommended for diagnosis of either severe or non-severe malnutrition. Malnutrition Related to Morbid Obesity Malnutrition related to morbid obesity No Intervention/Recommendation Comments 1. Continue with [facility] soft chopped diet as ordered. Consider to limit protein intake if BUN/Cr continue elevated. 2. Monitor PO intake, wt, labs and skin integrity 3. F/U as low risk in 7 days Expected Outcomes/Goals Expected Outcomes/Goals 1. PO intake to meet at least 75% of nutritional needs. 2. Wt stability, skin to remain intact, labs to approach WNL.
[2018-09-01] MEDS: Atorvastatin Calcium 10 MG TAB PO SCH (20:42)
[2018-09-02] MEDS: Levothyroxine 0.1 Mg Tab PO SCH (06:47)
[2018-09-02] MEDS: Pantoprazole 40 mg EC Tab PO SCH (06:47)
[2018-09-02] MEDS: Ferrous Sulfate 325 MG TAB PO SCH (09:40)
[2018-09-02] MEDS: Escitalopram Oxalate 5 mg Tab PO SCH ×2 (09:40)
[2018-09-02] MEDS: Multivitamin w/ Minerals Tab PO SCH (09:41)
[2018-09-02] MEDS: Sulfamethoxazole/TMP 800/160mg Tab PO SCH ×2 (09:41→17:37)
--- NOTE | 2018-09-02 12:25 | Internal Medicine Prog Note ---
Internal Medicine Subjective - Subjective Patient seen and examined:: with staff, chart reviewed Patient is:: awake, verbal, interactive Per staff patient has:: no adverse event, no episodes of fall, poor appetite, tolerating meds Internal Medicine Objective - Results Result Diagrams: 08/27/18 18:25 08/27/18 18:25 Recent Labs: Laboratory Last Values WBC 5.7 Th/cmm (4.8-10.8) 08/27/18 18:25 RBC 4.70 Mil/cmm (3.80-5.20) 08/27/18 18:25 Hgb 13.0 gm/dL (12-16) 08/27/18 18:25 Hct 40.2 % (41.0-60) L 08/27/18 18: MCV 85.5 fl (81-100) 08/27/18 18:25 MCH 27.8 pg (27.0-31.0) 08/27/18 18: MCHC Differential 32.5 pg (28.0-36.0) 08/27/18 18:25 RDW 15.8 % (11.5-20.0) 08/27/18 18:25 Plt Count 160 Th/cmm (150-400) 08/27/18 18:25 MPV 8.6 fl 08/27/18 18:25 Neutrophils % 70.9 % (40.0-80.0) 08/27/18 18:25 Lymphocytes % 21.8 % (20.0-50.0) 08/27/18 18: Monocytes % 6.1 % (2.0-10.0) 08/27/18 18:25 Eosinophils % 0.8 % (0.0-5.0) 08/27/18 18:25 Basophils % 0.4 % (0.0-2.0) 08/27/18 18:25 Sodium 140 mEq/L (136-145) 08/27/18 18:25 Potassium 4.1 mEq/L (3.5-5.1) 08/27/18 18:25 Chloride 106 mEq/L (98-107) 08/27/18 18:25 Carbon Dioxide 26.1 mEq/L (21.0-31.0) 08/27/18 18:25 Anion Gap 12.0 (7.0-16.0) 08/27/18 18:25 BUN 34 mg/dL (7-25) H 08/27/18 18:25 Creatinine 1.3 mg/dL (0.6-1.2) H 08/27/18 18:25 Est GFR ( Amer) TNP 08/27/18 18:25 Est GFR (Non-Af Amer) TNP 08/27/18 18:25 BUN/Creatinine Ratio 26.2 08/27/18 18:25 Glucose 128 mg/dL (70-105) H 08/27/18 18:25 POC Glucose 115 MG/DL (70 - 105) H 08/27/18 23:22 Calcium 9.3 mg/dL (8.6-10.3) 08/27/18 18:25 Phosphorus 2.8 mg/dL (2.5-5.0) 08/27/18 18:25 Magnesium 2.1 mg/dL (1.9-2.7) 08/27/18 18:25 Total Bilirubin 0.6 mg/dL (0.3-1.0) 08/27/18 18:25 AST 26 U/L (13-39) 08/27/18 18:25 ALT 27 U/L (7-52) 08/27/18 18:25 Alkaline Phosphatase 65 U/L (34-104) 08/27/18 18:25 Total Protein 5.8 gm/dL (6.0-8.3) L 08/27/18 18:25 Albumin 3.7 gm/dL (3.7-5.3) 08/27/18 18:25 Globulin 2.1 gm/dL 08/27/18 18:25 Albumin/Globulin Ratio 1.8 (1.0-1.8) 08/27/18 18:25 Triglycerides 70 mg/dL (<150) 08/27/18 18:25 Cholesterol 106 mg/dL (<200) 08/27/18 18:25 LDL Cholesterol Direct 55 mg/dL (75-193) L 08/27/18 18:25 HDL Cholesterol 41 mg/dL (23-92) 08/27/18 18:25 TSH 5.36 uIU/ml (0.34-5.60) 08/27/18 18:25 Urine Source CLEAN C 08/27/18 18:15 Urine Color YELLOW 08/27/18 18:15 Urine Clarity HAZY (CLEAR) 08/27/18 18:15 Urine pH 5.5 (4.6 - 8.0) 08/27/18 18:15 Ur Specific [place] 1.010 (1.005-1.030) 08/27/18 18:15 Urine Protein NEGATIVE mg/dL (NEGATIVE) 08/27/18 18:15 Urine Glucose (UA) NEGATIVE mg/dL (NEGATIVE) 08/27/18 18:15 Urine Ketones NEGATIVE mg/dL (NEGATIVE) 08/27/18 18:15 Urine Blood NEGATIVE (NEGATIVE) 08/27/18 18:15 Urine Nitrate NEGATIVE (NEGATIVE) 08/27/18 18:15 Urine Bilirubin NEGATIVE (NEGATIVE) 08/27/18 18:15 Urine Urobilinogen 0.2 E.U./dL (0.2 - 1.0) 08/27/18 18:15 Ur Leukocyte Esterase SMALL (NEGATIVE) H 08/27/18 18:15 Urine RBC NONE SEEN /hpf (0-5) 08/27/18 18:15 Urine WBC 6-10 /hpf (0-5) H 08/27/18 18:15 Ur Epithelial Cells FEW /lpf (FEW) 08/27/18 18:15 Urine Bacteria MODERATE /hpf (NONE SEEN) H 08/27/18 18:15 - Physical Exam Vitals and I&O: Vital Signs Temp 97.6 F 09/02/18 06:03 Pulse 92 09/02/18 09:46 Resp 18 09/02/18 06:03 BP 96/56 09/02/18 09:46 Pulse Ox 96 09/02/18 06:03 Intake & Output 09/01/18 09/02/18 09/02/18 18:59 06:59 18:59 Intake Total 120 Balance 120 Intake: Oral 120 Other: # Voids 2 3 # Bowel Movements 0 Active Medications: Current Medications Acetaminophen (Tylenol) 325 mg PO Q4H PRN PRN Reason: MILD PAIN Stop: 10/27/18 03:53 Atorvastatin Calcium (Lipitor) 20 mg PO HS [facility]; Protocol Stop: 10/27/18 20:59 Last Admin: 09/01/18 20:42 Dose: 20 mg Bisacodyl (Dulcolax 10 Mg Supp) 10 mg RC DAILY PRN PRN Reason: IF MOM INEFFECTIVE Stop: 10/27/18 03:53 Escitalopram Oxalate (Lexapro) 5 mg PO DAILY [facility]; Protocol Stop: 10/27/18 08:59 Last Admin: 09/02/18 09:40 Dose: 5 mg Escitalopram Oxalate (Lexapro) 5 mg PO DAILY [facility] [place]; Protocol Stop: 10/31/18 08:59 Last Admin: 09/02/18 09:40 Dose: Not Given Ferrous Sulfate (Iron) 325 mg PO DAILY [facility] [place] Stop: 10/27/18 08:59 Last Admin: 09/02/18 09:40 Dose: 325 mg Furosemide (Lasix) 20 mg PO DAILY [facility] [place] Stop: 10/27/18 08:59 Last Admin: 09/02/18 09:46 Dose: Not Given Levothyroxine Sodium (Synthroid) 0.1 mg PO QDAC [facility] [place] Stop: 10/27/18 07:29 Last Admin: 09/02/18 06:47 Dose: 0.1 mg Lorazepam (Ativan) 0.5 mg PO Q4HR PRN; Protocol PRN Reason: Anxiety Stop: 09/26/18 20:29 Losartan Potassium (Cozaar) 50 mg PO DAILY [facility] [place] Stop: 10/31/18 08:59 Last Admin: 09/02/18 09:46 Dose: Not Given Magnesium Hydroxide (Milk Of Magnesia) 30 ml PO DAILY PRN PRN Reason: BOWEL MAINTENANCE Stop: 10/27/18 03:53 Magnesium Oxide (Mag-Oxide) 400 mg PO DAILY [facility] [place] Stop: 10/27/18 08:59 Last Admin: 09/02/18 09:41 Dose: 400 mg Mupirocin (Bactroban Oint) 1 appl TP BID [facility] [place] Stop: 09/05/18 16:59 Last Admin: 09/02/18 09:38 Dose: 1 appl Pantoprazole Sodium (Protonix) 40 mg PO QDAC [facility] [place] Stop: 10/27/18 07:29 Last Admin: 09/02/18 06:47 Dose: 40 mg Quetiapine Fumarate (Seroquel) 25 mg PO HS [facility]; Protocol Stop: 10/26/18 22:59 Last Admin: 09/01/18 20:42 Dose: 25 mg Rivaroxaban (Xarelto) 10 mg PO DAILY [facility] [place] Stop: 10/27/18 08:59 Last Admin: 09/02/18 09:42 Dose: 10 mg Trimethoprim/Sulfamethoxazole (Bactrim Ds) 1 tab PO BID [facility] Stop: 09/05/18 16:59 Last Admin: 09/02/18 09:41 Dose: 1 tab Zolpidem Tartrate (Ambien) 5 mg PO HS PRN PRN Reason: Insomnia Stop: 10/26/18 22:13 General: demented HEENT: NC/AT, PERRLA Neck: Supple Lungs: CTAB Cardiovascular: RRR, Normal S1, without murmur Extremities: excoriation Neurological: no change Internal Medicine Assmt/Plan - Assessment Assessment: ASSESSMENT AND PLAN: Urinary tract infection, Escherichia coli and methicillin-resistant Staphylococcus aureus of the nares, obesity, congestive heart failure, hypertension, gastroesophageal reflux disease, gait imbalance, renal insufficiency, hypercholesterolemia, and hypothyroidism. - Plan Plan: PLAN: We will provide the patient with p.o. antibiotic as well as Bactroban. We will monitor for any signs or symptoms of fluid overload. Continue on a diuretic. We will titrate the patient on antihypertensive medication. We will monitor her blood pressure closely. Continue proton pump inhibitor. Continue on anticoagulation. Continue with current care. We will follow erp implementation consultant recommendations. Nutritional Asmnt/Malnutr-PDOC - Dietary Evaluation Malnutrition Findings (Please click <Entered> for more info): Nutritional Asmnt/Malnutrition Start: 09/01/18 13: 45 Text: Status: Complete Freq: Protocol: Document 09/01/18 13:45 LCHENG (Rec: 09/01/18 14:00 LCHENG [email or web address]) Nutritional Asmnt/Malnutrition Patient General Information Nutritional Screening Moderate Risk Diagnosis depression Pertinent Medical Hx/Surgical Hx HTN, PUD/GERD, muscle weakness Subjective Information Per EMR, PO intake 75-100%. Current Diet Order/ Nutrition Support [facility] soft chopped Pertinent Medications lipitor, iron, lasix, synthroid, mag-oxide, protonix , seroquel Pertinent Labs 08/27 BUN 34, Cr 1.3, glucose 128, POC 115 Nutritional Hx/Data Height 1.7 m Height (Calculated Centimeters) 170.2 Current Weight (lbs) 77.111 kg Weight (Calculated Kilograms) 77.1 Weight (Calculated Grams) 49108.7 [place] Body Weight 135 Body Mass Index (BMI) 26.6 Weight Status Overweight GI Symptoms GI Symptoms None Last BM 08/30 Difficult in: None Skin Integrity/Comment: intact Current %PO Good (75-100%) Estimated Nutritional Goals BEE in Kcals: Using Current wt Calories/Kcals/Kg 23-27 Kcals Calculated 2559-5970 Protein: Using Current wt Protein g/k.8 monitor renal labs Protein Calculated 62 Fluid: ml 177-2078ml (1m/kcal) Nutritional Problem 1. Problem Problem altered nutrition relate labs Etiology possible renal dysfunction Signs/Symptoms: BUN 34, Cr 1.3 Malnutrition Alert Is there a minimum of two criteria No selected? Query Text:Check all the applicable criteria. A minimum of two criteria are recommended for diagnosis of either severe or non-severe malnutrition. Malnutrition Related to Morbid Obesity Malnutrition related to morbid obesity No Intervention/Recommendation Comments 1. Continue with [facility] soft chopped diet as ordered. Consider to limit protein intake if BUN/Cr continue elevated. 2. Monitor PO intake, wt, labs and skin integrity 3. F/U as low risk in 7 days Expected Outcomes/Goals Expected Outcomes/Goals 1. PO intake to meet at least 75% of nutritional needs. 2. Wt stability, skin to remain intact, labs to approach WNL.
[2018-09-02] MEDS: Atorvastatin Calcium 10 MG TAB PO SCH (21:21)
--- NOTE | 2018-09-03 00:14 | Progress Notes ---
DATE: 09/01/2018 PSYCHOLOGY PROGRESS NOTE SUBJECTIVE: The patient is seen and interviewed. Case has been discussed with staff. The patient presents as irritable as well as difficult to redirect behaviorally and cognitively. The staff indicates the patient is not participating in the milieu therapy and continues to be withdrawn and isolative. The patient presented as easily frustrated with this conventional underwriter. The patient admits that she continues to feel depressed. The patient's level of suspiciousness is noted here as well. OBJECTIVE: Mood is irritable. Affect is constricted. Thought process shows some paranoid ideation and confusion. The patient denied any suicidal ideation, plan, or intention. The patient's behavior has been difficult to redirect. ASSESSMENT AND PLAN: The patient's behavior is still poorly redirectable and not goal oriented. The patient continues to be depressed with paranoid ideation. We provided reality orientation, differentiation, and integration. We provided remotivation for the patient to become compliant and stay compliant with all aspects of her care and treatment. We have provided coping strategies for phase of life issues and provided a safe environment with encouragement for the patient to participate in all aspects of her care and treatment. We provided coping strategies for phase of life issues as well. We will continue supportive psychotherapy throughout the patient's hospital stay. We will follow up in 2-3 days to continue the present treatment. JOB# [id number] GABRIELA
--- NOTE | 2018-09-03 01:40 | Progress Notes ---
DATE: 09/02/2018 SUBJECTIVE: The patient was seen, chart reviewed, discussed with staff. The patient has difficulty hearing and she does not see much, was asking about her blood pressure and kept repeating her questions. The patient continues to have some agitation at times, mostly at nighttime. Other episodes where she seems to be isolative, spending a lot time in rooms, and can become easily frustrated. Obviously depression is related to difficulty hearing. ASSESSMENT: The patient is still depressed, anxious, still with anxiety and anger outburst. PLAN: Continue Lexapro and Seroquel. Continue stabilization. Continue monitoring closely. JOB# [id number]
[2018-09-03] MEDS: Pantoprazole 40 mg EC Tab PO SCH (06:35)
[2018-09-03] MEDS: Levothyroxine 0.1 Mg Tab PO SCH (06:35)
[2018-09-03] MEDS: Sulfamethoxazole/TMP 800/160mg Tab PO SCH ×2 (08:33→16:57)
[2018-09-03] MEDS: Ferrous Sulfate 325 MG TAB PO SCH (08:34)
[2018-09-03] MEDS: Multivitamin w/ Minerals Tab PO SCH (08:34)
[2018-09-03] MEDS: Escitalopram Oxalate 5 mg Tab PO SCH ×3 (08:42)
--- NOTE | 2018-09-03 12:34 | Internal Medicine Prog Note ---
Internal Medicine Subjective - Subjective Patient seen and examined:: with staff, chart reviewed Patient is:: awake, verbal, interactive Per staff patient has:: no adverse event, no episodes of fall, poor appetite, tolerating meds Internal Medicine Objective - Results Result Diagrams: 08/27/18 18:25 08/27/18 18:25 Recent Labs: Laboratory Last Values WBC 5.7 Th/cmm (4.8-10.8) 08/27/18 18:25 RBC 4.70 Mil/cmm (3.80-5.20) 08/27/18 18:25 Hgb 13.0 gm/dL (12-16) 08/27/18 18:25 Hct 40.2 % (41.0-60) L 08/27/18 18: MCV 85.5 fl (81-100) 08/27/18 18:25 MCH 27.8 pg (27.0-31.0) 08/27/18 18: MCHC Differential 32.5 pg (28.0-36.0) 08/27/18 18:25 RDW 15.8 % (11.5-20.0) 08/27/18 18:25 Plt Count 160 Th/cmm (150-400) 08/27/18 18:25 MPV 8.6 fl 08/27/18 18:25 Neutrophils % 70.9 % (40.0-80.0) 08/27/18 18:25 Lymphocytes % 21.8 % (20.0-50.0) 08/27/18 18: Monocytes % 6.1 % (2.0-10.0) 08/27/18 18:25 Eosinophils % 0.8 % (0.0-5.0) 08/27/18 18:25 Basophils % 0.4 % (0.0-2.0) 08/27/18 18:25 Sodium 140 mEq/L (136-145) 08/27/18 18:25 Potassium 4.1 mEq/L (3.5-5.1) 08/27/18 18:25 Chloride 106 mEq/L (98-107) 08/27/18 18:25 Carbon Dioxide 26.1 mEq/L (21.0-31.0) 08/27/18 18:25 Anion Gap 12.0 (7.0-16.0) 08/27/18 18:25 BUN 34 mg/dL (7-25) H 08/27/18 18:25 Creatinine 1.3 mg/dL (0.6-1.2) H 08/27/18 18:25 Est GFR ( Amer) TNP 08/27/18 18:25 Est GFR (Non-Af Amer) TNP 08/27/18 18:25 BUN/Creatinine Ratio 26.2 08/27/18 18:25 Glucose 128 mg/dL (70-105) H 08/27/18 18:25 POC Glucose 115 MG/DL (70 - 105) H 08/27/18 23:22 Calcium 9.3 mg/dL (8.6-10.3) 08/27/18 18:25 Phosphorus 2.8 mg/dL (2.5-5.0) 08/27/18 18:25 Magnesium 2.1 mg/dL (1.9-2.7) 08/27/18 18:25 Total Bilirubin 0.6 mg/dL (0.3-1.0) 08/27/18 18:25 AST 26 U/L (13-39) 08/27/18 18:25 ALT 27 U/L (7-52) 08/27/18 18:25 Alkaline Phosphatase 65 U/L (34-104) 08/27/18 18:25 Total Protein 5.8 gm/dL (6.0-8.3) L 08/27/18 18:25 Albumin 3.7 gm/dL (3.7-5.3) 08/27/18 18:25 Globulin 2.1 gm/dL 08/27/18 18:25 Albumin/Globulin Ratio 1.8 (1.0-1.8) 08/27/18 18:25 Triglycerides 70 mg/dL (<150) 08/27/18 18:25 Cholesterol 106 mg/dL (<200) 08/27/18 18:25 LDL Cholesterol Direct 55 mg/dL (75-193) L 08/27/18 18:25 HDL Cholesterol 41 mg/dL (23-92) 08/27/18 18:25 TSH 5.36 uIU/ml (0.34-5.60) 08/27/18 18:25 Urine Source CLEAN C 08/27/18 18:15 Urine Color YELLOW 08/27/18 18:15 Urine Clarity HAZY (CLEAR) 08/27/18 18:15 Urine pH 5.5 (4.6 - 8.0) 08/27/18 18:15 Ur Specific [place] 1.010 (1.005-1.030) 08/27/18 18:15 Urine Protein NEGATIVE mg/dL (NEGATIVE) 08/27/18 18:15 Urine Glucose (UA) NEGATIVE mg/dL (NEGATIVE) 08/27/18 18:15 Urine Ketones NEGATIVE mg/dL (NEGATIVE) 08/27/18 18:15 Urine Blood NEGATIVE (NEGATIVE) 08/27/18 18:15 Urine Nitrate NEGATIVE (NEGATIVE) 08/27/18 18:15 Urine Bilirubin NEGATIVE (NEGATIVE) 08/27/18 18:15 Urine Urobilinogen 0.2 E.U./dL (0.2 - 1.0) 08/27/18 18:15 Ur Leukocyte Esterase SMALL (NEGATIVE) H 08/27/18 18:15 Urine RBC NONE SEEN /hpf (0-5) 08/27/18 18:15 Urine WBC 6-10 /hpf (0-5) H 08/27/18 18:15 Ur Epithelial Cells FEW /lpf (FEW) 08/27/18 18:15 Urine Bacteria MODERATE /hpf (NONE SEEN) H 08/27/18 18:15 - Physical Exam Vitals and I&O: Vital Signs Temp 97.6 F 09/03/18 06:10 Pulse 82 09/03/18 08:35 Resp 18 09/03/18 06:10 BP 105/63 09/03/18 08:35 Pulse Ox 94 09/03/18 06:10 Intake & Output 09/02/18 09/03/18 09/03/18 18:59 06:59 18:59 Intake Total 700 120 Balance 700 120 Intake: Oral 700 120 Other: # Voids 3 3 # Bowel Movements 1 Active Medications: Current Medications Acetaminophen (Tylenol) 325 mg PO Q4H PRN PRN Reason: MILD PAIN Stop: 10/27/18 03:53 Atorvastatin Calcium (Lipitor) 20 mg PO HS [facility]; Protocol Stop: 10/27/18 20:59 Last Admin: 09/02/18 21:21 Dose: 20 mg Bisacodyl (Dulcolax 10 Mg Supp) 10 mg RC DAILY PRN PRN Reason: IF MOM INEFFECTIVE Stop: 10/27/18 03:53 Escitalopram Oxalate (Lexapro) 5 mg PO DAILY [facility]; Protocol Stop: 10/27/18 08:59 Last Admin: 09/03/18 08:42 Dose: Not Given Ferrous Sulfate (Iron) 325 mg PO DAILY [facility] Stop: 10/27/18 08:59 Last Admin: 09/03/18 08:34 Dose: 325 mg Furosemide (Lasix) 20 mg PO DAILY [facility] Stop: 10/27/18 08:59 Last Admin: 09/03/18 08:34 Dose: Not Given Levothyroxine Sodium (Synthroid) 0.1 mg PO QDAC [facility] Stop: 10/27/18 07:29 Last Admin: 09/03/18 06:35 Dose: 0.1 mg Lorazepam (Ativan) 0.5 mg PO Q4HR PRN; Protocol PRN Reason: Anxiety Stop: 09/26/18 20:29 Losartan Potassium (Cozaar) 50 mg PO DAILY [facility] Stop: 10/31/18 08:59 Last Admin: 09/03/18 08:35 Dose: Not Given Magnesium Hydroxide (Milk Of Magnesia) 30 ml PO DAILY PRN PRN Reason: BOWEL MAINTENANCE Stop: 10/27/18 03:53 Magnesium Oxide (Mag-Oxide) 400 mg PO DAILY [facility] Stop: 10/27/18 08:59 Last Admin: 09/03/18 08:36 Dose: 400 mg Mupirocin (Bactroban Oint) 1 appl TP BID [facility] Stop: 09/05/18 16:59 Last Admin: 09/03/18 08:42 Dose: 1 appl Pantoprazole Sodium (Protonix) 40 mg PO QDAC [facility] Stop: 10/27/18 07:29 Last Admin: 09/03/18 06:35 Dose: 40 mg Quetiapine Fumarate (Seroquel) 25 mg PO HS [facility]; Protocol Stop: 10/26/18 22:59 Last Admin: 09/02/18 21:21 Dose: 25 mg Rivaroxaban (Xarelto) 10 mg PO DAILY [facility] Stop: 10/27/18 08:59 Last Admin: 09/03/18 08:33 Dose: 10 mg Trimethoprim/Sulfamethoxazole (Bactrim Ds) 1 tab PO BID [facility] Stop: 09/05/18 16:59 Last Admin: 09/03/18 08:33 Dose: 1 tab Zolpidem Tartrate (Ambien) 5 mg PO HS PRN PRN Reason: Insomnia Stop: 10/26/18 22:13 General: demented HEENT: NC/AT, PERRLA Neck: Supple Lungs: CTAB Cardiovascular: RRR, Normal S1, without murmur Extremities: excoriation Neurological: no change Internal Medicine Assmt/Plan - Assessment Assessment: ASSESSMENT AND PLAN: Urinary tract infection, Escherichia coli and methicillin-resistant Staphylococcus aureus of the nares, obesity, congestive heart failure, hypertension, gastroesophageal reflux disease, gait imbalance, renal insufficiency, hypercholesterolemia, and hypothyroidism. - Plan Plan: PLAN: We will provide the patient with p.o. antibiotic as well as Bactroban. We will monitor for any signs or symptoms of fluid overload. Continue on a diuretic. We will titrate the patient on antihypertensive medication. We will monitor her blood pressure closely. Continue proton pump inhibitor. Continue on anticoagulation. Continue with current care. We will follow compensation consultant recommendations. Nutritional Asmnt/Malnutr-PDOC - Dietary Evaluation Malnutrition Findings (Please click <Entered> for more info): Nutritional Asmnt/Malnutrition Start: 09/01/18 13: 45 Text: Status: Complete Freq: Protocol: Document 09/01/18 13:45 PRIYAG (Rec: 09/01/18 14:00 SARAH [email or web address]) Nutritional Asmnt/Malnutrition Patient General Information Nutritional Screening Moderate Risk Diagnosis depression Pertinent Medical Hx/Surgical Hx HTN, PUD/GERD, muscle weakness Subjective Information Per EMR, PO intake 75-100%. Current Diet Order/ Nutrition Support [facility] soft chopped Pertinent Medications lipitor, iron, lasix, synthroid, mag-oxide, protonix , seroquel Pertinent Labs 08/27 BUN 34, Cr 1.3, glucose 128, POC 115 Nutritional Hx/Data Height 1.7 m Height (Calculated Centimeters) 170.2 Current Weight (lbs) 77.111 kg Weight (Calculated Kilograms) 77.1 Weight (Calculated Grams) 50600.7 [place] Body Weight 135 Body Mass Index (BMI) 26.6 Weight Status Overweight GI Symptoms GI Symptoms None Last BM 08/30 Difficult in: None Skin Integrity/Comment: intact Current %PO Good (75-100%) Estimated Nutritional Goals BEE in Kcals: Using Current wt Calories/Kcals/Kg 23-27 Kcals Calculated 4692-1421 Protein: Using Current wt Protein g/k.8 monitor renal labs Protein Calculated 62 Fluid: ml 1770-2078ml (1m/kcal) Nutritional Problem 1. Problem Problem altered nutrition relate labs Etiology possible renal dysfunction Signs/Symptoms: BUN 34, Cr 1.3 Malnutrition Alert Is there a minimum of two criteria No selected? Query Text:Check all the applicable criteria. A minimum of two criteria are recommended for diagnosis of either severe or non-severe malnutrition. Malnutrition Related to Morbid Obesity Malnutrition related to morbid obesity No Intervention/Recommendation Comments 1. Continue with [facility] soft chopped diet as ordered. Consider to limit protein intake if BUN/Cr continue elevated. 2. Monitor PO intake, wt, labs and skin integrity 3. F/U as low risk in 7 days Expected Outcomes/Goals Expected Outcomes/Goals 1. PO intake to meet at least 75% of nutritional needs. 2. Wt stability, skin to remain intact, labs to approach WNL.
--- NOTE | 2018-09-03 18:43 | Progress Notes ---
DATE: 09/03/2018 SUBJECTIVE: The patient was seen, discussed with staff. Still irritable, anxious to have some episodes of agitation. At times he refuses care. The patient's appetite is also being monitored closely by staff. ASSESSMENT: The patient is still paranoid, anxious, and confused. PLAN: Continue hospitalization, medication management, continue current level of care. The patient is taking Seroquel 25 mg p.o. at bedtime. JOB# [id number]
[2018-09-03] MEDS: Atorvastatin Calcium 10 MG TAB PO SCH (20:52)
[2018-09-04] MEDS: Pantoprazole 40 mg EC Tab PO SCH (06:40)
[2018-09-04] MEDS: Levothyroxine 0.1 Mg Tab PO SCH (06:40)
[2018-09-04] MEDS: Sulfamethoxazole/TMP 800/160mg Tab PO SCH ×2 (09:00→17:59)
[2018-09-04] MEDS: Ferrous Sulfate 325 MG TAB PO SCH (09:13)
[2018-09-04] MEDS: Multivitamin w/ Minerals Tab PO SCH (09:15)
[2018-09-04] MEDS: Escitalopram Oxalate 5 mg Tab PO SCH (09:16)
--- NOTE | 2018-09-04 13:04 | Internal Medicine Prog Note ---
Internal Medicine Subjective - Subjective Service Date: 09/04/18 Patient is:: awake, verbal, interactive Per staff patient has:: no adverse event, no episodes of fall, poor appetite, tolerating meds Internal Medicine Objective - Results Result Diagrams: 08/27/18 18:25 08/27/18 18:25 Recent Labs: Laboratory Last Values WBC 5.7 Th/cmm (4.8-10.8) 08/27/18 18:25 RBC 4.70 Mil/cmm (3.80-5.20) 08/27/18 18:25 Hgb 13.0 gm/dL (12-16) 08/27/18 18:25 Hct 40.2 % (41.0-60) L 08/27/18 18:25 MCV 85.5 fl (81-100) 08/27/18 18:25 MCH 27.8 pg (27.0-31.0) 08/27/18 18:25 MCHC Differential 32.5 pg (28.0-36.0) 08/27/18 18:25 RDW 15.8 % (11.5-20.0) 08/27/18 18:25 Plt Count 160 Th/cmm (150-400) 08/27/18 18:25 MPV 8.6 fl 08/27/18 18:25 Neutrophils % 70.9 % (40.0-80.0) 08/27/18 18:25 Lymphocytes % 21.8 % (20.0-50.0) 08/27/18 18:25 Monocytes % 6.1 % (2.0-10.0) 08/27/18 18:25 Eosinophils % 0.8 % (0.0-5.0) 08/27/18 18:25 Basophils % 0.4 % (0.0-2.0) 08/27/18 18:25 Sodium 140 mEq/L (136-145) 08/27/18 18:25 Potassium 4.1 mEq/L (3.5-5.1) 08/27/18 18:25 Chloride 106 mEq/L (98-107) 08/27/18 18:25 Carbon Dioxide 26.1 mEq/L (21.0-31.0) 08/27/18 18:25 Anion Gap 12.0 (7.0-16.0) 08/27/18 18:25 BUN 34 mg/dL (7-25) H 08/27/18 18:25 Creatinine 1.3 mg/dL (0.6-1.2) H 08/27/18 18:25 Est GFR ( Amer) TNP 08/27/18 18:25 Est GFR (Non-Af Amer) TNP 08/27/18 18:25 BUN/Creatinine Ratio 26.2 08/27/18 18:25 Glucose 128 mg/dL (70-105) H 08/27/18 18:25 POC Glucose 115 MG/DL (70 - 105) H 08/27/18 23:22 Calcium 9.3 mg/dL (8.6-10.3) 08/27/18 18:25 Phosphorus 2.8 mg/dL (2.5-5.0) 08/27/18 18:25 Magnesium 2.1 mg/dL (1.9-2.7) 08/27/18 18:25 Total Bilirubin 0.6 mg/dL (0.3-1.0) 08/27/18 18:25 AST 26 U/L (13-39) 08/27/18 18:25 ALT 27 U/L (7-52) 08/27/18 18:25 Alkaline Phosphatase 65 U/L (34-104) 08/27/18 18:25 Total Protein 5.8 gm/dL (6.0-8.3) L 08/27/18 18:25 Albumin 3.7 gm/dL (3.7-5.3) 08/27/18 18:25 Globulin 2.1 gm/dL 08/27/18 18:25 Albumin/Globulin Ratio 1.8 (1.0-1.8) 08/27/18 18:25 Triglycerides 70 mg/dL (<150) 08/27/18 18:25 Cholesterol 106 mg/dL (<200) 08/27/18 18:25 LDL Cholesterol Direct 55 mg/dL (75-193) L 08/27/18 18:25 HDL Cholesterol 41 mg/dL (23-92) 08/27/18 18:25 TSH 5.36 uIU/ml (0.34-5.60) 08/27/18 18:25 Urine Source CLEAN C 08/27/18 18:15 Urine Color YELLOW 08/27/18 18:15 Urine Clarity HAZY (CLEAR) 08/27/18 18:15 Urine pH 5.5 (4.6 - 8.0) 08/27/18 18:15 Ur Specific [place] 1.010 (1.005-1.030) 08/27/18 18:15 Urine Protein NEGATIVE mg/dL (NEGATIVE) 08/27/18 18:15 Urine Glucose (UA) NEGATIVE mg/dL (NEGATIVE) 08/27/18 18:15 Urine Ketones NEGATIVE mg/dL (NEGATIVE) 08/27/18 18:15 Urine Blood NEGATIVE (NEGATIVE) 08/27/18 18:15 Urine Nitrate NEGATIVE (NEGATIVE) 08/27/18 18:15 Urine Bilirubin NEGATIVE (NEGATIVE) 08/27/18 18:15 Urine Urobilinogen 0.2 E.U./dL (0.2 - 1.0) 08/27/18 18:15 Ur Leukocyte Esterase SMALL (NEGATIVE) H 08/27/18 18:15 Urine RBC NONE SEEN /hpf (0-5) 08/27/18 18:15 Urine WBC 6-10 /hpf (0-5) H 08/27/18 18:15 Ur Epithelial Cells FEW /lpf (FEW) 08/27/18 18:15 Urine Bacteria MODERATE /hpf (NONE SEEN) H 08/27/18 18:15 - Physical Exam Vitals and I&O: Vital Signs Temp 97.4 F 09/04/18 06:42 Pulse 77 09/04/18 09:17 Resp 18 09/04/18 06:42 BP 112/65 09/04/18 09:17 Pulse Ox 98 09/04/18 06:42 Intake & Output 09/03/18 09/04/18 09/04/18 18:59 06:59 18:59 Intake Total 1450 180 Balance 1450 180 Intake: Oral 1450 180 Other: # Voids 3 2 # Bowel Movements 0 1 Active Medications: Current Medications Acetaminophen (Tylenol) 325 mg PO Q4H PRN PRN Reason: MILD PAIN Stop: 10/27/18 03:53 Atorvastatin Calcium (Lipitor) 20 mg PO HS [facility]; Protocol Stop: 10/27/18 20:59 Last Admin: 09/03/18 20:52 Dose: 20 mg Bisacodyl (Dulcolax 10 Mg Supp) 10 mg RC DAILY PRN PRN Reason: IF MOM INEFFECTIVE Stop: 04/10/19 03:53 Escitalopram Oxalate (Lexapro) 5 mg PO DAILY [facility]; Protocol Stop: 10/27/18 08:59 Last Admin: 09/04/18 09:16 Dose: Not Given Ferrous Sulfate (Iron) 325 mg PO DAILY [facility] Stop: 10/27/18 08:59 Last Admin: 09/04/18 09:13 Dose: 325 mg Furosemide (Lasix) 20 mg PO DAILY [facility] Stop: 10/27/18 08:59 Last Admin: 09/04/18 09:16 Dose: Not Given Levothyroxine Sodium (Synthroid) 0.1 mg PO QDAC [facility] Stop: 10/27/18 07:29 Last Admin: 09/04/18 06:40 Dose: 0.1 mg Lorazepam (Ativan) 0.5 mg PO Q4HR PRN; Protocol PRN Reason: Anxiety Stop: 09/26/18 20:29 Losartan Potassium (Cozaar) 50 mg PO DAILY [facility] Stop: 10/31/18 08:59 Last Admin: 09/04/18 09:17 Dose: Not Given Magnesium Hydroxide (Milk Of Magnesia) 30 ml PO DAILY PRN PRN Reason: BOWEL MAINTENANCE Stop: 10/27/18 03:53 Magnesium Oxide (Mag-Oxide) 400 mg PO DAILY [facility] Stop: 10/27/18 08:59 Last Admin: 09/04/18 09:00 Dose: 400 mg Mupirocin (Bactroban Oint) 1 appl TP BID [facility] Stop: 09/05/18 16:59 Last Admin: 09/04/18 09:18 Dose: 1 appl Pantoprazole Sodium (Protonix) 40 mg PO QDAC [facility] Stop: 10/27/18 07:29 Last Admin: 09/04/18 06:40 Dose: 40 mg Quetiapine Fumarate (Seroquel) 25 mg PO HS [facility]; Protocol Stop: 10/26/18 22:59 Last Admin: 09/03/18 20:53 Dose: 25 mg Rivaroxaban (Xarelto) 10 mg PO DAILY [facility] Stop: 10/27/18 08:59 Last Admin: 09/04/18 09:15 Dose: 10 mg Trimethoprim/Sulfamethoxazole (Bactrim Ds) 1 tab PO BID [facility] Stop: 09/05/18 16:59 Last Admin: 09/04/18 09:00 Dose: 1 tab Zolpidem Tartrate (Ambien) 5 mg PO HS PRN PRN Reason: Insomnia Stop: 10/26/18 22:13 General: demented HEENT: NC/AT, PERRLA Neck: Supple Lungs: CTAB Cardiovascular: RRR, Normal S1, without murmur Extremities: excoriation Neurological: no change Internal Medicine Assmt/Plan - Assessment Assessment: uti mrsa nares obesity chf htn gerd gait imbalance - Plan Plan: monitor i+o closely fall precautions cont bactroban and oral abx continue current plan of care Nutritional Asmnt/Malnutr-PDOC - Dietary Evaluation Malnutrition Findings (Please click <Entered> for more info): Nutritional Asmnt/Malnutrition Start: 09/01/18 13: 45 Text: Status: Complete Freq: Protocol: Document 09/01/18 13:45 SARAH (Rec: 09/01/18 14:00 SARAH [email or web address]) Nutritional Asmnt/Malnutrition Patient General Information Nutritional Screening Moderate Risk Diagnosis depression Pertinent Medical Hx/Surgical Hx HTN, PUD/GERD, muscle weakness Subjective Information Per EMR, PO intake 75-100%. Current Diet Order/ Nutrition Support [facility] soft chopped Pertinent Medications lipitor, iron, lasix, synthroid, mag-oxide, protonix , seroquel Pertinent Labs 08/27 BUN 34, Cr 1.3, glucose 128, POC 115 Nutritional Hx/Data Height 5 ft 7 in Height (Calculated Centimeters) 170.2 Current Weight (lbs) 170 lb Weight (Calculated Kilograms) 77.1 Weight (Calculated Grams) 99176.7 [place] Body Weight 135 Body Mass Index (BMI) 26.6 Weight Status Overweight GI Symptoms GI Symptoms None Last BM 08/30 Difficult in: None Skin Integrity/Comment: intact Current %PO Good (75-100%) Estimated Nutritional Goals BEE in Kcals: Using Current wt Calories/Kcals/Kg 23-27 Kcals Calculated 6060-2529 Protein: Using Current wt Protein g/k.8 monitor renal labs Protein Calculated 62 Fluid: ml 1771-2079ml (1m/kcal) Nutritional Problem 1. Problem Problem altered nutrition relate labs Etiology possible renal dysfunction Signs/Symptoms: BUN 34, Cr 1.3 Malnutrition Alert Is there a minimum of two criteria No selected? Query Text:Check all the applicable criteria. A minimum of two criteria are recommended for diagnosis of either severe or non-severe malnutrition. Malnutrition Related to Morbid Obesity Malnutrition related to morbid obesity No Intervention/Recommendation Comments 1. Continue with [facility] soft chopped diet as ordered. Consider to limit protein intake if BUN/Cr continue elevated. 2. Monitor PO intake, wt, labs and skin integrity 3. F/U as low risk in 7 days Expected Outcomes/Goals Expected Outcomes/Goals 1. PO intake to meet at least 75% of nutritional needs. 2. Wt stability, skin to remain intact, labs to approach WNL.
[2018-09-04] MEDS: Atorvastatin Calcium 10 MG TAB PO SCH (20:56)
--- NOTE | 2018-09-05 00:48 | Progress Notes ---
DATE: 09/04/2018 SUBJECTIVE: Met this patient, discussed with staff. She continues to have episodes of irritability, still anxious, depressed, episodes where she is refusing care and with prompting from staff, however, she is taking her medications. Appetite is fair at this time. The patient still appears to be paranoid. PLAN: We will continue supportive measures, continue stabilization. Continue current level of care. Continue current dose of Seroquel 25 mg at bedtime. [facility]# [id number]
[2018-09-05] MEDS: Levothyroxine 0.1 Mg Tab PO SCH (06:45)
[2018-09-05] MEDS: Pantoprazole 40 mg EC Tab PO SCH (06:45)
[2018-09-05] MEDS: Sulfamethoxazole/TMP 800/160mg Tab PO SCH (09:00)
[2018-09-05] MEDS: Ferrous Sulfate 325 MG TAB PO SCH (09:45)
[2018-09-05] MEDS: Multivitamin w/ Minerals Tab PO SCH (09:46)
[2018-09-05] MEDS: Escitalopram Oxalate 5 mg Tab PO SCH (12:48)
--- NOTE | 2018-09-05 13:40 | Progress Notes ---
DATE: 09/05/2018 SUBJECTIVE: Staff was spoken to. The patient is interviewed. Chart is reviewed. The patient continues to be irritable and angry. Affect is constricted. Insight and judgment at this time are noted to be still impaired. Impulse control seems to be limited. The patient has been isolative and withdrawn and has been focusing that she should not be in here, she should be at the facility and the patient has been having difficult time with the hearing. ASSESSMENT: The patient is still depressed. PLAN: To continue the patient with the current medications and followup. JOB# [id number]
--- NOTE | 2018-09-05 14:33 | Internal Medicine Prog Note ---
Internal Medicine Subjective - Subjective Service Date: 09/05/18 Patient is:: awake, verbal, interactive Per staff patient has:: no adverse event, no episodes of fall, poor appetite, tolerating meds Internal Medicine Objective - Results Result Diagrams: 08/27/18 18:25 08/27/18 18:25 Recent Labs: Laboratory Last Values WBC 5.7 Th/cmm (4.8-10.8) 08/27/18 18:25 RBC 4.70 Mil/cmm (3.80-5.20) 08/27/18 18:25 Hgb 13.0 gm/dL (12-16) 08/27/18 18:25 Hct 40.2 % (41.0-60) L 08/27/18 18:25 MCV 85.5 fl (81-100) 08/27/18 18:25 MCH 27.8 pg (27.0-31.0) 08/27/18 18:25 MCHC Differential 32.5 pg (28.0-36.0) 08/27/18 18:25 RDW 15.8 % (11.5-20.0) 08/27/18 18:25 Plt Count 160 Th/cmm (150-400) 08/27/18 18:25 MPV 8.6 fl 08/27/18 18:25 Neutrophils % 70.9 % (40.0-80.0) 08/27/18 18:25 Lymphocytes % 21.8 % (20.0-50.0) 08/27/18 18:25 Monocytes % 6.1 % (2.0-10.0) 08/27/18 18:25 Eosinophils % 0.8 % (0.0-5.0) 08/27/18 18:25 Basophils % 0.4 % (0.0-2.0) 08/27/18 18:25 Sodium 140 mEq/L (136-145) 08/27/18 18:25 Potassium 4.1 mEq/L (3.5-5.1) 08/27/18 18:25 Chloride 106 mEq/L (98-107) 08/27/18 18:25 Carbon Dioxide 26.1 mEq/L (21.0-31.0) 08/27/18 18:25 Anion Gap 12.0 (7.0-16.0) 08/27/18 18:25 BUN 34 mg/dL (7-25) H 08/27/18 18:25 Creatinine 1.3 mg/dL (0.6-1.2) H 08/27/18 18:25 Est GFR ( Amer) TNP 08/27/18 18:25 Est GFR (Non-Af Amer) TNP 08/27/18 18:25 BUN/Creatinine Ratio 26.2 08/27/18 18:25 Glucose 128 mg/dL (70-105) H 08/27/18 18:25 POC Glucose 115 MG/DL (70 - 105) H 08/27/18 23:22 Calcium 9.3 mg/dL (8.6-10.3) 08/27/18 18:25 Phosphorus 2.8 mg/dL (2.5-5.0) 08/27/18 18:25 Magnesium 2.1 mg/dL (1.9-2.7) 08/27/18 18:25 Total Bilirubin 0.6 mg/dL (0.3-1.0) 08/27/18 18:25 AST 26 U/L (13-39) 08/27/18 18:25 ALT 27 U/L (7-52) 08/27/18 18:25 Alkaline Phosphatase 65 U/L (34-104) 08/27/18 18:25 Total Protein 5.8 gm/dL (6.0-8.3) L 08/27/18 18:25 Albumin 3.7 gm/dL (3.7-5.3) 08/27/18 18:25 Globulin 2.1 gm/dL 08/27/18 18:25 Albumin/Globulin Ratio 1.8 (1.0-1.8) 08/27/18 18:25 Triglycerides 70 mg/dL (<150) 08/27/18 18:25 Cholesterol 106 mg/dL (<200) 08/27/18 18:25 LDL Cholesterol Direct 55 mg/dL (75-193) L 08/27/18 18:25 HDL Cholesterol 41 mg/dL (23-92) 08/27/18 18:25 TSH 5.36 uIU/ml (0.34-5.60) 08/27/18 18:25 Urine Source CLEAN C 08/27/18 18:15 Urine Color YELLOW 08/27/18 18:15 Urine Clarity HAZY (CLEAR) 08/27/18 18:15 Urine pH 5.5 (4.6 - 8.0) 08/27/18 18:15 Ur Specific [place] 1.010 (1.005-1.030) 08/27/18 18:15 Urine Protein NEGATIVE mg/dL (NEGATIVE) 08/27/18 18:15 Urine Glucose (UA) NEGATIVE mg/dL (NEGATIVE) 08/27/18 18:15 Urine Ketones NEGATIVE mg/dL (NEGATIVE) 08/27/18 18:15 Urine Blood NEGATIVE (NEGATIVE) 08/27/18 18:15 Urine Nitrate NEGATIVE (NEGATIVE) 08/27/18 18:15 Urine Bilirubin NEGATIVE (NEGATIVE) 08/27/18 18:15 Urine Urobilinogen 0.2 E.U./dL (0.2 - 1.0) 08/27/18 18:15 Ur Leukocyte Esterase SMALL (NEGATIVE) H 08/27/18 18:15 Urine RBC NONE SEEN /hpf (0-5) 08/27/18 18:15 Urine WBC 6-10 /hpf (0-5) H 08/27/18 18:15 Ur Epithelial Cells FEW /lpf (FEW) 08/27/18 18:15 Urine Bacteria MODERATE /hpf (NONE SEEN) H 08/27/18 18:15 - Physical Exam Vitals and I&O: Vital Signs Temp 97.3 F 09/05/18 06:33 Pulse 72 09/05/18 06:33 Resp 20 09/05/18 06:33 BP 106/61 09/05/18 06:33 Pulse Ox 97 09/04/18 20:43 Intake & Output 09/04/18 09/05/18 09/05/18 18:59 06:59 18:59 Intake Total 240 Balance 240 Intake: Oral 240 Other: # Voids 2 # Bowel Movements 1 Active Medications: Current Medications Acetaminophen (Tylenol) 325 mg PO Q4H PRN PRN Reason: MILD PAIN Stop: 10/27/18 03:53 Atorvastatin Calcium (Lipitor) 20 mg PO HS [facility]; Protocol Stop: 10/27/18 20:59 Last Admin: 09/04/18 20:56 Dose: 20 mg Bisacodyl (Dulcolax 10 Mg Supp) 10 mg RC DAILY PRN PRN Reason: IF MOM INEFFECTIVE Stop: 10/27/18 03:53 Escitalopram Oxalate (Lexapro) 5 mg PO DAILY [facility]; Protocol Stop: 10/27/18 08:59 Last Admin: 09/05/18 12:48 Dose: Not Given Ferrous Sulfate (Iron) 325 mg PO DAILY [facility] Stop: 10/27/18 08:59 Last Admin: 09/05/18 09:45 Dose: 325 mg Furosemide (Lasix) 20 mg PO DAILY [facility] Stop: 10/27/18 08:59 Last Admin: 09/04/18 09:16 Dose: Not Given Levothyroxine Sodium (Synthroid) 0.1 mg PO QDAC [facility] Stop: 10/27/18 07:29 Last Admin: 09/05/18 06:45 Dose: 0.1 mg Lorazepam (Ativan) 0.5 mg PO Q4HR PRN; Protocol PRN Reason: Anxiety Stop: 09/26/18 20:29 Losartan Potassium (Cozaar) 50 mg PO DAILY [facility] Stop: 10/31/18 08:59 Last Admin: 09/04/18 09:17 Dose: Not Given Magnesium Hydroxide (Milk Of Magnesia) 30 ml PO DAILY PRN PRN Reason: BOWEL MAINTENANCE Stop: 10/27/18 03:53 Magnesium Oxide (Mag-Oxide) 400 mg PO DAILY [facility] Stop: 10/27/18 08:59 Last Admin: 09/05/18 09:00 Dose: 400 mg Mupirocin (Bactroban Oint) 1 appl TP BID [facility] Stop: 09/05/18 16:59 Last Admin: 09/04/18 18:00 Dose: 1 appl Pantoprazole Sodium (Protonix) 40 mg PO QDAC [facility] Stop: 10/27/18 07:29 Last Admin: 09/05/18 06:45 Dose: 40 mg Quetiapine Fumarate (Seroquel) 25 mg PO HS [facility]; Protocol Stop: 10/26/18 22:59 Last Admin: 09/04/18 20:56 Dose: 25 mg Rivaroxaban (Xarelto) 10 mg PO DAILY [facility] Stop: 10/27/18 08:59 Last Admin: 09/05/18 09:46 Dose: 10 mg Trimethoprim/Sulfamethoxazole (Bactrim Ds) 1 tab PO BID [facility] Stop: 09/05/18 16:59 Last Admin: 09/05/18 09:00 Dose: 1 tab Zolpidem Tartrate (Ambien) 5 mg PO HS PRN PRN Reason: Insomnia Stop: 10/26/18 22:13 General: demented HEENT: NC/AT, PERRLA Neck: Supple Lungs: CTAB Cardiovascular: RRR, Normal S1, without murmur Extremities: excoriation Neurological: no change Internal Medicine Assmt/Plan - Assessment Assessment: uti mrsa nares obesity chf htn gerd gait imbalance - Plan Plan: monitor i+o closely fall precautions cont bactroban and oral abx continue current plan of care Nutritional Asmnt/Malnutr-PDOC - Dietary Evaluation Malnutrition Findings (Please click <Entered> for more info): Nutritional Asmnt/Malnutrition Start: 09/01/18 13: 45 Text: Status: Complete Freq: Protocol: Document 09/01/18 13:45 SARAH (Rec: 09/01/18 14:00 SARAH [email or web address]) Nutritional Asmnt/Malnutrition Patient General Information Nutritional Screening Moderate Risk Diagnosis depression Pertinent Medical Hx/Surgical Hx HTN, PUD/GERD, muscle weakness Subjective Information Per EMR, PO intake 75-100%. Current Diet Order/ Nutrition [facility] Pertinent Medications lipitor, iron, lasix, synthroid, mag-oxide, protonix , seroquel Pertinent Labs 2 BUN 34, Cr 1.3, glucose 128, POC 115 Nutritional Hx/Data Height 5 ft 7 in Height (Calculated Centimeters) 170.2 Current Weight (lbs) 170 lb Weight (Calculated Kilograms) 77.1 Weight (Calculated Grams) 99072.7 [place] Body Weight 135 Body Mass Index (BMI) 26.6 Weight Status Overweight GI Symptoms GI Symptoms None Last BM 08/30 Difficult in: None Skin Integrity/Comment: intact Current %PO Good (75-100%) Estimated Nutritional Goals BEE in Kcals: Using Current wt Calories/Kcals/Kg 23-27 Kcals Calculated 7246-3619 Protein: Using Current wt Protein g/k.8 monitor renal labs Protein Calculated 62 Fluid: ml 1771-2079ml (1m/kcal) Nutritional Problem 1. Problem Problem altered nutrition relate labs Etiology possible renal dysfunction Signs/Symptoms: BUN 34, Cr 1.3 Malnutrition Alert Is there a minimum of two criteria No selected? Query Text:Check all the applicable criteria. A minimum of two criteria are recommended for diagnosis of either severe or non-severe malnutrition. Malnutrition Related to Morbid Obesity Malnutrition related to morbid obesity No Intervention/Recommendation Comments 1. Continue with [facility] diet as ordered. Consider to limit protein intake if BUN/Cr continue elevated. 2. Monitor PO intake, wt, labs and skin integrity 3. F/U as low risk in 7 days Expected Outcomes/Goals Expected Outcomes/Goals 1. PO intake to meet at least 75% of nutritional needs. 2. Wt stability, skin to remain intact, labs to approach WNL.
[2018-09-05] MEDS: Atorvastatin Calcium 10 MG TAB PO SCH (21:36)
[2018-09-06] MEDS: Levothyroxine 0.1 Mg Tab PO SCH (06:56)
[2018-09-06] MEDS: Pantoprazole 40 mg EC Tab PO SCH (06:56)
[2018-09-06] MEDS: Multivitamin w/ Minerals Tab PO SCH (09:21)
[2018-09-06] MEDS: Ferrous Sulfate 325 MG TAB PO SCH (09:22)
[2018-09-06] MEDS: Escitalopram Oxalate 5 mg Tab PO SCH (10:46)
--- NOTE | 2018-09-06 13:24 | Internal Medicine Prog Note ---
Internal Medicine Subjective - Subjective Patient seen and examined:: with staff, chart reviewed Patient is:: awake, verbal, interactive Per staff patient has:: no adverse event, no episodes of fall, poor appetite, tolerating meds Internal Medicine Objective - Results Result Diagrams: 08/27/18 18:25 08/27/18 18:25 Recent Labs: Laboratory Last Values WBC 5.7 Th/cmm (4.8-10.8) 08/27/18 18:25 RBC 4.70 Mil/cmm (3.80-5.20) 08/27/18 18:25 Hgb 13.0 gm/dL (12-16) 08/27/18 18:25 Hct 40.2 % (41.0-60) L 08/27/18 18: MCV 85.5 fl (81-100) 08/27/18 18:25 MCH 27.8 pg (27.0-31.0) 08/27/18 18: MCHC Differential 32.5 pg (28.0-36.0) 08/27/18 18:25 RDW 15.8 % (11.5-20.0) 08/27/18 18:25 Plt Count 160 Th/cmm (150-400) 08/27/18 18:25 MPV 8.6 fl 08/27/18 18:25 Neutrophils % 70.9 % (40.0-80.0) 08/27/18 18:25 Lymphocytes % 21.8 % (20.0-50.0) 08/27/18 18: Monocytes % 6.1 % (2.0-10.0) 08/27/18 18:25 Eosinophils % 0.8 % (0.0-5.0) 08/27/18 18:25 Basophils % 0.4 % (0.0-2.0) 08/27/18 18:25 Sodium 140 mEq/L (136-145) 08/27/18 18:25 Potassium 4.1 mEq/L (3.5-5.1) 08/27/18 18:25 Chloride 106 mEq/L (98-107) 08/27/18 18:25 Carbon Dioxide 26.1 mEq/L (21.0-31.0) 08/27/18 18:25 Anion Gap 12.0 (7.0-16.0) 08/27/18 18:25 BUN 34 mg/dL (7-25) H 08/27/18 18:25 Creatinine 1.3 mg/dL (0.6-1.2) H 08/27/18 18:25 Est GFR ( Amer) TNP 08/27/18 18:25 Est GFR (Non-Af Amer) TNP 08/27/18 18:25 BUN/Creatinine Ratio 26.2 08/27/18 18:25 Glucose 128 mg/dL (70-105) H 08/27/18 18:25 POC Glucose 115 MG/DL (70 - 105) H 08/27/18 23:22 Calcium 9.3 mg/dL (8.6-10.3) 08/27/18 18:25 Phosphorus 2.8 mg/dL (2.5-5.0) 08/27/18 18:25 Magnesium 2.1 mg/dL (1.9-2.7) 08/27/18 18:25 Total Bilirubin 0.6 mg/dL (0.3-1.0) 08/27/18 18:25 AST 26 U/L (13-39) 08/27/18 18:25 ALT 27 U/L (7-52) 08/27/18 18:25 Alkaline Phosphatase 65 U/L (34-104) 08/27/18 18:25 Total Protein 5.8 gm/dL (6.0-8.3) L 08/27/18 18:25 Albumin 3.7 gm/dL (3.7-5.3) 08/27/18 18:25 Globulin 2.1 gm/dL 08/27/18 18:25 Albumin/Globulin Ratio 1.8 (1.0-1.8) 08/27/18 18:25 Triglycerides 70 mg/dL (<150) 08/27/18 18:25 Cholesterol 106 mg/dL (<200) 08/27/18 18:25 LDL Cholesterol Direct 55 mg/dL (75-193) L 08/27/18 18:25 HDL Cholesterol 41 mg/dL (23-92) 08/27/18 18:25 TSH 5.36 uIU/ml (0.34-5.60) 08/27/18 18:25 Urine Source CLEAN C 08/27/18 18:15 Urine Color YELLOW 08/27/18 18:15 Urine Clarity HAZY (CLEAR) 08/27/18 18:15 Urine pH 5.5 (4.6 - 8.0) 08/27/18 18:15 Ur Specific [place] 1.010 (1.005-1.030) 08/27/18 18:15 Urine Protein NEGATIVE mg/dL (NEGATIVE) 08/27/18 18:15 Urine Glucose (UA) NEGATIVE mg/dL (NEGATIVE) 08/27/18 18:15 Urine Ketones NEGATIVE mg/dL (NEGATIVE) 08/27/18 18:15 Urine Blood NEGATIVE (NEGATIVE) 08/27/18 18:15 Urine Nitrate NEGATIVE (NEGATIVE) 08/27/18 18:15 Urine Bilirubin NEGATIVE (NEGATIVE) 08/27/18 18:15 Urine Urobilinogen 0.2 E.U./dL (0.2 - 1.0) 08/27/18 18:15 Ur Leukocyte Esterase SMALL (NEGATIVE) H 08/27/18 18:15 Urine RBC NONE SEEN /hpf (0-5) 08/27/18 18:15 Urine WBC 6-10 /hpf (0-5) H 08/27/18 18:15 Ur Epithelial Cells FEW /lpf (FEW) 08/27/18 18:15 Urine Bacteria MODERATE /hpf (NONE SEEN) H 08/27/18 18:15 - Physical Exam Vitals and I&O: Vital Signs Temp 97.8 F 09/06/18 06:21 Pulse 89 09/06/18 09:21 Resp 19 09/06/18 06:21 BP 115/60 09/06/18 10:07 Pulse Ox 97 09/06/18 06:21 Intake & Output 09/05/18 09/06/18 09/06/18 18:59 06:59 18:59 Intake Total 480 Balance 480 Intake: Oral 480 Other: # Voids 1 Active Medications: Current Medications Acetaminophen (Tylenol) 325 mg PO Q4H PRN PRN Reason: MILD PAIN Stop: 10/27/18 03:53 Atorvastatin Calcium (Lipitor) 20 mg PO HS [facility]; Protocol Stop: 10/27/18 20:59 Last Admin: 09/05/18 21:36 Dose: 20 mg Bisacodyl (Dulcolax 10 Mg Supp) 10 mg RC DAILY PRN PRN Reason: IF MOM INEFFECTIVE Stop: 10/27/18 03:53 Escitalopram Oxalate (Lexapro) 5 mg PO DAILY [facility]; Protocol Stop: 10/27/18 08:59 Last Admin: 09/06/18 10:46 Dose: 5 mg Ferrous Sulfate (Iron) 325 mg PO DAILY [facility] Stop: 10/27/18 08:59 Last Admin: 09/06/18 09:22 Dose: Not Given Furosemide (Lasix) 20 mg PO DAILY [facility] Stop: 10/27/18 08:59 Last Admin: 09/06/18 10:07 Dose: Not Given Levothyroxine Sodium (Synthroid) 0.1 mg PO QDAC [facility] Stop: 10/27/18 07:29 Last Admin: 09/06/18 06:56 Dose: 0.1 mg Lorazepam (Ativan) 0.5 mg PO Q4HR PRN; Protocol PRN Reason: Anxiety Stop: 09/26/18 20:29 Losartan Potassium (Cozaar) 50 mg PO DAILY [facility] Stop: 10/31/18 08:59 Last Admin: 09/06/18 09:21 Dose: Not Given Magnesium Hydroxide (Milk Of Magnesia) 30 ml PO DAILY PRN PRN Reason: BOWEL MAINTENANCE Stop: 10/27/18 03:53 Magnesium Oxide (Mag-Oxide) 400 mg PO DAILY [facility] Stop: 10/27/18 08:59 Last Admin: 09/06/18 10:47 Dose: 400 mg Pantoprazole Sodium (Protonix) 40 mg PO QDAC [facility] Stop: 10/27/18 07:29 Last Admin: 09/06/18 06:56 Dose: 40 mg Quetiapine Fumarate (Seroquel) 25 mg PO HS [facility]; Protocol Stop: 10/26/18 22:59 Last Admin: 09/05/18 21:36 Dose: 25 mg Rivaroxaban (Xarelto) 10 mg PO DAILY [facility] Stop: 10/27/18 08:59 Last Admin: 09/06/18 10:47 Dose: 10 mg Zolpidem Tartrate (Ambien) 5 mg PO HS PRN PRN Reason: Insomnia Stop: 10/26/18 22:13 General: demented HEENT: NC/AT, PERRLA Neck: Supple Lungs: CTAB Cardiovascular: RRR, Normal S1, without murmur Extremities: excoriation Neurological: no change Internal Medicine Assmt/Plan - Assessment Assessment: ASSESSMENT AND PLAN: Urinary tract infection, Escherichia coli and methicillin-resistant Staphylococcus aureus of the nares, obesity, congestive heart failure, hypertension, gastroesophageal reflux disease, gait imbalance, renal insufficiency, hypercholesterolemia, and hypothyroidism. - Plan Plan: PLAN: We will provide the patient with p.o. antibiotic as well as Bactroban. We will monitor for any signs or symptoms of fluid overload. Continue on a diuretic. We will titrate the patient on antihypertensive medication. We will monitor her blood pressure closely. Continue proton pump inhibitor. Continue on anticoagulation. Continue with current care. We will follow computer systems consultant recommendations. Nutritional Asmnt/Malnutr-PDOC - Dietary Evaluation Malnutrition Findings (Please click <Entered> for more info): Nutritional Asmnt/Malnutrition Start: 09/01/18 13: 45 Text: Status: Complete Freq: Protocol: Document 09/01/18 13:45 SARAH (Rec: 09/01/18 14:00 SARAH [email or web address]) Nutritional Asmnt/Malnutrition Patient General Information Nutritional Screening Moderate Risk Diagnosis depression Pertinent Medical Hx/Surgical Hx HTN, PUD/GERD, muscle weakness Subjective Information Per EMR, PO intake 75-100%. Current Diet Order/ Nutrition Support [facility] soft chopped Pertinent Medications lipitor, iron, lasix, synthroid, mag-oxide, protonix , seroquel Pertinent Labs 08/27 BUN 34, Cr 1.3, glucose 128, POC 115 Nutritional Hx/Data Height 1.7 m Height (Calculated Centimeters) 170.2 Current Weight (lbs) 77.111 kg Weight (Calculated Kilograms) 77.1 Weight (Calculated Grams) 44812.7 [place] Body Weight 135 Body Mass Index (BMI) 26.6 Weight Status Overweight GI Symptoms GI Symptoms None Last BM 08/30 Difficult in: None Skin Integrity/Comment: intact Current %PO Good (75-100%) Estimated Nutritional Goals BEE in Kcals: Using Current wt Calories/Kcals/Kg 23-27 Kcals Calculated 2785-8461 Protein: Using Current wt Protein g/k.8 monitor renal labs Protein Calculated 62 Fluid: ml 1771-2079ml (1m/kcal) Nutritional Problem 1. Problem Problem altered nutrition relate labs Etiology possible renal dysfunction Signs/Symptoms: BUN 34, Cr 1.3 Malnutrition Alert Is there a minimum of two criteria No selected? Query Text:Check all the applicable criteria. A minimum of two criteria are recommended for diagnosis of either severe or non-severe malnutrition. Malnutrition Related to Morbid Obesity Malnutrition related to morbid obesity No Intervention/Recommendation Comments 1. Continue with [facility] soft chopped diet as ordered. Consider to limit protein intake if BUN/Cr continue elevated. 2. Monitor PO intake, wt, labs and skin integrity 3. F/U as low risk in 7 days Expected Outcomes/Goals Expected Outcomes/Goals 1. PO intake to meet at least 75% of nutritional needs. 2. Wt stability, skin to remain intact, labs to approach WNL.
--- NOTE | 2018-09-06 21:50 | Progress Notes ---
DATE: 09/06/2018 PSYCHOLOGY PROGRESS NOTE SUBJECTIVE: The patient is seen and is interviewed. Case is discussed with staff. The chart is reviewed. The patient continues to be somewhat irritable and guarded. The patient appears to be withdrawn. The patient continued to ask when she would be discharged. The patient was informed of the possibility of discharging today. The patient is somewhat hard of hearing. OBJECTIVE: Mood is irritable. Affect is constricted. Thought process is confused. The patient denied any hallucinations or delusions. The patient's behavior has become more goal oriented. ASSESSMENT AND PLAN: The patient denied feeling depressed. Staff indicates the patient has been taking her p.o. medications and has been compliant with staff direction, as well as with her care and treatment. We provided remotivation and positive reinforcement for the patient to stay compliant with all aspects of her care and treatment as well as to follow through with staff direction at her placement. We provided coping strategies for phase of life issues as well. No followup is indicated at this time. The staff indicates possible discharge this afternoon. Thank you, Dr. Drummond, for this consult and the opportunity to participate in this patient's care. JOB# [id number] GABRIELA
--- NOTE | 2018-09-06 23:58 | Progress Notes ---
DATE: 09/06/2018 SUBJECTIVE: Staff was spoken to. The patient is interviewed. Mood is noted to be anxious. Affect is appropriate. The patient is not suicidal or homicidal. Insight and judgment are noted to be improving. Impulse control seems to be fair. No side effects to the medications are noted. The patient is not presenting with any threats to harm self or others. ASSESSMENT: The patient is stabilizing. PLAN: To discharge the patient today for followup on an outpatient basis. JOB# [id number]
== END 2018-09-06 14:30 | DRG 885 ==
LOC: ER 18:12 → GERO 18:50
PROVIDERS: ADMIT Psychiatry & Neurology Psychiatry; ATTEND Psychiatry & Neurology Psychiatry
DX: F33.1 Major depressive disorder, recurrent, moderate (principal); N18.9 Chronic kidney disease, unspecified; F03.91 Unspecified dementia, unspecified severity, with behavioral disturbance; N39.0 Urinary tract infection, site not specified; I13.0 Hypertensive heart and chronic kidney disease with heart failure and stage 1 through stage 4 chronic kidney disease, or unspecified chronic kidney disease; K21.9 Gastro-esophageal reflux disease without esophagitis; I50.9 Heart failure, unspecified; B96.20 Unspecified Escherichia coli [E. coli] as the cause of diseases classified elsewhere; B95.62 Methicillin resistant Staphylococcus aureus infection as the cause of diseases classified elsewhere; E66.9 Obesity, unspecified; E78.00 Pure hypercholesterolemia, unspecified; E03.9 Hypothyroidism, unspecified; Z68.26 Body mass index [BMI] 26.0-26.9, adult; Z88.6 Allergy status to analgesic agent; Z88.0 Allergy status to penicillin
CPT/HCPCS: 36415-UA; 80053-TC; 80061-TC; 81001-TC; 82948-90; 83036-90; 83735-TC; 84100-TC; 84443-TC; 85025-TC; 87086-90; G0410; Z7610